=== PATIENT | male | born 1940 | race Caucasian/White ===

== ENCOUNTER → 2021-03-20 11:12 | Outpatient (CLI) | payer MEDICARE, OTHER, SELFPAY ==
--- NOTE | 2021-03-20 11:21 | RAD_ITS ---
STUDY: X-RAY - LUMBAR SPINE REASON FOR EXAM: Male, 80 years old. BACK PAIN TECHNIQUE: 2 view(s) of the lumbar spine were obtained. COMPARISON: None FINDINGS: There is straightening of the normal lumbar lordosis. There is a mild levoscoliosis of the lumbar spine. There is a normal alignment of the vertebrae. There is diffuse demineralization with multi-level endplate spondylosis. There is multi-level degenerative disc disease with multi-level disc space narrowing. 50% loss of height of the [id number]. Facet joint osteoarthritis. The soft tissue structures are unremarkable. RAD/Lumbar Spine 2 or 3 Views IMPRESSION: Degenerative changes of the spine, as detailed above. Mild levoscoliosis. Loss of the normal lumbar lordosis. 50% loss of height of the L4 vertebrae. Electronically Signed: Bucky Fletcher MD at 8:43 EDT , Service support ,
--- NOTE | 2021-03-20 11:40 | RAD_ITS ---
STUDY: X-RAY - CERVICAL SPINE REASON FOR EXAM: Male, 80 years old. Neck pain. TECHNIQUE: 3 view(s) of the cervical spine were obtained. COMPARISON: None FINDINGS: Osteopenia. Normal anterior atlantoaxial articulation. Normal odontoid process. Reversal of the normal lordotic curve, likely positional. Diffuse uncovertebral and facet sclerosis. Mild anterior wedge compression deformity of the C6 vertebral body. Diffuse intervertebral disc space narrowing most marked at C3-4, C4-5, C5-6 and C6-7. Osteophyte formation most marked at C3-4 and, C5-6 and C6-7. Bilateral carotid calcification. RAD/Cerv Spine 2 or 3 Views IMPRESSION: Osteopenia with diffuse moderate cervical spondylosis as described. No acute abnormality, evidence of erosive changes or fusion. Electronically Signed: Leonid Rowland MD at 10:56 EDT , Service support ,
[2021-03-20 12:41] LABS: Amphetamine Urine VISTA NEGATIVE (<1000 ng/mL); Barbiturate Urine VISTA NEGATIVE (< 200 ng/mL); Benzodiazepine Urine VISTA NEGATIVE (< 200 ng/mL); Cocaine Urine VISTA NEGATIVE (< 300 ng/mL); Ecstacy Urine VISTA NEGATIVE (< 500 ng/mL); Methadone Urine VISTA NEGATIVE (< 300 ng/mL); PCP Urine VISTA NEGATIVE (< 25 ng/mL); THC Urine VISTA NEGATIVE (< 50 ng/mL); Vista UDS pH Range 5
[2021-03-20 12:50] LABS: BUP Internal Control LINE = VALID (VALID); Buprenorphine Drug Screen Negative (<10 ng/mL)
== END ==
PROVIDERS: PCP Family Medicine; Referring Provider Anesthesiology Pain Medicine; Visit Provider Anesthesiology Pain Medicine
DX: F11.20 Opioid dependence, uncomplicated (principal); M54.2 Cervicalgia; M54.9 Dorsalgia, unspecified
CPT/HCPCS: 72040; 72100; 80307

== ENCOUNTER → 2021-05-30 09:42 | Outpatient (CLI) | payer MEDICARE, OTHER, SELFPAY ==
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
== END ==
PROVIDERS: PCP Family Medicine; Referring Provider Anesthesiology Pain Medicine; Visit Provider Anesthesiology Pain Medicine
DX: M54.9 Dorsalgia, unspecified (principal)
CPT/HCPCS: 72072

== ENCOUNTER → 2023-07-29 | Outpatient (REF) | payer MEDICARE, OTHER, SELFPAY ==
[2023-07-29 09:23] LABS: Absolute Lymphocyte Count 2.14 X10^3/uL (0.83-4.51); Absolute Neutrophil Count 3.4 X10^3/uL (2.0-7.7); Basophil# 0.02 X10^3/uL; Basophil% 0.3 % (0-1); Eosinophil# 0.33 X10^3/uL; Eosinophils% 4.8 % (0-5); Hematocrit 29.3 % (40-54); Hemoglobin 9.9 g/dL (13.0-16.5); Lymphocyte # 2.14 X10^3/ul (0.83-4.51); Lymphocyte % 31.4 % (19-41); Mean Corp Hgb Conc 33.8 g/dL (32-36); Mean Corpuscular Hgb 35.4 pg (27.0-32.0); Mean Corpuscular Volume 104.6 fL (80-94); Mean Platelet Vol. 12.7 fl (6.2-12.0); Monocyte# 0.86 X10^3/uL; Monocyte% 12.6 % (0-10); NRBC Flagged by Analyzer 0 % (0-5); Neutrophil # 3.44 X10^3/uL (2.7-7.7); Neutrophil % 50.6 % (47-70); POSITIVE COUNT YES; Platelet Count 75 K/mm3 (150-450); RBC Distribution Width CV 14.9 % (11.6-14.6); RBC Distribution Width SD 58.4 fl (35.1-43.9); White Blood Count 6.8 K/mm3 (4.4-11.0)
[2023-07-29 09:33] LABS: Vitamin B12 1463 pg/mL (211-911)
[2023-07-29 09:34] LABS: ALB/GLOB Ratio 0.5 RATIO (0.9-2.4); AST(SGOT) 44 U/L (15-37); Alanine Aminotransfer ALT/SGPT 31 U/L (16-61); Albumin, Serum 2.3 g/dL (3.2-5.0); Alkaline Phosphatase 136 U/L (45-117); Anion Gap 5 (5-15); BUN 21 mg/dL (7-18); BUN/Creat Ratio 16.5 RATIO (10-20); Calcium,Total 9.1 mg/dL (8.5-10.1); Chloride 104 mmol/L (98-107); Cholesterol 99 mg/dL (200); Creatinine, Serum 1.27 mg/dL (0.70-1.30); EST Glomerular Filtration Rate 58 mL/min (>60); Est Glom Filt Rate - Afr Amer 70 mL/min (>60); Globulin 4.5 g/dL (2.2-4.2); Glucose 109 mg/dL (74-106); High Density Lipoprotein 35 mg/dL; Potassium 4.2 mmol/L (3.5-5.1); Protein, Total 6.8 g/dL (6.4-8.2); Sodium Level 132 mmol/L (136-145); Triglycerides 93 mg/dL; Very Low Density Lipoprotein 19 mg/dL (5-40)
[2023-07-29 10:06] LABS: Differential Indicated SCAN CRITERIA MET
[2023-07-29 10:07] LABS: Differential Comment SCANNED; Platelet Estimate MOD DEC (ADEQ)
== END ==
LOC: OLS.WHLEAS 05:00
PROVIDERS: PCP Family Medicine; Visit Provider Internal Medicine
DX: E78.5 Hyperlipidemia, unspecified (principal); S82.121D Displaced fracture of lateral condyle of right tibia, subsequent encounter for closed fracture with routine healing; J44.9 Chronic obstructive pulmonary disease, unspecified
CPT/HCPCS: 36415; 80053; 80061; 82607; 85025

== ENCOUNTER → 2023-08-05 | Outpatient (REF) | payer MEDICARE, OTHER, SELFPAY ==
[2023-08-05 06:33] LABS: Absolute Lymphocyte Count 1.65 X10^3/uL (0.83-4.51); Absolute Neutrophil Count 4.2 X10^3/uL (2.0-7.7); Basophil# 0.01 X10^3/uL; Basophil% 0.1 % (0-1); Eosinophil# 0.35 X10^3/uL; Eosinophils% 4.9 % (0-5); Hematocrit 26.3 % (40-54); Lymphocyte # 1.65 X10^3/ul (0.83-4.51); Mean Corp Hgb Conc 34.2 g/dL (32-36); Mean Corpuscular Hgb 35.2 pg (27.0-32.0); Mean Corpuscular Volume 102.7 fL (80-94); Mean Platelet Vol. 11.8 fl (6.2-12.0); Monocyte# 0.91 X10^3/uL; Monocyte% 12.7 % (0-10); NRBC Flagged by Analyzer 0 % (0-5); Neutrophil # 4.23 X10^3/uL (2.7-7.7); Platelet Count 116 K/mm3 (150-450); RBC Distribution Width CV 14.6 % (11.6-14.6); RBC Distribution Width SD 55.2 fl (35.1-43.9); Red Blood Count 2.56 M/mm3 (4.6-6.2); White Blood Count 7.2 K/mm3 (4.4-11.0)
[2023-08-05 07:09] LABS: Anion Gap 5 (5-15); BUN 21 mg/dL (7-18); BUN/Creat Ratio 19.1 RATIO (10-20); Calcium,Total 8.6 mg/dL (8.5-10.1); Chloride 95 mmol/L (98-107); EST Glomerular Filtration Rate 68 mL/min (>60); Est Glom Filt Rate - Afr Amer 82 mL/min (>60); Glucose 113 mg/dL (74-106); Sodium Level 125 mmol/L (136-145)
== END ==
LOC: OLS.WHLEAS 05:00
PROVIDERS: PCP Family Medicine; Visit Provider Internal Medicine
DX: R53.82 Chronic fatigue, unspecified (principal); J44.9 Chronic obstructive pulmonary disease, unspecified
CPT/HCPCS: 36415; 80048; 85025

== ENCOUNTER 2023-08-06 16:51 | Inpatient (IN) | payer MEDICARE, OTHER, SELFPAY ==
[2023-08-06] VITALS (7 sets, daily range): BP systolic 100–130; BP diastolic 59–63; PULSE 58–71; RESP 11–20; TEMP 36.4–36.8; O2SAT 94–99; BMI 30.9; BMI 27.4
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
[2023-08-06 17:35] LABS: Absolute Lymphocyte Count 1.52 X10^3/uL (0.83-4.51); Absolute Neutrophil Count 3.6 X10^3/uL (2.0-7.7); Basophil# 0.02 X10^3/uL; Basophil% 0.3 % (0-1); Eosinophil# 0.27 X10^3/uL; Eosinophils% 4.3 % (0-5); Hemoglobin 9.2 g/dL (13.0-16.5); Lymphocyte # 1.52 X10^3/ul (0.83-4.51); Lymphocyte % 24.3 % (19-41); Mean Corp Hgb Conc 34.1 g/dL (32-36); Mean Corpuscular Volume 102.7 fL (80-94); Mean Platelet Vol. 11.3 fl (6.2-12.0); Monocyte# 0.86 X10^3/uL; Monocyte% 13.7 % (0-10); NRBC Flagged by Analyzer 0 % (0-5); Neutrophil # 3.58 X10^3/uL (2.7-7.7); Neutrophil % 57.2 % (47-70); Platelet Count 111 K/mm3 (150-450); RBC Distribution Width CV 14.2 % (11.6-14.6); Red Blood Count 2.63 M/mm3 (4.6-6.2); White Blood Count 6.3 K/mm3 (4.4-11.0)
[2023-08-06] MEDS: 0.9% Normal Saline (1000mL) 1,000 ML 100 ML IV (17:45)
[2023-08-06 17:52] LABS: Anion Gap 7 (5-15); BUN 17 mg/dL (7-18); BUN/Creat Ratio 16.3 RATIO (10-20); Calcium,Total 8.3 mg/dL (8.5-10.1); Chloride 91 mmol/L (98-107); Creatinine, Serum 1.04 mg/dL (0.70-1.30); EST Glomerular Filtration Rate 73 mL/min (>60); Est Glom Filt Rate - Afr Amer 88 mL/min (>60); Estimated Creatinine Clearance 64.26 ml/min; Glucose 128 mg/dL (74-106); Potassium 3.9 mmol/L (3.5-5.1); Sodium Level 122 mmol/L (136-145)
[2023-08-06 18:19] LABS: Bacteria 0 SEEN /hpf (None Seen); Mucous, Urine 0 SEEN /hpf (<or=2+); Red Blood Cells-Urine 0 SEEN /hpf (0-5); Squamous Epithelial Cells - UA 0 SEEN /hpf (0-5); White Blood Cells 0 SEEN /hpf (0-5)
[2023-08-06 18:21] LABS: Color, Urine Yellow (Yellow); Glucose, Dipstick Normal (Normal); Ketone-Dipstick Negative (Negative); Leukocyte Esterase-Dipstick Negative /ul (Negative); Nitrite-Dipstick Negative (Negative); Occult Blood-Urine Negative /ul (Negative); Protein-Dipstick 15 mg/dl (Negative); Specific Gravity, Urine 1.015 (1.002-1.030); Urine Bilirubin Dipstick Negative (Negative); Urine Clarity Clear (Clear); Urine Urobilinogen Normal (Normal)
--- NOTE | 2023-08-06 19:14 | ED.RN ---
Pt states his bladder feels like it's going to bust , unable to urinate other than it just dribbles out . 14 Tamazight coude placed with some difficulty due to phimosis, pt voices immediate relief with back pain. 2000 ml urine output from [place] after placing.
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
[2023-08-06 20:22] LABS: BNP,B-Type NATRIURETIC PEPTIDE 232.4 pg/mL (0-100)
[2023-08-06 22:27] LABS: Osmolality, Serum 259 mOsm/KG (280-301)
[2023-08-06 22:31] LABS: Anion Gap 6 (5-15); BUN 17 mg/dL (7-18); BUN/Creat Ratio 16.5 RATIO (10-20); Calcium,Total 8.2 mg/dL (8.5-10.1); Chloride 96 mmol/L (98-107); Creatinine, Serum 1.03 mg/dL (0.70-1.30); EST Glomerular Filtration Rate 73 mL/min (>60); Est Glom Filt Rate - Afr Amer 89 mL/min (>60); Estimated Creatinine Clearance 58.89 ml/min; Glucose 112 mg/dL (74-106); Potassium 3.9 mmol/L (3.5-5.1); Sodium Level 126 mmol/L (136-145)
[2023-08-06 23:01] LABS: Creatinine, Urine (random) < 13.00 mg/dL (NO RANGE EST.); Urea Nitrogen, Urine 138 mg/dL (NO RANGE EST.); Urine Chloride < 10 mmol/L (Not Establ.); Urine Sodium 10 mmol/L (Not Establ.)
[2023-08-06] MEDS: Polyethylene Glycol 3350 17 GM PACKET PO (23:02)
[2023-08-06] MEDS: Atorvastatin Calcium 80 MG Tablet PO (23:03)
[2023-08-06] MEDS: Mirtazapine 15 MG Tablet PO (23:03)
[2023-08-06] MEDS: Acetaminophen 500 MG Tablet 1000 MG PO (23:03)
[2023-08-06 23:04] LABS: Osmolality, Urine 91 mOsm/KG
[2023-08-06] MEDS: oxyCODONE 5 MG Tablet PO (23:05)
[2023-08-06] MEDS: Carvedilol 6.25 MG Tablet PO (23:07)
[2023-08-06] MEDS: Ipratropium/Albuterol Sulfate 3 ML AMPUL.NEB INHALATION (23:24)
[2023-08-07 00:46] LABS: Anion Gap 6 (5-15); BUN 17 mg/dL (7-18); Calcium,Total 8.1 mg/dL (8.5-10.1); Chloride 98 mmol/L (98-107); Creatinine, Serum 0.95 mg/dL (0.70-1.30); EST Glomerular Filtration Rate 81 mL/min (>60); Est Glom Filt Rate - Afr Amer 98 mL/min (>60); Estimated Creatinine Clearance 63.85 ml/min; Glucose 115 mg/dL (74-106); Sodium Level 127 mmol/L (136-145)
[2023-08-07 05:30] VITALS: BP 101/56; PULSE 56; RESP 18; TEMP 36.8; O2SAT 98
[2023-08-07] MEDS: oxyCODONE 5 MG Tablet PO ×2 (05:38→20:30)
[2023-08-07] MEDS: Acetaminophen 500 MG Tablet 1000 MG PO ×3 (05:38→20:30)
[2023-08-07 06:00] VITALS: BMI 27.4
[2023-08-07 08:02] VITALS: BP 91/51; PULSE 54; RESP 16; TEMP 36.7; O2SAT 97
[2023-08-07 08:13] LABS: Absolute Lymphocyte Count 1.17 X10^3/uL (0.83-4.51); Absolute Neutrophil Count 2.4 X10^3/uL (2.0-7.7); Basophil# 0.01 X10^3/uL; Basophil% 0.2 % (0-1); Eosinophil# 0.34 X10^3/uL; Eosinophils% 7.4 % (0-5); Hematocrit 24.5 % (40-54); Hemoglobin 8.4 g/dL (13.0-16.5); Lymphocyte # 1.17 X10^3/ul (0.83-4.51); Lymphocyte % 25.5 % (19-41); Mean Corp Hgb Conc 34.3 g/dL (32-36); Mean Corpuscular Hgb 35.3 pg (27.0-32.0); Mean Corpuscular Volume 102.9 fL (80-94); Mean Platelet Vol. 10.8 fl (6.2-12.0); Monocyte# 0.69 X10^3/uL; Monocyte% 15.1 % (0-10); NRBC Flagged by Analyzer 0 % (0-5); Neutrophil # 2.36 X10^3/uL (2.7-7.7); Neutrophil % 51.6 % (47-70); Platelet Count 118 K/mm3 (150-450); RBC Distribution Width CV 14.6 % (11.6-14.6); RBC Distribution Width SD 54.4 fl (35.1-43.9); Red Blood Count 2.38 M/mm3 (4.6-6.2); White Blood Count 4.6 K/mm3 (4.4-11.0)
[2023-08-07] MEDS: Carvedilol 6.25 MG Tablet PO ×2 (08:16→17:10)
[2023-08-07] MEDS: Primidone 50 MG Tablet PO ×2 (08:16→17:11)
[2023-08-07] MEDS: Aspirin 81 MG TAB.CHEW PO ×2 (08:16→17:10)
[2023-08-07] MEDS: Ferrous Sulfate 325 MG Tablet PO (08:17)
[2023-08-07 09:04] LABS: ALB/GLOB Ratio 0.5 RATIO (0.9-2.4); AST(SGOT) 36 U/L (15-37); Alanine Aminotransfer ALT/SGPT 23 U/L (16-61); Alkaline Phosphatase 150 U/L (45-117); Anion Gap 7 (5-15); BUN 16 mg/dL (7-18); BUN/Creat Ratio 16.8 RATIO (10-20); Calcium,Total 8.3 mg/dL (8.5-10.1); Chloride 99 mmol/L (98-107); Creatinine, Serum 0.95 mg/dL (0.70-1.30); EST Glomerular Filtration Rate 81 mL/min (>60); Est Glom Filt Rate - Afr Amer 98 mL/min (>60); Estimated Creatinine Clearance 63.85 ml/min; Globulin 3.7 g/dL (2.2-4.2); Glucose 96 mg/dL (74-106); Potassium 3.8 mmol/L (3.5-5.1); Protein, Total 5.7 g/dL (6.4-8.2); Sodium Level 127 mmol/L (136-145); Thyroid Stim Hormone (TSH) 2.37 uIU/mL (0.358-3.74)
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
[2023-08-07] MEDS: Menthol/Lanolin/Calamine/Znox 113 GM Tube 1 APPLIC TOPICAL ×2 (10:48→20:31)
[2023-08-07] MEDS: Tamsulosin HCl 0.4 MG Capsule 0.400000000000000022 MG PO (10:49)
[2023-08-07] MEDS: Lidocaine 5% Patch 1 PATCH TOPICAL (10:50)
[2023-08-07] MEDS: Polyethylene Glycol 3350 17 GM PACKET PO ×2 (10:51→20:30)
[2023-08-07] MEDS: Finasteride 5 MG Tablet PO (10:51)
[2023-08-07] MEDS: Pramipexole Di-HCl 0.5 MG Tablet PO (10:51)
[2023-08-07] MEDS: Pantoprazole Sodium 40 MG Tablet PO (10:51)
--- NOTE | 2023-08-07 11:27 | CASEMGMT ---
Discharge Planning Updates sent to [facility]. Tanya Fowler, Discharge Planning Asst.
[2023-08-07 13:57] VITALS: BP 101/53; PULSE 60; RESP 16; TEMP 36.8; O2SAT 97
[2023-08-07 14:32] VITALS: PULSE 67; RESP 17
[2023-08-07] MEDS: Ipratropium/Albuterol Sulfate 3 ML AMPUL.NEB INHALATION (14:36)
[2023-08-07] MEDS: 0.9% Normal Saline (1000mL) 1,000 ML 100 ML IV (17:09)
[2023-08-07 17:34] LABS: Bedside Glucose 109 mg/dL (74-106)
--- NOTE | 2023-08-07 18:51 | PCM.PN.HOSP ---
Reason for Visit Reason for Visit: Diagnoses Hypo-osmolality and hyponatremia (08/06/23) Major depressive disorder, single episode, unspecified (08/06/23) Chronic obstructive pulmonary disease, unspecified (08/06/23) Gastro-esophageal reflux disease without esophagitis (08/06/23) Benign prostatic hyperplasia without lower urinary tract symptoms (08/06/23) Retention of urine, unspecified (08/06/23) Unspecified fracture of shaft of right tibia, initial encounter for closed fracture (08/06/23) Subjective Subjective Patient was seen and examined today, his sodium is still low this morning, patient appears to me to be dry and I have placed him on IV normal saline, labs will be repeated in the morning. Patient is alert and oriented x 3 and is in no distress Objective Data Objective Data Vital Signs: Vital Signs Temp Pulse Resp BP Pulse Ox O2 Del Method 98.3 F 67 17 101/53 L 97 Room Air 08/07/23 13:57 08/07/23 14:32 08/07/23 14:32 08/07/23 13:57 08/07/23 13:57 08/07/23 13:57 Oxygen Delivery Method Room Air Weight: 89.4 kg Body Mass Index (BMI) 27.4 Intake & Output: Intake and Output for Last 24 Hours 08/05/23 08/06/23 08/07/23 23:59 23:59 23:59 Intake Total 1700 / 1700 Output Total 2000 / 2499 1350 / 1350 Balance -2000 / -2500 350 / 350 Lab / Micro Data 08/07/23 07:25 08/07/23 07:25 Labs: Laboratory Results - last 24 hr 08/06/23 17:25: B-Natriuretic Peptide 232.4 H 08/06/23 21:40: Urine Osmolality 91, Ur Random Sodium 10, Urine Creatinine < 13.00, Urine Potassium 5.0, Urine Chloride < 10, Urine Urea Nitrogen 138 08/06/23 22:11: Sodium 126 L, Potassium 3.9, Chloride 96 L, Carbon Dioxide 24.0, Anion Gap 6, BUN 17, Creatinine 1.03, Estim Creat Clear Calc 58.89, Est GFR (MDRD) Af Amer 89, Est GFR (MDRD) Non-Af 73, BUN/Creatinine Ratio 16.5, Glucose 112 H, Serum Osmolality 259 L, Calcium 8.2 L 08/07/23 00:14: Sodium 127 L, Potassium 4.0, Chloride 98, Carbon Dioxide 23.0, Anion Gap 6, BUN 17, Creatinine 0.95, Estim Creat Clear Calc 63.85, Est GFR (MDRD) Af Amer 98, Est GFR (MDRD) Non-Af 81, BUN/Creatinine Ratio 18.0, Glucose 115 H, Calcium 8.1 L 08/07/23 07:25: WBC 4.6, RBC 2.38 L, Hgb 8.4 L, Hct 24.5 L, MCV 102.9 H, MCH 35.3 H, MCHC 34.3, RDW Std Deviation 54.4 H, RDW Coeff of Eleanor 14.6, Plt Count 118 L, MPV 10.8, Immature Gran % (Auto) 0.200, Neut % (Auto) 51.6, Lymph % (Auto) 25.5, [place] % (Auto) 15.1 H, Eos % (Auto) 7.4 H, Baso % (Auto) 0.2, Absolute Neuts (auto) 2.4, Absolute Lymphs (auto) 1.17, Nucleated RBC % 0, Sodium 127 L, Potassium 3.8, Chloride 99, Carbon Dioxide 21.0, Anion Gap 7, BUN 16, Creatinine 0.95, Estim Creat Clear Calc 63.85, Est GFR (MDRD) Af Amer 98, Est GFR (MDRD) Non-Af 81, BUN/Creatinine Ratio 16.8, Glucose 96, Calcium 8.3 L, Total Bilirubin 0.60, AST 36, ALT 23, Alkaline Phosphatase 150 H, Total Protein 5.7 L, Albumin 2.0 L, Globulin 3.7, Albumin/Globulin Ratio 0.5 L, TSH 2.37 08/07/23 16:59: POC Glucose 109 H Physical Exam Const alert, oriented x3, no apparent distress and healthy appearing General Appearance: cooperative, well kempt and well developed Orientation / Consciousness: awake, oriented to person, oriented to place and oriented to time HEENT normocephalic and moist oral mucous membranes Eyes PERRL, EOMs intact bilaterally and conjunctivae normal Neck supple, no JVD, thyroid normal and no carotid bruits General: trachea midline Resp normal respiratory effort and clear to auscultation bilaterally Auscultation: Negative for rales, rhonchi or wheezes Cardio regular rate, regular rhythm, no murmurs, no rub and no gallops GI normal to inspection, nondistended, normoactive bowel sounds, soft to palpation, non-tender and non-distended Extremity no clubbing, cyanosis or edema Skin no rashes or lesions noted General Skin Exam: no breakdown Neuro oriented x3, CN's II-XII intact bilaterally, no focal motor deficits and no sensory deficits noted Sensorium / Orientation: awake and alert Speech: speech normal Psych affect normal Assessment & Plan Assessment/Plan (1) Hyponatremia: PLAN: Plan 1. Hyponatremia-secondary to low volume, patient will be given IV normal saline at 100 an hour and BMP will be rechecked tomorrow. #2 chronic anemia-etiology unclear at this point, CBC will be rechecked tomorrow, iron studies will be ordered in the morning, I will obtain a B12 level on the patient #3 hyperlipidemia-patient is on Crestor #4 chronic obstructive pulmonary disease-patient is on albuterol aerosol treatments as needed and DuoNebs as scheduled #5 recent closed right tibial fracture-PT and OT will see the patient Total clinical time spent by myself addressing the patient's medical issues, reviewing all of his data, and collaborating with patient's care team: 35 minutes Charges/Coding Visit Charges Inpatient E&M: 48451 Subs Hosp L2
[2023-08-07 20:28] VITALS: BP 101/74; PULSE 60; RESP 20; TEMP 37; O2SAT 95
[2023-08-07] MEDS: Mirtazapine 15 MG Tablet PO (20:31)
[2023-08-07] MEDS: Atorvastatin Calcium 80 MG Tablet PO (20:31)
[2023-08-08 02:19] VITALS: BP 101/58; PULSE 61; RESP 20; TEMP 36.9; O2SAT 98
[2023-08-08] MEDS: 0.9% Normal Saline (1000mL) 1,000 ML 100 ML IV ×2 (02:20→23:09)
[2023-08-08 03:13] VITALS: BMI 27.6
[2023-08-08] MEDS: Acetaminophen 500 MG Tablet 1000 MG PO ×3 (05:49→21:05)
[2023-08-08] MEDS: oxyCODONE 5 MG Tablet PO ×2 (05:49→09:37)
[2023-08-08 06:53] LABS: Absolute Lymphocyte Count 1.85 X10^3/uL (0.83-4.51); Absolute Neutrophil Count 3.2 X10^3/uL (2.0-7.7); Basophil# 0.02 X10^3/uL; Basophil% 0.3 % (0-1); Eosinophil# 0.44 X10^3/uL; Eosinophils% 6.9 % (0-5); Hematocrit 25.2 % (40-54); Hemoglobin 8.7 g/dL (13.0-16.5); Lymphocyte # 1.85 X10^3/ul (0.83-4.51); Lymphocyte % 28.9 % (19-41); Mean Corp Hgb Conc 34.5 g/dL (32-36); Mean Corpuscular Hgb 35.7 pg (27.0-32.0); Mean Corpuscular Volume 103.3 fL (80-94); Monocyte# 0.85 X10^3/uL; Monocyte% 13.3 % (0-10); NRBC Flagged by Analyzer 0 % (0-5); Neutrophil # 3.23 X10^3/uL (2.7-7.7); Neutrophil % 50.3 % (47-70); Platelet Count 127 K/mm3 (150-450); RBC Distribution Width CV 14.6 % (11.6-14.6); RBC Distribution Width SD 54.6 fl (35.1-43.9); Red Blood Count 2.44 M/mm3 (4.6-6.2); White Blood Count 6.4 K/mm3 (4.4-11.0)
[2023-08-08 07:22] LABS: Anion Gap 3 (5-15); BUN 20 mg/dL (7-18); BUN/Creat Ratio 19.2 RATIO (10-20); Calcium,Total 8.4 mg/dL (8.5-10.1); Chloride 102 mmol/L (98-107); Creatinine, Serum 1.04 mg/dL (0.70-1.30); EST Glomerular Filtration Rate 73 mL/min (>60); Est Glom Filt Rate - Afr Amer 88 mL/min (>60); Estimated Creatinine Clearance 58.33 ml/min; Glucose 90 mg/dL (74-106); Sodium Level 129 mmol/L (136-145)
[2023-08-08 07:30] VITALS: BP 114/78; PULSE 65; RESP 16; TEMP 36.6; O2SAT 96
[2023-08-08] MEDS: Ferrous Sulfate 325 MG Tablet PO (07:40)
[2023-08-08] MEDS: Carvedilol 6.25 MG Tablet PO ×2 (07:40→16:55)
[2023-08-08] MEDS: Primidone 50 MG Tablet PO ×2 (07:40→16:56)
[2023-08-08] MEDS: Aspirin 81 MG TAB.CHEW PO ×2 (07:40→16:55)
[2023-08-08] MEDS: Menthol/Lanolin/Calamine/Znox 113 GM Tube 1 APPLIC TOPICAL ×2 (09:28→21:03)
[2023-08-08] MEDS: Finasteride 5 MG Tablet PO (09:29)
[2023-08-08] MEDS: Pramipexole Di-HCl 0.5 MG Tablet PO (09:29)
[2023-08-08] MEDS: Pantoprazole Sodium 40 MG Tablet PO (09:29)
[2023-08-08] MEDS: Tamsulosin HCl 0.4 MG Capsule 0.400000000000000022 MG PO (09:29)
[2023-08-08] MEDS: Lidocaine 5% Patch 1 PATCH TOPICAL (09:30)
[2023-08-08] MEDS: Polyethylene Glycol 3350 17 GM PACKET PO (09:30)
[2023-08-08 13:21] LABS: Vitamin B12 1699 pg/mL (211-911)
[2023-08-08 13:24] LABS: Ferritin 741 ng/mL (26-388); Iron 45 ug/dL (65-175); Iron Binding Capacity,Total 144 ug/dL (250-450); PERCENT IRON SATURATION 31.2 % (15.0-55.0)
--- NOTE | 2023-08-08 13:47 | CASEMGMT ---
Social Work SW spoke with physician and pt is not ready for discharge today but possibly tomorrow. SW updated [facility] and they are able to accept pt over the weekend. SW met with pt and discussed discharge plan. Pt is agreeable to discharge plan.. Pt is currently private pay at [facility], SW explained that pt will return under his skilled Medicare Benefit. Pt is agreeable. Plan: [facility], when medically ready RADHA Saldana
[2023-08-08 14:28] VITALS: BP 111/73; PULSE 56; RESP 16; TEMP 36.6; O2SAT 99
--- NOTE | 2023-08-08 15:25 | PN.HOSP_ITS ---
Reason for Visit Reason for Visit: Diagnoses Hypo-osmolality and hyponatremia (08/06/23) Major depressive disorder, single episode, unspecified (08/06/23) Chronic obstructive pulmonary disease, unspecified (08/06/23) Gastro-esophageal reflux disease without esophagitis (08/06/23) Benign prostatic hyperplasia without lower urinary tract symptoms (08/06/23) Retention of urine, unspecified (08/06/23) Unspecified fracture of shaft of right tibia, initial encounter for closed fracture (08/06/23) Subjective Subjective Patient was seen and examined today, his sodium today was 129, I talked with his and family members in the room today at the time my examination. Patient is currently getting IV normal saline. Objective Data Objective Data Vital Signs: Vital Signs Temp Pulse Resp BP Pulse Ox O2 Del Method 97.8 F 56 L 16 111/73 99 Room Air 08/08/23 14:28 08/08/23 14:28 08/08/23 14:28 08/08/23 14:28 08/08/23 14:28 08/08/23 14:28 Oxygen Delivery Method Room Air Weight: 89.4 kg Body Mass Index (BMI) 27.6 Intake & Output: Intake and Output for Last 24 Hours 08/06/23 08/07/23 08/08/23 23:59 23:59 23:59 Intake Total 1700 / 2150 1868.33 / 1868.33 Output Total 1999 / 2499 2100 / 2750 2950 / 2950 Balance -2000 / -2500 -400 / -600 -1081.67 / -1081.67 Lab / Micro Data 08/08/23 06:10 08/08/23 06:10 Labs: Laboratory Results - last 24 hr 08/07/23 07:25: Vitamin B12 1699 H 08/07/23 16:59: POC Glucose 109 H 08/08/23 06:10: WBC 6.4, RBC 2.44 L, Hgb 8.7 L, Hct 25.2 L, MCV 103.3 H, MCH 35.7 H, MCHC 34.5, RDW Std Deviation 54.6 H, RDW Coeff of Eleanor 14.6, Plt Count 127 L, MPV 11.0, Immature Gran % (Auto) 0.300, Neut % (Auto) 50.3, Lymph % (Auto) 28.9, [place] % (Auto) 13.3 H, Eos % (Auto) 6.9 H, Baso % (Auto) 0.3, Absolute Neuts (auto) 3.2, Absolute Lymphs (auto) 1.85, Nucleated RBC % 0, Sodium 129 L, Potassium 4.0, Chloride 102, Carbon Dioxide 24.0, Anion Gap 3 L, BUN 20 H, Creatinine 1.04, Estim Creat Clear Calc 58.33, Est GFR (MDRD) Af Amer 88, Est GFR (MDRD) Non-Af 73, BUN/Creatinine Ratio 19.2, Glucose 90, Calcium 8.4 L, Iron 45 L, TIBC 144 L, Iron Saturation 31.2, Ferritin 741 H Physical Exam Narrative General: Resting comfortably but wakes up easily and answers questions HEENT: Atraumatic, normocephalic Eyes: Anicteric, normal conjunctiva, extraocular movements grossly intact Neck: Supple Respiratory: Clear to auscultation bilaterally, normal respiratory effort Cardiovascular: Regular rate and rhythm GI: Soft, nontender, nondistended Extremities: 1+ lower extremity edema Musculoskeletal: Moving all extremities Neuro: No overt focal neurological deficits Skin: No rashes appreciated Psych: Cooperative Const alert, oriented x3, no apparent distress and healthy appearing General Appearance: cooperative, well kempt and well developed Orientation / Consciousness: awake, oriented to person, oriented to place and oriented to time HEENT normocephalic and moist oral mucous membranes Eyes PERRL, EOMs intact bilaterally and conjunctivae normal Neck supple, no JVD, thyroid normal and no carotid bruits General: trachea midline Resp normal respiratory effort and clear to auscultation bilaterally Auscultation: Negative for rales, rhonchi or wheezes Cardio regular rate, regular rhythm, no murmurs, no rub and no gallops GI normal to inspection, nondistended, normoactive bowel sounds, soft to palpation, non-tender and non-distended Extremity no clubbing, cyanosis or edema Skin no rashes or lesions noted General Skin Exam: no breakdown Neuro oriented x3, CN's II-XII intact bilaterally, no focal motor deficits and no sensory deficits noted Sensorium / Orientation: awake and alert Speech: speech normal Psych affect normal Assessment & Plan Assessment/Plan (1) Hyponatremia: PLAN: Plan 1. Hyponatremia-secondary to low volume, patient will be given IV normal saline at 100 an hour and BMP will be rechecked tomorrow. #2 chronic anemia-etiology unclear at this point, patient's iron studies did not point to an iron deficiency anemia, he also does not have a B12 deficiency. #3 hyperlipidemia-patient is on Crestor #4 chronic obstructive pulmonary disease-patient is on albuterol aerosol treatments as needed and DuoNebs as scheduled #5 recent closed right tibial fracture-PT and OT will see the patient Total clinical time spent by myself addressing the patient's medical issues, reviewing all of his data, and collaborating with patient's care team: 25 candis cordero Charges/Coding Visit Charges Inpatient E&M: 96195 Subs Hosp L1
[2023-08-08 18:51] VITALS: PULSE 66; RESP 22
[2023-08-08] MEDS: Ipratropium/Albuterol Sulfate 3 ML AMPUL.NEB INHALATION (18:51)
[2023-08-08 20:47] VITALS: BP 126/60; PULSE 61; RESP 20; TEMP 36.4; O2SAT 98
[2023-08-08] MEDS: Atorvastatin Calcium 80 MG Tablet PO (21:02)
[2023-08-08] MEDS: Mirtazapine 15 MG Tablet PO (21:06)
[2023-08-08 23:40] VITALS: PULSE 65; O2SAT 94
[2023-08-09] VITALS (12 sets, daily range): BP systolic 118–137; BP diastolic 68–73; PULSE 60–79; RESP 16–22; TEMP 36.4–36.9; O2SAT 85–99; BMI 27.6
[2023-08-09] MEDS: Acetaminophen 500 MG Tablet 1000 MG PO ×3 (06:14→21:53)
[2023-08-09] MEDS: Ipratropium/Albuterol Sulfate 3 ML AMPUL.NEB INHALATION ×3 (06:52→19:02)
[2023-08-09 07:50] LABS: Anion Gap 3 (5-15); BUN 18 mg/dL (7-18); BUN/Creat Ratio 16.5 RATIO (10-20); Calcium,Total 8.4 mg/dL (8.5-10.1); Chloride 109 mmol/L (98-107); Creatinine, Serum 1.09 mg/dL (0.70-1.30); EST Glomerular Filtration Rate 69 mL/min (>60); Est Glom Filt Rate - Afr Amer 83 mL/min (>60); Estimated Creatinine Clearance 55.65 ml/min; Glucose 92 mg/dL (74-106); Potassium 4.1 mmol/L (3.5-5.1); Sodium Level 134 mmol/L (136-145)
[2023-08-09] MEDS: Pramipexole Di-HCl 0.5 MG Tablet PO (09:12)
[2023-08-09] MEDS: Primidone 50 MG Tablet PO ×2 (09:12→17:53)
[2023-08-09] MEDS: Pantoprazole Sodium 40 MG Tablet PO (09:13)
[2023-08-09] MEDS: Tamsulosin HCl 0.4 MG Capsule 0.400000000000000022 MG PO (09:13)
[2023-08-09] MEDS: 0.9% Normal Saline (1000mL) 1,000 ML 100 ML IV (09:13)
[2023-08-09] MEDS: Lidocaine 5% Patch 1 PATCH TOPICAL (09:14)
[2023-08-09] MEDS: Finasteride 5 MG Tablet PO (09:14)
[2023-08-09] MEDS: Polyethylene Glycol 3350 17 GM PACKET PO ×2 (09:15→21:52)
[2023-08-09] MEDS: Menthol/Lanolin/Calamine/Znox 113 GM Tube 1 APPLIC TOPICAL ×2 (09:15→21:54)
[2023-08-09] MEDS: Carvedilol 6.25 MG Tablet PO ×2 (09:16→17:52)
[2023-08-09] MEDS: Ferrous Sulfate 325 MG Tablet PO (09:17)
[2023-08-09] MEDS: Aspirin 81 MG TAB.CHEW PO ×2 (09:17→17:52)
[2023-08-09] MEDS: Albuterol 2.5 MG/3 ML VIAL.NEB. INHALATION (13:10)
[2023-08-09] MEDS: Furosemide 40 MG/4 ML Vial IV ×2 (14:42→17:54)
[2023-08-09] MEDS: Potassium Chloride Oral Tablet 20 MEQ PO ×2 (14:42→17:54)
[2023-08-09] MEDS: oxyCODONE 5 MG Tablet PO ×2 (14:46→22:34)
--- NOTE | 2023-08-09 15:02 | PN.HOSP_ITS ---
Reason for Visit Reason for Visit: Diagnoses Hypo-osmolality and hyponatremia (08/06/23) Major depressive disorder, single episode, unspecified (08/06/23) Chronic obstructive pulmonary disease, unspecified (08/06/23) Gastro-esophageal reflux disease without esophagitis (08/06/23) Benign prostatic hyperplasia without lower urinary tract symptoms (08/06/23) Retention of urine, unspecified (08/06/23) Unspecified fracture of shaft of right tibia, initial encounter for closed fracture (08/06/23) Subjective Subjective Patient was seen and examined his sodium was 134 today, unfortunately patient has noticeable lower extremity edema and edema in the abdominal soft tissue area as well as the scrotum. I am not sure how long this patient has had this edema and I did not notice it yesterday-but I did not examine the scrotal area yesterday. I have made a decision to stop the patient's IV fluids and administer IV Lasix now and starting tonight at 9 PM, patient has a history of pacemaker insertion, he does see a chemical engineering teacher in [place]. I do not know if the patient has an underlying cardiomyopathy or decreased ejection fraction. BMP will be repeated tomorrow. Objective Data Objective Data Vital Signs: Vital Signs Temp Pulse Resp BP Pulse Ox O2 Del Method O2 Flow Rate 98.2 F 79 22 H 119/70 99 Room Air 2 08/09/23 10:00 08/09/23 13:11 08/09/23 13:11 08/09/23 10:00 08/09/23 10:00 08/09/23 10:00 08/09/23 06:52 Oxygen Flow Rate (L/min) 2 Oxygen Delivery Method Room Air Weight: 89.4 kg Body Mass Index (BMI) 27.6 Intake & Output: Intake and Output for Last 24 Hours 08/07/23 08/08/23 08/09/23 23:59 23:59 23:59 Intake Total 1700 / 2150 2868.33 / 5868.33 5800 / 5800 Output Total 2100 / 2750 3850 / 5550 3800 / 3800 Balance -400 / -600 -981.67 / 318.33 1999 Lab / Micro Data 08/08/23 06:10 08/09/23 06:32 Labs: Laboratory Results - last 24 hr 08/09/23 06:32: Sodium 134 L, Potassium 4.1, Chloride 109 H, Carbon Dioxide 22.0, Anion Gap 3 L, BUN 18, Creatinine 1.09, Estim Creat Clear Calc 55.65, Est GFR (MDRD) Af Amer 83, Est GFR (MDRD) Non-Af 69, BUN/Creatinine Ratio 16.5, Glucose 92, Calcium 8.4 L Physical Exam Const alert, oriented x3, no apparent distress and healthy appearing General Appearance: cooperative, well kempt and well developed Orientation / Consciousness: awake, oriented to person, oriented to place and oriented to time HEENT normocephalic and moist oral mucous membranes Eyes PERRL, EOMs intact bilaterally and conjunctivae normal Neck supple, no JVD, thyroid normal and no carotid bruits General: trachea midline Resp normal respiratory effort, no retractions and no use of accessory muscles Resp Narrative: patient has faint expiratory wheezes bilaterally Auscultation: Negative for rales, rhonchi or wheezes Cardio regular rate, regular rhythm, S1 normal heart sound, S2 normal heart sound, no murmurs, no rub and no gallops GI normal to inspection, nondistended, normoactive bowel sounds, soft to palpation, non-tender and non-distended Extremity Extremity Narrative: Patient has marked lower extremity edema noted, patient has scrotal edema and evidence of edema around the soft tissues of the trunk General Extremity: edema bilateral Skin no rashes or lesions noted General Skin Exam: no breakdown Neuro oriented x3, CN's II-XII intact bilaterally, moves all extremities, no focal motor deficits and no sensory deficits noted Sensorium / Orientation: awake and alert Speech: speech normal Psych affect normal Assessment & Plan Assessment/Plan (1) Acute hyponatremia: (2) Hyponatremia: PLAN: Plan 1. Hyponatremia-secondary to to hypervolemia , patient will be given IV Lasix and oral potassium, BMP will be repeated tomorrow #2 chronic anemia-etiology unclear at this point, patient's iron studies did not point to an iron deficiency anemia, he also does not have a B12 deficiency. #3 hyperlipidemia-patient is on Crestor #4 chronic obstructive pulmonary disease-patient is on albuterol aerosol treatm ents as needed and DuoNebs as scheduled #5 recent closed right tibial fracture-PT and OT will see the patient #6 anasarca-etiology unclear at this point, patient may need further workup which could be done as an outpatient Total clinical time spent by myself addressing the patient's medical issues, reviewing all of his data, and collaborating with patient's care team: 35 minutes Charges/Coding Visit Charges Inpatient E&M: 47415 Subs Hosp L2
[2023-08-09] MEDS: Atorvastatin Calcium 80 MG Tablet PO (21:53)
[2023-08-09] MEDS: Mirtazapine 15 MG Tablet PO (21:53)
[2023-08-10] VITALS (12 sets, daily range): BP systolic 104–114; BP diastolic 57–68; PULSE 67–76; RESP 16–22; TEMP 36.6–37.1; O2SAT 94–98; BMI 29.5
[2023-08-10] MEDS: MELATONIN 3 MG TABLET PO (01:27)
[2023-08-10] MEDS: oxyCODONE 5 MG Tablet PO ×3 (03:19→18:47)
[2023-08-10] MEDS: Acetaminophen 500 MG Tablet 1000 MG PO ×2 (05:49→13:06)
[2023-08-10 06:46] LABS: Anion Gap 5 (5-15); BUN 22 mg/dL (7-18); BUN/Creat Ratio 19.1 RATIO (10-20); Calcium,Total 8.2 mg/dL (8.5-10.1); Chloride 101 mmol/L (98-107); Creatinine, Serum 1.15 mg/dL (0.70-1.30); EST Glomerular Filtration Rate 65 mL/min (>60); Est Glom Filt Rate - Afr Amer 78 mL/min (>60); Estimated Creatinine Clearance 58.52 ml/min; Glucose 98 mg/dL (74-106); Potassium 3.9 mmol/L (3.5-5.1); Sodium Level 128 mmol/L (136-145)
[2023-08-10] MEDS: Ferrous Sulfate 325 MG Tablet PO (09:15)
[2023-08-10] MEDS: Potassium Chloride Oral Tablet 20 MEQ PO ×2 (09:15→18:47)
[2023-08-10] MEDS: Finasteride 5 MG Tablet PO ×2 (09:15)
[2023-08-10] MEDS: Pantoprazole Sodium 40 MG Tablet PO (09:15)
[2023-08-10] MEDS: Primidone 50 MG Tablet PO ×2 (09:15→18:48)
[2023-08-10] MEDS: Carvedilol 6.25 MG Tablet PO ×2 (09:15→18:47)
[2023-08-10] MEDS: Menthol/Lanolin/Calamine/Znox 113 GM Tube 1 APPLIC TOPICAL (09:16)
[2023-08-10] MEDS: Lidocaine 5% Patch 1 PATCH TOPICAL (09:16)
[2023-08-10] MEDS: Polyethylene Glycol 3350 17 GM PACKET PO (09:16)
[2023-08-10] MEDS: Furosemide 40 MG/4 ML Vial IV ×2 (09:17→18:47)
[2023-08-10] MEDS: Aspirin 81 MG TAB.CHEW PO ×2 (09:17→18:47)
[2023-08-10] MEDS: Tamsulosin HCl 0.4 MG Capsule 0.400000000000000022 MG PO (09:18)
[2023-08-10] MEDS: Pramipexole Di-HCl 0.5 MG Tablet PO (09:18)
--- NOTE | 2023-08-10 09:43 | PCM.PN.HOSP ---
Reason for Visit Reason for Visit: Diagnoses Hypo-osmolality and hyponatremia (08/06/23) Major depressive disorder, single episode, unspecified (08/06/23) Chronic obstructive pulmonary disease, unspecified (08/06/23) Gastro-esophageal reflux disease without esophagitis (08/06/23) Benign prostatic hyperplasia without lower urinary tract symptoms (08/06/23) Retention of urine, unspecified (08/06/23) Unspecified fracture of shaft of right tibia, initial encounter for closed fracture (08/06/23) Subjective Subjective Patient was seen and examined today, he appears to be drinking large amounts of water in his room, I put him on fluid restriction today. Patient's sodium was low again today at 128, I placed the patient on Lasix yesterday I believe he is fluid overloaded and I am trying to diurese him. I will obtain an echocardiogram tomorrow to assess LV function. Patient sees a family nurse practitioner in [place] when I am not sure when his last echocardiogram was performed. Objective Data Objective Data Vital Signs: Vital Signs Temp Pulse Resp BP Pulse Ox O2 Del Method O2 Flow Rate 98.7 F 70 20 H 104/64 98 Room Air 2 08/10/23 09:03 08/10/23 09:03 08/10/23 09:03 08/10/23 09:03 08/10/23 09:03 08/10/23 09:03 08/09/23 06:52 Oxygen Flow Rate (L/min) 2 Oxygen Delivery Method Room Air Weight: 95.9 kg Body Mass Index (BMI) 29.5 Intake & Output: Intake and Output for Last 24 Hours 08/08/23 08/09/23 08/10/23 23:59 23:59 23:59 Intake Total 2868.33 / 5868.33 7128.33 / 7428.33 300 / 300 Output Total 3850 / 5550 4150 / 4475 1800 / 1800 Balance -981.67 / 318.33 2978.33 / 2953.33 -1500 / -1500 Lab / Micro Data 08/08/23 06:10 08/10/23 05:25 Labs: Laboratory Results - last 24 hr 08/10/23 05:25: Sodium 128 L, Potassium 3.9, Chloride 101, Carbon Dioxide 22.0, Anion Gap 5, BUN 22 H, Creatinine 1.15, Estim Creat Clear Calc 58.52, Est GFR (MDRD) Af Amer 78, Est GFR (MDRD) Non-Af 65, BUN/Creatinine Ratio 19.1, Glucose 98, Calcium 8.2 L Physical Exam Narrative alert, oriented x3, no apparent distress and healthy appearing General Appearance: cooperative, well kempt and well developed Orientation / Consciousness: awake, oriented to person, oriented to place and oriented to time HEENT normocephalic and moist oral mucous membranes Eyes PERRL, EOMs intact bilaterally and conjunctivae normal Neck supple, no JVD, thyroid normal and no carotid bruits General: trachea midline Resp normal respiratory effort, no retractions and no use of accessory muscles Resp Narrative: patient has faint expiratory wheezes bilaterally Auscultation: Negative for rales, rhonchi or wheezes Cardio regular rate, regular rhythm, S1 normal heart sound, S2 normal heart sound, no murmurs, no rub and no gallops GI normal to inspection, nondistended, normoactive bowel sounds, soft to palpation, non-tender and non-distended Extremity Extremity Narrative: Patient has marked lower extremity edema noted, patient has scrotal edema and evidence of edema around the soft tissues of the trunk General Extremity: edema bilateral Skin no rashes or lesions noted General Skin Exam: no breakdown Neuro oriented x3, CN's II-XII intact bilaterally, moves all extremities, no focal motor deficits and no sensory deficits noted Sensorium / Orientation: awake and alert Speech: speech normal Psych affect normal Assessment & Plan Assessment/Plan (1) Acute hyponatremia: (2) Hyponatremia: PLAN: Plan 1. Hyponatremia-secondary to to hypervolemia , patient will be given IV Lasix and oral potassium, BMP will be repeated tomorrow, I will have nephrology see the patient as today (Dr. Lau) for input #2 chronic anemia-etiology unclear at this point, patient's iron studies did not point to an iron deficiency anemia, he also does not have a B12 deficiency. #3 hyperlipidemia-patient is on Crestor #4 chronic obstructive pulmonary disease-patient is on albuterol aerosol treatments as needed and DuoNebs as scheduled #5 recent closed right tibial fracture-PT and OT will see the patient #6 anasarca-etiology unclear at this point, I will obtain an echocardiogram with the patient tomorrow #7 excessive water drinking-patient's fluids will be restricted Total clinical time spent by myself addressing the patient's medical issues, reviewing all of his data, and collaborating with patient's care team: 35 minutes Charges/Coding Visit Charges Inpatient E&M: [id number] Subs Hosp L2
[2023-08-10] MEDS: Ipratropium/Albuterol Sulfate 3 ML AMPUL.NEB INHALATION ×2 (12:26→19:33)
--- NOTE | 2023-08-10 13:20 | ECHOCS_ITS ---
Reason For Study: ANASARCA Procedure This was a 2D Doppler, Color Flow transthoracic echocardiogram. The study was technically difficult. Exam performed portable in patient room. Left Ventricle Normal size and thickness. The left ventricular ejection fraction is 50 %. Unable to assess diastolic function based on available data. Right Ventricle Normal right ventricle. Atria The left and right atria are normal. Mitral Valve Moderate mitral annular calcification. Trivial mitral valve insufficiency. Tricuspid Valve Trivial tricuspid valve insufficiency. Right ventricular systolic pressure estimated to be 36 mmHg. Aortic Valve Trisinus/trileaflet aortic valve. Pulmonic Valve The pulmonic valve is not well visualized. Great Vessels Mild to moderately dilated aortic root. Pericardium/Pleural No pericardial effusion. Medication Diluted definity 2.5ml given slow IV push to enhance endocardial definition. MMode/2D Measurements & Calculations LVIDd: 4.9 cm IVSd: 1.0 cm Ao root diam: 4.4 cm LVIDs: 3.3 cm LVPWd: 0.99 cm RVDd: 3.8 cm FS: 32.8 % LVAd ap4: 28.5 cm2 SV(MOD-sp4): 46.6 ml SV(sp4-el): 48.8 ml LVLd ap4: 7.8 cm EDV(MOD-sp4): 87.0 ml EDV(sp4-el): 87.9 ml LVAs ap4: 17.1 cm2 LVLs ap4: 6.4 cm ESV(MOD-sp4): 40.4 ml ESV(sp4-el): 39.1 ml EF(MOD-sp4): 53.6 % EF(sp4-el): 55.6 % LA dimension(2D): 3.3 cm RA A4 area: 18.5 cm2 TAPSE: 1.7 cm Time Measurements MV dec time: 0.17 sec Doppler Measurements & Calculations MV E max souleymane: 72.3 cm/sec Lat Peak E' Souleymane: 8.3 cm/sec Med Peak E' Souleymane: 5.5 cm/sec MV A max souleymane: 101.0 cm/sec E/E' lat: 8.7 E/E' med: 13.1 MV E/A: 0.72 MV V2 max: 104.1 cm/sec Ao V2 max: 99.1 cm/sec LV V1 max: 70.2 cm/sec MV max P.3 mmHg Ao max P.9 mmHg LV V1 max P.0 mmHg MV V2 mean: 59.9 cm/sec MV mean P.7 mmHg MV V2 VTI: 25.4 cm PA V2 max: 66.6 cm/sec TR max souleymane: 258.5 cm/sec TR max P.7 mmHg ECHO/Echo Complete W/ Contrast Interpretation Summary The study was technically difficult. The left ventricular ejection fraction is 50 %. Moderate mitral annular calcification. Mild to moderately dilated aortic root. Ordering Physician: Moustapha Delaney Referring Physician: ELTON PACK Performed By: Clarice Alarcon RDCS
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
[2023-08-10 19:53] LABS: Urine Sodium 61 mmol/L (Not Establ.)
[2023-08-11] VITALS (9 sets, daily range): BP systolic 106–127; BP diastolic 60–72; PULSE 66–81; RESP 16–22; TEMP 36.5–37.1; O2SAT 95–98; BMI 28.9
[2023-08-11] MEDS: Acetaminophen 500 MG Tablet 1000 MG PO ×4 (00:11→21:01)
[2023-08-11] MEDS: Mirtazapine 15 MG Tablet PO ×2 (00:12→21:01)
[2023-08-11] MEDS: Atorvastatin Calcium 80 MG Tablet PO ×2 (00:12→21:01)
[2023-08-11] MEDS: Menthol/Lanolin/Calamine/Znox 113 GM Tube 1 APPLIC TOPICAL ×3 (00:14→23:51)
[2023-08-11] MEDS: oxyCODONE 5 MG Tablet PO ×5 (00:15→23:51)
[2023-08-11 01:38] LABS: Osmolality, Serum 281 mOsm/KG (280-301)
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
[2023-08-11 06:59] LABS: Absolute Lymphocyte Count 2.02 X10^3/uL (0.83-4.51); Absolute Neutrophil Count 3.8 X10^3/uL (2.0-7.7); Basophil# 0.03 X10^3/uL; Basophil% 0.4 % (0-1); Eosinophil# 0.39 X10^3/uL; Eosinophils% 5.5 % (0-5); Hematocrit 27.7 % (40-54); Hemoglobin 9.5 g/dL (13.0-16.5); Lymphocyte # 2.02 X10^3/ul (0.83-4.51); Lymphocyte % 28.7 % (19-41); Mean Corp Hgb Conc 34.3 g/dL (32-36); Mean Corpuscular Hgb 35.6 pg (27.0-32.0); Mean Corpuscular Volume 103.7 fL (80-94); Mean Platelet Vol. 10.6 fl (6.2-12.0); Monocyte# 0.82 X10^3/uL; Monocyte% 11.7 % (0-10); NRBC Flagged by Analyzer 0 % (0-5); Neutrophil # 3.75 X10^3/uL (2.7-7.7); Neutrophil % 53.4 % (47-70); Platelet Count 118 K/mm3 (150-450); RBC Distribution Width CV 15.3 % (11.6-14.6); Red Blood Count 2.67 M/mm3 (4.6-6.2)
[2023-08-11 07:14] LABS: Anion Gap 5 (5-15); BUN 24 mg/dL (7-18); Calcium,Total 8.6 mg/dL (8.5-10.1); Chloride 106 mmol/L (98-107); Creatinine, Serum 1.26 mg/dL (0.70-1.30); EST Glomerular Filtration Rate 58 mL/min (>60); Est Glom Filt Rate - Afr Amer 70 mL/min (>60); Estimated Creatinine Clearance 52.85 ml/min; Glucose 96 mg/dL (74-106); Magnesium 2.2 mg/dL (1.6-2.6); Sodium Level 133 mmol/L (136-145)
[2023-08-11] MEDS: Ipratropium/Albuterol Sulfate 3 ML AMPUL.NEB INHALATION ×3 (07:43→19:35)
[2023-08-11] MEDS: Aspirin 81 MG TAB.CHEW PO ×2 (08:45→17:46)
[2023-08-11] MEDS: Tamsulosin HCl 0.4 MG Capsule 0.400000000000000022 MG PO (08:46)
[2023-08-11] MEDS: Finasteride 5 MG Tablet PO (08:46)
[2023-08-11] MEDS: Primidone 50 MG Tablet PO ×2 (08:46→17:47)
[2023-08-11] MEDS: Pantoprazole Sodium 40 MG Tablet PO (08:46)
[2023-08-11] MEDS: Polyethylene Glycol 3350 17 GM PACKET PO ×2 (08:47→21:02)
[2023-08-11] MEDS: Ferrous Sulfate 325 MG Tablet PO (08:47)
[2023-08-11] MEDS: Carvedilol 6.25 MG Tablet PO ×2 (08:47→17:46)
[2023-08-11] MEDS: Potassium Chloride Oral Tablet 20 MEQ PO ×2 (08:48→17:46)
[2023-08-11] MEDS: Lidocaine 5% Patch 1 PATCH TOPICAL (08:48)
[2023-08-11] MEDS: Furosemide 40 MG/4 ML Vial IV (08:48)
[2023-08-11] MEDS: Pramipexole Di-HCl 0.5 MG Tablet PO (08:50)
--- NOTE | 2023-08-11 15:32 | PN.RENAL_ITS ---
Subjective Subjective No new events Objective Data Objective Data Vital Signs: Vital Signs Temp Pulse Resp BP Pulse Ox O2 Del Method O2 Flow Rate 98 F 81 16 115/71 95 Room Air 2 08/11/23 15:02 08/11/23 15:02 08/11/23 15:02 08/11/23 15:02 08/11/23 15:02 08/11/23 15:02 08/09/23 06:52 Oxygen Flow Rate (L/min) 2 Oxygen Delivery Method Room Air Weight: 93.7 kg Body Mass Index (BMI) 28.9 Intake & Output: Intake and Output for Last 24 Hours 08/09/23 08/10/23 08/11/23 23:59 23:59 23:59 Intake Total 7128.33 / 7428.33 940 / 1140 600 / 600 Output Total 4150 / 4475 2250 / 4150 2850 / 2850 Balance 2978.33 / 2953.33 -1310 / -3010 -2250 / -2250 Lab / Micro Data 08/11/23 06:52 08/11/23 06:52 Labs: Laboratory Results - last 24 hr 08/10/23 19:30: Serum Osmolality 281, Ur Random Sodium 61, Urine Potassium 26.0 08/11/23 06:52: WBC 7.0, RBC 2.67 L, Hgb 9.5 L, Hct 27.7 L, MCV 103.7 H, MCH 35.6 H, MCHC 34.3, RDW Std Deviation 58.0 H, RDW Coeff of Eleanor 15.3 H, Plt Count 118 L, MPV 10.6, Immature Gran % (Auto) 0.300, Neut % (Auto) 53.4, Lymph % (Auto) 28.7, [place] % (Auto) 11.7 H, Eos % (Auto) 5.5 H, Baso % (Auto) 0.4, Absolute Neuts (auto) 3.8, Absolute Lymphs (auto) 2.02, Nucleated RBC % 0, Sodium 133 L, Potassium 4.0, Chloride 106, Carbon Dioxide 22.0, Anion Gap 5, BUN 24 H, Creatinine 1.26, Estim Creat Clear Calc 52.85, Est GFR (MDRD) Af Amer 70, Est GFR (MDRD) Non-Af 58 L, BUN/Creatinine Ratio 19.0, Glucose 96, Calcium 8.6, Magnesium 2.2 Physical Exam Narrative General: Alert and oriented x3, NAD. HEENT: Normocephalic, atraumatic. Mucous membrane moist without erythema. PERRLA, EOMI. Hearing is intact. Neck: Supple, no JVD. Trachea is midline. No thyromegaly or lymphadenopathy. Cardiovascular: Normal S1, S2. No rubs, murmurs, or gallops. Respiratory: Lungs are clear to auscultation bilaterally. No wheezing, rhonchi, or rales. Abdomen: Normal bowel sounds, soft, nontender, no guarding or rebound, no organomegaly. Extremities: 2+ lower extremity edema. No clubbing or cyanosis. Musculoskeletal: Full passive range of motion, no joint swelling. Psychiatric: Normal mood and affect. Skin: Warm and dry, no rash. Neurologic: Cranial nerve II to XII are grossly intact. No focal neurologic deficits. Assessment & Plan Assessment/Plan (1) Hyponatremia: PLAN: Impression/Plan: The patient is a 83-year-old man with past history of COPD, hypertension, anemia, hyperlipidemia, depression, and BPH. The patient presented to hospital from [facility] on 08/06/2023 with hyponatremia. Serum sodium initially improved from 122 mmol/L on presentation up to 134 mmol/L on 08/09/2023. Serum sodium is lower again today on 08/10/2023 at 128 mmol/L. Nephrology is following for persistent hyponatremia. Hyponatremia. The patient presented to hospital from [facility] on 08/06/2023 with hyponatremia. Urine sodium and osmolality are low As edema, echo pending Currently on IV Lasix sodium is close to normal
[2023-08-11] MEDS: 0.9% Saline Lock 10 ML Syringe IV (15:40)
[2023-08-11] MEDS: Morphine 2 MG/ML Syringe IV (15:40)
[2023-08-11] MEDS: MELATONIN 3 MG TABLET PO (21:01)
[2023-08-11] MEDS: Morphine 4 MG/ML Syringe IV (21:01)
[2023-08-12] VITALS (21 sets, daily range): BP systolic 76–123; BP diastolic 43–62; PULSE 52–82; RESP 16–18; TEMP 36.3–36.9; O2SAT 92–99
[2023-08-12] MEDS: Morphine 4 MG/ML Syringe IV (03:41)
[2023-08-12] MEDS: 0.9% Saline Lock 10 ML Syringe IV ×2 (03:42→22:48)
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
[2023-08-12] MEDS: oxyCODONE 5 MG Tablet PO (06:30)
[2023-08-12] MEDS: Acetaminophen 500 MG Tablet 1000 MG PO ×3 (06:31→22:50)
[2023-08-12 06:55] LABS: Absolute Lymphocyte Count 1.77 X10^3/uL (0.83-4.51); Basophil# 0.03 X10^3/uL; Basophil% 0.3 % (0-1); Eosinophil# 0.24 X10^3/uL; Eosinophils% 2.6 % (0-5); Hematocrit 30.2 % (40-54); Hemoglobin 10.1 g/dL (13.0-16.5); Lymphocyte # 1.77 X10^3/ul (0.83-4.51); Lymphocyte % 19.3 % (19-41); Mean Corp Hgb Conc 33.4 g/dL (32-36); Mean Corpuscular Hgb 35.6 pg (27.0-32.0); Mean Corpuscular Volume 106.3 fL (80-94); Mean Platelet Vol. 10.5 fl (6.2-12.0); Monocyte# 1.03 X10^3/uL; Monocyte% 11.3 % (0-10); NRBC Flagged by Analyzer 0 % (0-5); Neutrophil # 6.04 X10^3/uL (2.7-7.7); Neutrophil % 66.1 % (47-70); Platelet Count 144 K/mm3 (150-450); RBC Distribution Width CV 15.8 % (11.6-14.6); RBC Distribution Width SD 61.4 fl (35.1-43.9); Red Blood Count 2.84 M/mm3 (4.6-6.2); White Blood Count 9.2 K/mm3 (4.4-11.0)
--- NOTE | 2023-08-12 07:51 | NURSING ---
pt only had about 100cc in the primofit canister, pt still stating his abd was uncomfortable but said it did not feel like he had to void, pt was bladder scanned for 1879ml, keene placed for retention. 2000ml out right away. pt also inc of loose black stool, spec sent to lab.
[2023-08-12 08:09] LABS: ALB/GLOB Ratio 0.5 RATIO (0.9-2.4); AST(SGOT) 49 U/L (15-37); Alanine Aminotransfer ALT/SGPT 29 U/L (16-61); Albumin, Serum 2.5 g/dL (3.2-5.0); Alkaline Phosphatase 190 U/L (45-117); Anion Gap 10 (5-15); BUN 32 mg/dL (7-18); BUN/Creat Ratio 20.9 RATIO (10-20); Calcium,Total 8.9 mg/dL (8.5-10.1); Chloride 106 mmol/L (98-107); Creatinine, Serum 1.53 mg/dL (0.70-1.30); EST Glomerular Filtration Rate 47 mL/min (>60); Est Glom Filt Rate - Afr Amer 56 mL/min (>60); Estimated Creatinine Clearance 43.52 ml/min; Globulin 4.7 g/dL (2.2-4.2); Glucose 118 mg/dL (74-106); Potassium 4.2 mmol/L (3.5-5.1); Protein, Total 7.2 g/dL (6.4-8.2); Sodium Level 135 mmol/L (136-145)
[2023-08-12] MEDS: Aspirin 81 MG TAB.CHEW PO (08:37)
[2023-08-12] MEDS: Pantoprazole Sodium 40 MG Tablet PO (08:37)
[2023-08-12] MEDS: Potassium Chloride Oral Tablet 20 MEQ PO ×2 (08:37→17:05)
[2023-08-12] MEDS: Ferrous Sulfate 325 MG Tablet PO (08:38)
[2023-08-12] MEDS: Tamsulosin HCl 0.4 MG Capsule 0.400000000000000022 MG PO (08:38)
[2023-08-12] MEDS: Pramipexole Di-HCl 0.5 MG Tablet PO (08:38)
[2023-08-12] MEDS: Finasteride 5 MG Tablet PO (08:38)
[2023-08-12] MEDS: Primidone 50 MG Tablet PO ×2 (08:38→17:05)
[2023-08-12] MEDS: Lidocaine 5% Patch 1 PATCH TOPICAL (08:38)
[2023-08-12] MEDS: Menthol/Lanolin/Calamine/Znox 113 GM Tube 1 APPLIC TOPICAL ×2 (08:41→22:49)
--- NOTE | 2023-08-12 09:44 | CASEMGMT ---
[facility]charge [facility]. Tanya Fowler, Discharge Planning Asst.
--- NOTE | 2023-08-12 12:19 | PCM.PN.REN ---
Subjective Subjective Events noted. Objective Data Objective Data Vital Signs: Vital Signs Temp Pulse Resp BP Pulse Ox O2 Del Method O2 Flow Rate 97.6 F L 77 16 92/51 L 95 Room Air 2 08/12/23 11:19 08/12/23 11:19 08/12/23 11:19 08/12/23 12:16 08/12/23 11:19 08/12/23 11:19 08/09/23 06:52 Oxygen Flow Rate (L/min) 2 Oxygen Delivery Method Room Air Weight: 93.7 kg Body Mass Index (BMI) 28.9 Intake & Output: Intake and Output for Last 24 Hours 08/10/23 08/11/23 08/12/23 23:59 23:59 23:59 Intake Total 940 / 1140 900 / 900 420 / 420 Output Total 2250 / 4150 3000 / 3000 2200 / 2200 Balance -1310 / -3010 -2100 / -2100 -1780 / -1780 Lab / Micro Data 08/12/23 06:11 08/12/23 06:11 Labs: Laboratory Results - last 24 hr 08/12/23 06:11: WBC 9.2, RBC 2.84 L, Hgb 10.1 L, Hct 30.2 L, MCV 106.3 H, MCH 35.6 H, MCHC 33.4, RDW Std Deviation 61.4 H, RDW Coeff of Eleanor 15.8 H, Plt Count 144 L, MPV 10.5, Immature Gran % (Auto) 0.400, Neut % (Auto) 66.1, Lymph % (Auto) 19.3, [place] % (Auto) 11.3 H, Eos % (Auto) 2.6, Baso % (Auto) 0.3, Absolute Neuts (auto) 6.0, Absolute Lymphs (auto) 1.77, Nucleated RBC % 0, Sodium 135 L, Potassium 4.2, Chloride 106, Carbon Dioxide 19.0 L, Anion Gap 10, BUN 32 H, Creatinine 1.53 H, Estim Creat Clear Calc 43.52, Est GFR (MDRD) Af Amer 56 L, Est GFR (MDRD) Non-Af 47 L, BUN/Creatinine Ratio 20.9 H, Glucose 118 H, Calcium 8.9, Total Bilirubin 0.70, AST 49 H, ALT 29, Alkaline Phosphatase 190 H, Total Protein 7.2, Albumin 2.5 L, Globulin 4.7 H, Albumin/Globulin Ratio 0.5 L Micro: Microbiology 08/12/23 06:57 Stool Stool Occult Blood (ASHIA) - Final Occult Blood Positive Radiography Diagnostic Testing: Radiology Impression Echocardiogram 08/10/23 13:20 Interpretation Summary The study was technically difficult. The left ventricular ejection fraction is 50 %. Moderate mitral annular calcification. Mild to moderately dilated aortic root. Ordering Physician: Moustapha Delaney Referring Physician: ELTON PACK Performed By: Clarice Alarcon RDCS Physical Exam Narrative HEENT: Normocephalic, atraumatic. Mucous membrane moist without erythema. PERRLA, EOMI. Hearing is intact. Neck: Supple, no JVD. Trachea is midline. No thyromegaly or lymphadenopathy. Cardiovascular: Normal S1, S2. No rubs, murmurs, or gallops. Respiratory: Lungs are clear to auscultation bilaterally. No wheezing, rhonchi, or rales. Abdomen: Normal bowel sounds, soft, nontender, no guarding or rebound, no organomegaly. Extremities: 2+ lower extremity edema. No clubbing or cyanosis. Musculoskeletal: Full passive range of motion, no joint swelling. Psychiatric: Normal mood and affect. Skin: Warm and dry, no rash. Neurologic: Cranial nerve II to XII are grossly intact. No focal neurologic deficits. Assessment & Plan Assessment/Plan (1) Hyponatremia: PLAN: Impression/Plan: The patient is a 83-year-old man with past history of COPD, hypertension, anemia, hyperlipidemia, depression, and BPH. The patient presented to hospital from [facility] on 08/06/2023 with hyponatremia. Serum sodium initially improved from 122 mmol/L on presentation up to 134 mmol/L on 08/09/2023. Serum sodium is lower again today on 08/10/2023 at 128 mmol/L. Nephrology is following for persistent hyponatremia. Hyponatremia. The patient presented to hospital from SNF on 08/[facility]/2023 with hyponatremia. Urine sodium and osmolality are low Echocardiogram was okay Received IV Lasix, better Today blood pressure is low, creatinine is higher. Sodium 134. We will hold Lasix. Discussed with hospitalist
[2023-08-12] MEDS: 0.9% Normal Saline (500mL Bag) 500 ML 999 ML IV (12:26)
[2023-08-12] MEDS: fentaNYL 100 MCG/2 ML Ampul 25 MCG IV (12:42)
[2023-08-12] MEDS: Pantoprazole Sodium 40 MG in 0.9% Normal Saline (100mL MB+) 100 ML 330 MG IV ×2 (12:59→22:48)
[2023-08-12] MEDS: 0.9% Normal Saline (250mL Bag) 250 ML 15 ML IV (13:00)
[2023-08-12 13:06] LABS: Hematocrit 25.8 % (40-54); Hemoglobin 8.7 g/dL (13.0-16.5)
[2023-08-12] MEDS: Ipratropium/Albuterol Sulfate 3 ML AMPUL.NEB INHALATION ×2 (13:35→19:25)
[2023-08-12 16:09] LABS: Hematocrit 27.1 % (40-54)
[2023-08-12] MEDS: 0.9% Normal Saline (250mL Bag) 250 ML 999 ML IV (17:35)
[2023-08-12] MEDS: Mirtazapine 15 MG Tablet PO (22:50)
[2023-08-12] MEDS: Atorvastatin Calcium 80 MG Tablet PO (22:50)
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
[2023-08-13] VITALS (10 sets, daily range): BP systolic 87–133; BP diastolic 47–78; PULSE 60–75; RESP 14–20; TEMP 36.3–36.8; O2SAT 94–99; BMI 28.6
--- NOTE | 2023-08-13 | EGD_PTH ---
PATHOLOGY RESULTS PATIENT: RANDAL AGUILAR LOC: MS3 U#:[id number] AGE/SX: 83/M ROOM: AK311 RE08/06/[address]: Dr. Olga Edwards MD : 1940 BED: 1 DIS: 08/14/2023 SPEC #: [id number] RECD: 08/13/23 12:50 STATUS: AVIVA REQ #: [id number] DANTE: 08/13/23 00:[address]: Ra Sharihsaan DEPT: SURGICAL PATHOLOGY RECD BY: Lewis Blackwell ENTERED: 08/13/23 12:51 SP TYPE: EGD BIOPSY OTHR DR: MD Dr. Casey Jerez MD Dr. Mark Tereletsky, DO Dr. Natthavat Tanphaichitr, MD Dr. Paige Pierce, MD Tissues: Duodenum, NOS Procedures: Surgery Specimen Level IV Comments: @ Ordering doctor for SUIV edited from to @ by ANGY at 08/13/23 1533 @ Submitting doctor edited from to @ by RGOOD at 08/13/23 1533 HEADER OPERATION: EGD with biopsy and dilatation PRE-OP DIAGNOSIS: Hyponatremia TISSUE SUBMITTED: Duodenal stricture biopsy MICROSCOPIC DIAGNOSIS Duodenal stricture, biopsy: Fragments of duodenal mucosa with acute and chronic inflammation, congestion and hemorrhage. MOMO:yarely 08/14/2023 MICROSCOPIC DESCRIPTION Slides are reviewed. GROSS DESCRIPTION Received in fixative is one container labeled with the patient's name and designated duodenal stricture biopsy. The specimen consists of multiple irregular fragments of light miguel soft tissue that in aggregate measure 1.0 x 0.5 x 0.1 cm. The specimen is totally submitted in one cassette. / MOMO:yarely 08/13/2023 TC:3 CPT: 47664
--- NOTE | 2023-08-13 06:00 | EKG12_ITS ---
Test Reason : PRE-OP Blood Pressure : / mmHG Vent. Rate : 064 BPM Atrial Rate : 064 BPM P-R Int : 198 ms QRS Dur : 180 ms QT Int : 488 ms P-R-T Axes : 079 -68 087 degrees QTc Int : 503 ms Atrial-sensed ventricular-paced rhythm Abnormal ECG No previous ECGs available Confirmed by Fabien Rangel ([id number]), editorial project manager JONN QUESADA ([id number]) on 08/19/2023 9:45:30 AM Referred By: Confirmed By:Fabien Rangel
[2023-08-13] MEDS: Acetaminophen 500 MG Tablet 1000 MG PO ×3 (06:07→21:11)
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
[2023-08-13 06:44] LABS: Absolute Lymphocyte Count 1.72 X10^3/uL (0.83-4.51); Absolute Neutrophil Count 5.5 X10^3/uL (2.0-7.7); Basophil# 0.02 X10^3/uL; Basophil% 0.2 % (0-1); Eosinophils% 4.7 % (0-5); Hematocrit 30.6 % (40-54); Hemoglobin 10.2 g/dL (13.0-16.5); Lymphocyte # 1.72 X10^3/ul (0.83-4.51); Lymphocyte % 20.1 % (19-41); Mean Corp Hgb Conc 33.3 g/dL (32-36); Mean Corpuscular Hgb 34.7 pg (27.0-32.0); Mean Corpuscular Volume 104.1 fL (80-94); Monocyte# 0.86 X10^3/uL; Monocyte% 10.1 % (0-10); NRBC Flagged by Analyzer 0 % (0-5); Neutrophil % 64.4 % (47-70); POSITIVE MORPHOLOGY YES; Platelet Count 108 K/mm3 (150-450); RBC Distribution Width CV 17.2 % (11.6-14.6); RBC Distribution Width SD 65.4 fl (35.1-43.9); Red Blood Count 2.94 M/mm3 (4.6-6.2); White Blood Count 8.5 K/mm3 (4.4-11.0)
[2023-08-13 06:46] LABS: Differential Indicated SCAN CRITERIA MET
[2023-08-13 06:53] LABS: International Normalized Ratio 1.3; Prothrombin Time (Protime)PT. 16.1 SECONDS (11.7-14.9)
[2023-08-13 06:54] LABS: Partial Thromboplast Time 39.9 Seconds (24.1-36.2)
[2023-08-13] MEDS: Lactated Ringers 1,000 ML 15 ML IV (07:14)
[2023-08-13 07:18] LABS: ALB/GLOB Ratio 0.5 RATIO (0.9-2.4); AST(SGOT) 38 U/L (15-37); Alanine Aminotransfer ALT/SGPT 24 U/L (16-61); Albumin, Serum 2.1 g/dL (3.2-5.0); Alkaline Phosphatase 147 U/L (45-117); Anion Gap -1 (5-15); BUN 29 mg/dL (7-18); Calcium,Total 8.2 mg/dL (8.5-10.1); Chloride 106 mmol/L (98-107); Creatinine, Serum 1.38 mg/dL (0.70-1.30); EST Glomerular Filtration Rate 52 mL/min (>60); Est Glom Filt Rate - Afr Amer 63 mL/min (>60); Estimated Creatinine Clearance 48.25 ml/min; Globulin 3.9 g/dL (2.2-4.2); Glucose 100 mg/dL (74-106); Potassium 4.6 mmol/L (3.5-5.1); Sodium Level 132 mmol/L (136-145)
[2023-08-13 07:21] LABS: Anisocytosis 2+; Differential Comment SCANNED
--- NOTE | 2023-08-13 07:54 | OP.CCLET_ITS ---
08/13/2023 Casey Martinez Re : Upper GI endoscopy procedure for Monty Roberts Dear Michelle This procedure was performed on Sunday, August 13, 2023. My impressions and recommendations are as follows: Impressions : - LA Grade B erosive esophagitis with no bleeding. - Bile gastritis. - Acquired duodenal stenosis. Dilated. Biopsied. Recommendations : - Return patient to [facility] for [facility] care. - Full liquid diet. - Continue present medications. -Temporary duodenal stent to safely open the duodenal stricture as continuous balloon dilation at that portion in the duodenum is very dangerous for perforation. My findings are described in the full procedure note, which is enclosed. If I can be of further assistance, please feel free to contact me at . Sincerely, Kenroy Mccarthy, 08/13/2023 7:54:05 AM This report has been signed electronically.
--- NOTE | 2023-08-13 07:54 | OP.EGD_ITS ---
Patient Name: Monty Roberts Procedure Date: 08/13/2023 7:19 AM Date of : 1940 Age: 83 Procedure: Upper GI endoscopy Indications: Epigastric abdominal pain, Iron deficiency anemia Providers: Kenroy Mccarthy DO Medicines: Monitored Anesthesia Care Patient Profile: This is an 83 year old male. Refer to note in patient chart for documentation of history and physical. Patient has symptoms. Complications: No immediate complications. Procedure: Pre-Anesthesia Assessment: - Prior to the procedure, a History and Physical was performed, and patient medications and allergies were reviewed. The patient is competent. The risks and benefits of the procedure and the sedation options and risks were discussed with the patient. All questions were answered and informed consent was obtained. Patient identification and proposed procedure were verified by the physician in the pre-procedure area. Mental Status Examination: alert and oriented. Airway Examination: normal oropharyngeal airway and neck mobility. Respiratory Examination: clear to auscultation. CV Examination: normal. Prophylactic Antibiotics: The patient does not require prophylactic antibiotics. Prior Anticoagulants: The patient has taken no anticoagulant or antiplatelet agents. ASA Grade Assessment: III - A patient with severe systemic disease. After reviewing the risks and benefits, the patient was deemed in satisfactory condition to undergo the procedure. The anesthesia plan was to use monitored anesthesia care (MAC). Immediately prior to administration of medications, the patient was re-assessed for adequacy to receive sedatives. The heart rate, respiratory rate, oxygen saturations, blood pressure, adequacy of pulmonary ventilation, and response to care were monitored throughout the procedure. The physical status of the patient was re-assessed after the procedure. After obtaining informed consent, the endoscope was passed under direct vision. Throughout the procedure, the patient's blood pressure, pulse, and oxygen saturations were monitored continuously. The Endoscope was introduced through the mouth, and advanced to the second part of duodenum. The upper GI endoscopy was accomplished without difficulty. The patient tolerated the procedure well. Scope In: 7:30:11 AM Scope Out: 7:43:52 AM Total Procedure Duration Time 0 hours 13 minutes 41 seconds Findings: LA Grade B (one or more mucosal breaks greater than 5 mm, not extending between the tops of two mucosal folds) esophagitis with no bleeding was found 37 to 39 cm from the incisors. Diffuse severe inflammation characterized by congestion (edema) and erosions was found in the entire examined stomach. An acquired benign-appearing, intrinsic severe stenosis was found in the first portion of the duodenum and was traversed after dilation. A TTS dilator was passed through the scope. Dilation with a 15 mm pyloric balloon dilator was performed. The dilation site was examined and showed mild improvement in luminal narrowing. Estimated blood loss was minimal. Biopsies were taken with a cold forceps for histology. Verification of patient identification for the specimen was done. Estimated blood loss was minimal. A 5 mm non-bleeding diverticulum was found in the first portion of the duodenum. Impression: - LA Grade B erosive esophagitis with no bleeding. - Bile gastritis. - Acquired duodenal stenosis. Dilated. Biopsied. Recommendation: - Return patient to [facility] for ongoing care. - Full liquid diet. - Continue present medications. -Temporary duodenal stent to safely open the duodenal stricture as continuous balloon dilation at that portion in the duodenum is very dangerous for perforation. Procedure Code(s): --- Professional --- 89287, Esophagogastroduodenoscopy, flexible, transoral; with dilation of gastric/duodenal stricture(s) (eg, balloon, bougie) 23469, 59,51, Esophagogastroduodenoscopy, flexible, transoral; with biopsy, single or multiple CPT copyright 2021 [employer]. All rights reserved. The codes documented in this report are preliminary and upon provider contracting consultant review may be revised to meet current compliance requirements. Kenroy Mccarthy DO 08/13/2023 7:54:05 AM This report has been signed electronically. Number of Addenda: 0 Note Initiated On: 08/13/2023 7:19 AM
[2023-08-13] MEDS: Potassium Chloride Oral Tablet 20 MEQ PO (10:14)
[2023-08-13] MEDS: Pantoprazole Sodium 40 MG in 0.9% Normal Saline (100mL MB+) 100 ML 330 MG IV ×2 (10:14→21:12)
[2023-08-13] MEDS: Primidone 50 MG Tablet PO ×2 (10:15→17:15)
[2023-08-13] MEDS: Carvedilol 6.25 MG Tablet PO ×2 (10:15→17:04)
[2023-08-13] MEDS: Ferrous Sulfate 325 MG Tablet PO (10:15)
[2023-08-13] MEDS: Finasteride 5 MG Tablet PO (10:15)
[2023-08-13] MEDS: Lidocaine 5% Patch 1 PATCH TOPICAL (10:17)
[2023-08-13] MEDS: Menthol/Lanolin/Calamine/Znox 113 GM Tube 1 APPLIC TOPICAL ×2 (10:17→21:13)
[2023-08-13] MEDS: Tamsulosin HCl 0.4 MG Capsule 0.400000000000000022 MG PO (10:17)
[2023-08-13] MEDS: oxyCODONE 5 MG Tablet PO (10:21)
--- NOTE | 2023-08-13 11:36 | PCM.PN.REN ---
Subjective Subjective No new complaints today Objective Data Objective Data Vital Signs: Vital Signs Temp Pulse Resp BP Pulse Ox O2 Del Method O2 Flow Rate 98.1 F 60 16 108/51 L 96 Room Air 2 08/13/23 08:56 08/13/23 08:56 08/13/23 08:56 08/13/23 08:56 08/13/23 08:56 08/13/23 09:19 08/13/23 08:00 Oxygen Flow Rate (L/min) 2 Oxygen Delivery Method Room Air Weight: 93.7 kg Body Mass Index (BMI) 28.9 Intake & Output: Intake and Output for Last 24 Hours 08/11/23 08/12/23 08/13/23 23:59 23:59 23:59 Intake Total 900 / 900 1530 / 1530 690 / 690 Output Total 3000 / 3000 2350 / 2350 700 / 700 Balance -2100 / -2100 -820 / -820 -10 / -10 Lab / Micro Data 08/13/23 06:15 08/13/23 06:15 Labs: Laboratory Results - last 24 hr 08/12/23 12:55: Hgb 8.7 L, Hct 25.8 L, Blood Type O POSITIVE, Antibody Screen NEGATIVE, Crossmatch See Detail 08/12/23 15:55: Hgb 9.0 L, Hct 27.1 L 08/13/23 06:15: WBC 8.5, RBC 2.94 L, Hgb 10.2 L, Hct 30.6 L, MCV 104.1 H, MCH 34.7 H, MCHC 33.3, RDW Std Deviation 65.4 H, RDW Coeff of Eleanor 17.2 H, Plt Count 108 L, MPV 10.0, Immature Gran % (Auto) 0.500, Neut % (Auto) 64.4, Lymph % (Auto) 20.1, [place] % (Auto) 10.1 H, Eos % (Auto) 4.7, Baso % (Auto) 0.2, Absolute Neuts (auto) 5.5, Absolute Lymphs (auto) 1.72, Nucleated RBC % 0, Differential Comment SCANNED, Anisocytosis 2+, PT 16.1 H, INR 1.3, APTT 39.9 H, Sodium 132 L, Potassium 4.6, Chloride 106, Carbon Dioxide 27.0, Anion Gap -1 L, BUN 29 H, Creatinine 1.38 H, Estim Creat Clear Calc 48.25, Est GFR (MDRD) Af Amer 63, Est GFR (MDRD) Non-Af 52 L, BUN/Creatinine Ratio 21.0 H, Glucose 100, Calcium 8.2 L, Total Bilirubin 0.60, AST 38 H, ALT 24, Alkaline Phosphatase 147 H, Total Protein 6.0 L, Albumin 2.1 L, Globulin 3.9, Albumin/Globulin Ratio 0.5 L Micro: Microbiology 08/12/23 06:57 Stool Stool Occult Blood (ASHIA) - Final Occult Blood Positive Physical Exam Narrative HEENT: Normocephalic, atraumatic. Mucous membrane moist without erythema. PERRLA, EOMI. Hearing is intact. Neck: Supple, no JVD. Trachea is midline. No thyromegaly or lymphadenopathy. Cardiovascular: Normal S1, S2. No rubs, murmurs, or gallops. Respiratory: Lungs are clear to auscultation bilaterally. No wheezing, rhonchi, or rales. Abdomen: Normal bowel sounds, soft, nontender, no guarding or rebound, no organomegaly. Extremities: 2+ lower extremity edema. No clubbing or cyanosis. Musculoskeletal: Full passive range of motion, no joint swelling. Psychiatric: Normal mood and affect. Skin: Warm and dry, no rash. Neurologic: Cranial nerve II to XII are grossly intact. No focal neurologic deficits. Assessment & Plan Assessment/Plan (1) Hyponatremia: PLAN: Impression/Plan: The patient is a 83-year-old man with past history of COPD, hypertension, anemia, hyperlipidemia, depression, and BPH. The patient presented to hospital from [facility] on 08/06/2023 with hyponatremia. Serum sodium initially improved from 122 mmol/L on presentation up to 134 mmol/L on 08/09/2023. Serum sodium is lower again today on 08/10/2023 at 128 mmol/L. Nephrology is following for persistent hyponatremia. Hyponatremia. The patient presented to hospital from [facility] on 08/06/2023 with hyponatremia. Urine sodium and osmolality are low Echocardiogram was okay Improved with IV Lasix. Developed GI bleed. Lasix is currently on hold. Clinically still has some lower extremity edema. Blood pressure is okay. Sodium remains above 130. Likely resume oral Lasix tomorrow LIZZY. Likely prerenal. Creatinine is better.
[2023-08-13] MEDS: Ipratropium/Albuterol Sulfate 3 ML AMPUL.NEB INHALATION ×2 (13:12→19:46)
--- NOTE | 2023-08-13 16:03 | NURSING ---
reviewed student charting
[2023-08-13] MEDS: Mirtazapine 15 MG Tablet PO (21:11)
[2023-08-13] MEDS: Atorvastatin Calcium 80 MG Tablet PO (21:11)
[2023-08-13] MEDS: Pramipexole Di-HCl 0.5 MG Tablet PO (21:12)
[2023-08-13] MEDS: 0.9% Saline Lock 10 ML Syringe IV (21:12)
[2023-08-14] VITALS (8 sets, daily range): BP systolic 94–124; BP diastolic 54–74; PULSE 62–80; RESP 16–20; TEMP 36.1–36.8; O2SAT 95–100; BMI 30.2
[2023-08-14] MEDS: oxyCODONE 5 MG Tablet PO (01:09)
--- NOTE | 2023-08-14 06:06 | PN.HOSP_ITS ---
Reason for Visit Reason for Visit: Diagnoses Hypo-osmolality and hyponatremia (08/06/23) Major depressive disorder, single episode, unspecified (08/06/23) Chronic obstructive pulmonary disease, unspecified (08/06/23) Gastro-esophageal reflux disease without esophagitis (08/06/23) Benign prostatic hyperplasia without lower urinary tract symptoms (08/06/23) Retention of urine, unspecified (08/06/23) Unspecified fracture of shaft of right tibia, initial encounter for closed fracture (08/06/23) Subjective Subjective Patient with no acute events overnight per self and per nursing report. Patient blood pressure remained low normal however did receive his Coreg but continue to hold on previously initiated Lasix with discussion with nephrology for plan continuation outpatient but hold parameters. Discussed with patient and family to skilled facility clearance per GI following procedure to trend with clears today and transition to soft the day following and then regular diet the day after. Discussed patient's labs with family and noted that they were stable and would be repeated at skilled facility with follow-up visits. Patient denies any complaints, notes feeling improved, remains amenable to duodenal stent today and plan of care. Patient denies fevers, chills, nausea, emesis, abdominal pain, chest pain or dyspnea. Objective Data Objective Data Vital Signs: Vital Signs Temp Pulse Resp BP Pulse Ox O2 Del Method O2 Flow Rate 98.2 F 75 16 99/64 97 Room Air 2 08/14/23 03:39 08/14/23 03:39 08/14/23 03:39 08/14/23 03:39 08/14/23 03:39 08/14/23 03:39 08/13/23 08:00 Oxygen Flow Rate (L/min) 2 Oxygen Delivery Method Room Air Weight: 216 lb 0.848 oz Body Mass Index (BMI) 30.2 Intake & Output: Intake and Output for Last 24 Hours 08/12/23 08/13/23 08/14/23 23:59 23:59 23:59 Intake Total 1530 / 1530 910 / 910 Output Total 2350 / 2350 900 / 1500 950 / 950 Balance -820 / -820 10 / -590 -950 / -950 Lab / Micro Data 08/14/23 06:05 08/14/23 06:05 Labs: Laboratory Results - last 24 hr 08/13/23 06:15: WBC 8.5, RBC 2.94 L, Hgb 10.2 L, Hct 30.6 L, MCV 104.1 H, MCH 34.7 H, MCHC 33.3, RDW Std Deviation 65.4 H, RDW Coeff of Eleanor 17.2 H, Plt Count 108 L, MPV 10.0, Immature Gran % (Auto) 0.500, Neut % (Auto) 64.4, Lymph % (Auto) 20.1, [place] % (Auto) 10.1 H, Eos % (Auto) 4.7, Baso % (Auto) 0.2, Absolute Neuts (auto) 5.5, Absolute Lymphs (auto) 1.72, Nucleated RBC % 0, Differential Comment SCANNED, Anisocytosis 2+, PT 16.1 H, INR 1.3, APTT 39.9 H, Sodium 132 L, Potassium 4.6, Chloride 106, Carbon Dioxide 27.0, Anion Gap -1 L, BUN 29 H, Creatinine 1.38 H, Estim Creat Clear Calc 48.25, Est GFR (MDRD) Af Amer 63, Est GFR (MDRD) Non-Af 52 L, BUN/Creatinine Ratio 21.0 H, Glucose 100, Calcium 8.2 L, Total Bilirubin 0.60, AST 38 H, ALT 24, Alkaline Phosphatase 147 H, Total Protein 6.0 L, Albumin 2.1 L, Globulin 3.9, Albumin/Globulin Ratio 0.5 L Micro: Microbiology 08/12/23 06:57 Stool Stool Occult Blood (ASHIA) - Final Occult Blood Positive Charges/Coding Visit Charges Inpatient E&M: 90130 Disch Hosp >30min
[2023-08-14] MEDS: Acetaminophen 500 MG Tablet 1000 MG PO ×2 (06:17→13:09)
[2023-08-14] MEDS: Ipratropium/Albuterol Sulfate 3 ML AMPUL.NEB INHALATION ×2 (07:05→13:41)
[2023-08-14 07:15] LABS: Absolute Neutrophil Count 6.7 X10^3/uL (2.0-7.7); Basophil# 0.02 X10^3/uL; Basophil% 0.2 % (0-1); Eosinophil# 0.31 X10^3/uL; Eosinophils% 3.2 % (0-5); Hematocrit 30.7 % (40-54); Hemoglobin 10.1 g/dL (13.0-16.5); Lymphocyte % 19.3 % (19-41); Mean Corp Hgb Conc 32.9 g/dL (32-36); Mean Corpuscular Hgb 34.8 pg (27.0-32.0); Mean Corpuscular Volume 105.9 fL (80-94); Mean Platelet Vol. 11.2 fl (6.2-12.0); Monocyte# 0.86 X10^3/uL; Monocyte% 8.7 % (0-10); NRBC Flagged by Analyzer 0 % (0-5); Neutrophil # 6.71 X10^3/uL (2.7-7.7); Neutrophil % 68.3 % (47-70); POSITIVE COUNT YES; POSITIVE MORPHOLOGY YES; Platelet Count 96 K/mm3 (150-450); RBC Distribution Width CV 17.1 % (11.6-14.6); RBC Distribution Width SD 65.7 fl (35.1-43.9); White Blood Count 9.8 K/mm3 (4.4-11.0)
[2023-08-14 07:19] LABS: Differential Indicated SCAN CRITERIA MET
[2023-08-14 07:45] LABS: ALB/GLOB Ratio 0.6 RATIO (0.9-2.4); AST(SGOT) 38 U/L (15-37); Alanine Aminotransfer ALT/SGPT 22 U/L (16-61); Alkaline Phosphatase 142 U/L (45-117); Anion Gap 4 (5-15); BUN 22 mg/dL (7-18); BUN/Creat Ratio 15.9 RATIO (10-20); Calcium,Total 8.3 mg/dL (8.5-10.1); Chloride 110 mmol/L (98-107); Creatinine, Serum 1.38 mg/dL (0.70-1.30); EST Glomerular Filtration Rate 52 mL/min (>60); Est Glom Filt Rate - Afr Amer 63 mL/min (>60); Estimated Creatinine Clearance 49.26 ml/min; Globulin 3.5 g/dL (2.2-4.2); Glucose 94 mg/dL (74-106); Potassium 4.2 mmol/L (3.5-5.1); Protein, Total 5.5 g/dL (6.4-8.2); Sodium Level 137 mmol/L (136-145)
[2023-08-14] MEDS: Carvedilol 6.25 MG Tablet PO (08:15)
[2023-08-14 08:17] LABS: Anisocytosis 2+; Platelet Estimate MOD DEC (ADEQ)
[2023-08-14] MEDS: Lactated Ringers 1,000 ML 15 ML IV (10:06)
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
--- NOTE | 2023-08-14 11:15 | RAD_ITS ---
PROCEDURE: EGD with duodenal stent placement DATE OF EXAMINATION: August 14, 2023. INDICATION: Male, 83 years old. Duodenal obstruction. FLUOROSCOPY TIME (if supplied): (1 minute and one second) minutes/seconds. 33.4 mGy RAD/Fluoroscopy 1 Hr or Less IMPRESSION: Fluoroscopic services provided for duodenal stent placement. Electronically Signed: Bucky Fletcher MD at 12:08 EST ,
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
--- NOTE | 2023-08-14 11:35 | PHA.DC.MR.R ---
Pharmacy [place] Med Reconciliation Pharmacy Service has performed discharge medication reconciliation for this patient upon transfer to [facility]. The patient's discharge medication list was reviewed for discrepancies and discrepancies were resolved. Medications at Discharge Home Medications lidocaine 4 % topical patch (AsperFlex (lidocaine)) 1 patch topical DAILY LOWER BACK PAIN 08/02/22 mirtazapine 15 mg tablet 15 mg PO QHS DEPRESSION 08/02/22 ondansetron HCl 4 mg tablet 4 mg PO Q8H PRN NAUSEA/VOMITING 08/02/22 sennosides 8.6 mg-docusate sodium 50 mg capsule (Senna Plus) 1 tab-cap PO QHS CONSTIPATION 08/02/22 tamsulosin 0.4 mg capsule 0.4 mg PO DAILY PROSTATE 08/02/22 aspirin 81 mg chewable tablet (Aspirin Childrens) 1 tab PO BID HEART HEALTH 08/06/23 docusate sodium 100 mg capsule (Col-Rite) 100 mg PO BID CONSTIPATION 08/06/23 dutasteride 0.5 mg capsule 0.5 mg PO DAILY PROSTATE 08/06/23 ferrous sulfate 325 mg (65 mg iron) tablet 325 mg PO DAILY SUPPLEMENT 08/06/23 guaifenesin 600 mg tablet, extended release 12 hr (Mucinex) 600 mg PO BID COUGH/CONGESTION 08/06/23 pramipexole 0.5 mg tablet 0.5 mg PO DAILY PARKINSONS 08/06/23 primidone 50 mg tablet 50 mg PO BID SEIZURES 08/06/23 rosuvastatin 40 mg tablet 40 mg PO QHS CHOLESTEROL 08/06/23 sodium chloride 1,000 mg soluble tablet 1,000 mg PO DAILY DEHYDRATION 08/06/23 tiotropium 2.5 mcg-olodaterol 2.5 mcg/actuation mist for inhalation (Stiolto Respimat) 2 puff inhalation DAILY COPD 08/06/23 carvedilol 6.25 mg tablet 6.25 mg PO BID HEART 30 days #60 tabs 08/14/23 furosemide 40 mg tablet (Lasix) 40 mg PO QODAY Edema #30 tabs 08/14/23 melatonin 3 mg tablet 3 mg PO QHS PRN PRN Insomnia #0 tabs 08/14/23 menthol 0.44 %-zinc oxide 20.6 % topical ointment (Calmoseptine) 1 applic topical BID #0 grams 02/08/24 oxycodone-acetaminophen 5 mg-325 mg tablet 1 tab PO Q6H PRN pain (scale score 4-10) 5 days #20 tabs 08/14/23 pantoprazole 40 mg tablet,delayed release (Protonix) 40 mg PO DAILY 30 days #30 tabs 08/14/23 polyethylene glycol 3350 17 gram oral powder packet 17 g PO BID #0 ea 08/14/23
--- NOTE | 2023-08-14 12:05 | OP.EGD_ITS ---
Patient Name: Monty Roberts Procedure Date: 08/14/2023 11:17 AM Date of : 1940 Age: 83 Procedure: Upper GI endoscopy Indications: Failure to respond to medical treatment, Abnormal CT of the GI tract, Duodenal obstruction Providers: Kenroy Mccarthy DO Medicines: Monitored Anesthesia Care Patient Profile: This is an 83 year old male. Refer to note in patient chart for documentation of history and physical. Patient has symptoms of acute abdominal distention and chronic abdominal distention. Complications: No immediate complications. Procedure: Pre-Anesthesia Assessment: - Prior to the procedure, a History and Physical was performed, and patient medications and allergies were reviewed. The patient is competent. The risks and benefits of the procedure and the sedation options and risks were discussed with the patient. All questions were answered and informed consent was obtained. Patient identification and proposed procedure were verified by the physician. Mental Status Examination: alert and oriented. Airway Examination: normal oropharyngeal airway and neck mobility. Respiratory Examination: clear to auscultation. CV Examination: normal. Prophylactic Antibiotics: The patient does not require prophylactic antibiotics. Prior Anticoagulants: The patient has taken no anticoagulant or antiplatelet agents. ASA Grade Assessment: III - A patient with severe systemic disease. After reviewing the risks and benefits, the patient was deemed in satisfactory condition to undergo the procedure. The anesthesia plan was to use monitored anesthesia care (MAC). Immediately prior to administration of medications, the patient was re-assessed for adequacy to receive sedatives. The heart rate, respiratory rate, oxygen saturations, blood pressure, adequacy of pulmonary ventilation, and response to care were monitored throughout the procedure. The physical status of the patient was re-assessed after the procedure. After obtaining informed consent, the endoscope was passed under direct vision. Throughout the procedure, the patient's blood pressure, pulse, and oxygen saturations were monitored continuously. The Endoscope was introduced through the mouth, and advanced to the second part of duodenum. The upper GI endoscopy was accomplished without difficulty. The patient tolerated the procedure well. Scope In: 11:25:09 AM Scope Out: 11:43:38 AM Total Procedure Duration Time 0 hours 18 minutes 29 seconds Findings: Non-severe esophagitis with no bleeding was found 37 to 40 cm from the incisors. Diffuse moderate inflammation characterized by congestion (edema) and erosions was found in the entire examined stomach. An acquired benign-appearing, intrinsic severe stenosis was found in the duodenal bulb and was traversed after dilation. A TTS dilator was passed through the scope. Dilation with a 15 mm pyloric balloon dilator was performed under fluoroscopic guidance. The dilation site was examined and showed moderate improvement in luminal narrowing. This was stented with a 22 mm x 9 cm Evolution controlled-release uncovered stent under fluoroscopic guidance. Estimated blood loss was minimal. For location marking, three hemostatic clips were successfully placed. 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 There was no bleeding at the end of the procedure. Impression: - Non-severe erosive esophagitis with no bleeding. - Chronic gastritis. - Acquired duodenal stenosis. Dilated. Prosthesis placed. Clips were placed. 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 - No specimens collected. Recommendation: - [facility]. - Full liquid diet today. - Continue present medications. Procedure Code(s): --- Professional --- 15917, Esophagogastroduodenoscopy, flexible, transoral; with placement of endoscopic stent (includes pre- and post-dilation and guide wire passage, when performed) 96467, 26, Intraluminal dilation of strictures and/or obstructions (eg, esophagus), radiological supervision and interpretation 87505, Unlisted procedure, small intestine CPT copyright 2021 [employer]. All rights reserved. The codes documented in this report are preliminary and upon supervisor extruding department review may be revised to meet current compliance requirements. Kenroy Mccarthy DO 08/14/2023 12:04:42 PM This report has been signed electronically. Number of Addenda: 0 Note Initiated On: 08/14/2023 11:17 AM
--- NOTE | 2023-08-14 12:05 | OP.CCLET_ITS ---
08/14/2023 Casey Martinez Re : Upper GI endoscopy procedure for Monty Roberts Dear Michelle This procedure was performed on August. My impressions and recommendations are as follows: Impressions : - Non-severe erosive esophagitis with no bleeding. - Chronic gastritis. - Acquired duodenal stenosis. Dilated. Prosthesis placed. Clips were placed. 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 - No specimens collected. Recommendations : - Return [facility] to [facility] care. - Full liquid diet today. - Continue present medications. My findings are described in the full procedure note, which is enclosed. If I can be of further assistance, please feel free to contact me at . Sincerely, Kenroy Mccarthy, 08/14/2023 12:04:42 PM This report has been signed electronically.
[2023-08-14] MEDS: Primidone 50 MG Tablet PO (13:02)
[2023-08-14] MEDS: Tamsulosin HCl 0.4 MG Capsule 0.400000000000000022 MG PO (13:05)
[2023-08-14] MEDS: Ferrous Sulfate 325 MG Tablet PO (13:06)
[2023-08-14] MEDS: Lidocaine 5% Patch 1 PATCH TOPICAL (13:07)
[2023-08-14] MEDS: Finasteride 5 MG Tablet PO (13:08)
--- NOTE | 2023-08-14 13:38 | CASEMGMT ---
Discharge Planning Discharge orders, signed med list, covid results, and signed med list sent via [facility] to [facility]. Physicians will transport patient by cot at 3:30p. Nursing, SW, and patient updated. left for his . Tanya Fowler, Discharge Planning Asst.
--- NOTE | 2023-08-14 14:58 | NURSING ---
attempted to contact [facility], but no answer
== END 2023-08-14 16:45 | disposition skilled nursing facility (03) | DRG 640 ==
LOC: ED 18:28 → MS3 20:15
PROVIDERS: Anesthesiology; Internal Medicine; Internal Medicine Gastroenterology; Internal Medicine Nephrology; Admitting Provider Internal Medicine; Emergency Provider Emergency Medicine; PCP Family Medicine; Visit Provider Family Medicine
PROC: 0DJ08ZZ Inspection of Upper Intestinal Tract, Via Natural or Artificial Opening Endoscopic (ICD-10-PCS; CPT 43235; principal; 2023-08-13 07:55)
DX: E87.1 Hypo-osmolality and hyponatremia (principal); K22.11 Ulcer of esophagus with bleeding; K29.61 Other gastritis with bleeding; I13.0 Hypertensive heart and chronic kidney disease with heart failure and stage 1 through stage 4 chronic kidney disease, or unspecified chronic kidney disease; K31.5 Obstruction of duodenum; I50.9 Heart failure, unspecified; D69.6 Thrombocytopenia, unspecified; I95.9 Hypotension, unspecified; G40.909 Epilepsy, unspecified, not intractable, without status epilepticus; J44.9 Chronic obstructive pulmonary disease, unspecified; I77.819 Aortic ectasia, unspecified site; D63.8 Anemia in other chronic diseases classified elsewhere; N18.9 Chronic kidney disease, unspecified; F32.9 Major depressive disorder, single episode, unspecified; G25.81 Restless legs syndrome; E78.5 Hyperlipidemia, unspecified; D50.9 Iron deficiency anemia, unspecified; K57.10 Diverticulosis of small intestine without perforation or abscess without bleeding; K21.00 Gastro-esophageal reflux disease with esophagitis, without bleeding; I34.81 Nonrheumatic mitral (valve) annulus calcification; Z87.891 Personal history of nicotine dependence; N13.9 Obstructive and reflux uropathy, unspecified; Z79.899 Other long term (current) drug therapy; Z79.82 Long term (current) use of aspirin; Z95.0 Presence of cardiac pacemaker; R60.1 Generalized edema; N40.1 Benign prostatic hyperplasia with lower urinary tract symptoms; S82.141D Displaced bicondylar fracture of right tibia, subsequent encounter for closed fracture with routine healing; V89.2XXA Person injured in unspecified motor-vehicle accident, traffic, initial encounter
CPT/HCPCS: 36415; 51702; 76000; 80048; 80053; 81001; 82274; 82436; 82570; 82607; 82728; 82962; 83540; 83550; 83735; 83880; 83930; 83935; 84133; 84300; 84443; 84540; 85014; 85018; 85025; 85610; 85730; 86850; 86900; 86901; 86920; 87426; 88305; 93005; 93306; 94640; 94668; 97110; 97162; 97166; 97530; 97535; 99285; J7030; J7040; J7050; J7120; P9016; Q9957; A4216; C8929; J1940; J2405

== ENCOUNTER → 2023-08-06 | Outpatient (REF) | payer MEDICARE, OTHER, SELFPAY ==
[2023-08-06 06:18] LABS: Absolute Lymphocyte Count 1.83 X10^3/uL (0.83-4.51); Absolute Neutrophil Count 3.3 X10^3/uL (2.0-7.7); Basophil# 0.02 X10^3/uL; Basophil% 0.3 % (0-1); Eosinophil# 0.29 X10^3/uL; Eosinophils% 4.6 % (0-5); Hematocrit 26.9 % (40-54); Hemoglobin 9.2 g/dL (13.0-16.5); Lymphocyte # 1.83 X10^3/ul (0.83-4.51); Mean Corp Hgb Conc 34.2 g/dL (32-36); Mean Corpuscular Hgb 35.4 pg (27.0-32.0); Mean Corpuscular Volume 103.5 fL (80-94); Mean Platelet Vol. 11.1 fl (6.2-12.0); Monocyte# 0.85 X10^3/uL; Monocyte% 13.5 % (0-10); NRBC Flagged by Analyzer 0 % (0-5); Neutrophil # 3.28 X10^3/uL (2.7-7.7); Neutrophil % 52.1 % (47-70); Platelet Count 150 K/mm3 (150-450); RBC Distribution Width CV 14.4 % (11.6-14.6); RBC Distribution Width SD 54.2 fl (35.1-43.9); White Blood Count 6.3 K/mm3 (4.4-11.0)
[2023-08-06 06:44] LABS: Anion Gap 7 (5-15); BUN 19 mg/dL (7-18); BUN/Creat Ratio 17.6 RATIO (10-20); Calcium,Total 8.6 mg/dL (8.5-10.1); Chloride 93 mmol/L (98-107); Creatinine, Serum 1.08 mg/dL (0.70-1.30); EST Glomerular Filtration Rate 70 mL/min (>60); Est Glom Filt Rate - Afr Amer 84 mL/min (>60); Glucose 106 mg/dL (74-106); Potassium 3.9 mmol/L (3.5-5.1); Sodium Level 122 mmol/L (136-145); Thyroid Stim Hormone (TSH) 2.83 uIU/mL (0.358-3.74)
== END ==
LOC: OLS.WHLEAS 05:00
PROVIDERS: PCP Family Medicine; Visit Provider Internal Medicine
DX: R53.82 Chronic fatigue, unspecified (principal); J44.9 Chronic obstructive pulmonary disease, unspecified
CPT/HCPCS: 36415; 80048; 84443; 85025

== ENCOUNTER → 2023-08-18 | Outpatient (REF) | payer MEDICARE, OTHER, SELFPAY ==
[2023-08-18 08:34] LABS: Absolute Lymphocyte Count 1.94 X10^3/uL (0.83-4.51); Absolute Neutrophil Count 3.5 X10^3/uL (2.0-7.7); Basophil# 0.02 X10^3/uL; Basophil% 0.3 % (0-1); Eosinophils% 6.1 % (0-5); Hematocrit 30.9 % (40-54); Hemoglobin 10.4 g/dL (13.0-16.5); Lymphocyte # 1.94 X10^3/ul (0.83-4.51); Lymphocyte % 29.3 % (19-41); Mean Corp Hgb Conc 33.7 g/dL (32-36); Mean Corpuscular Hgb 35.1 pg (27.0-32.0); Mean Corpuscular Volume 104.4 fL (80-94); Mean Platelet Vol. 12.1 fl (6.2-12.0); Monocyte# 0.74 X10^3/uL; Monocyte% 11.2 % (0-10); NRBC Flagged by Analyzer 0 % (0-5); Neutrophil % 52.9 % (47-70); POSITIVE COUNT YES; POSITIVE MORPHOLOGY YES; Platelet Count 74 K/mm3 (150-450); RBC Distribution Width SD 65.1 fl (35.1-43.9); Red Blood Count 2.96 M/mm3 (4.6-6.2); White Blood Count 6.6 K/mm3 (4.4-11.0)
[2023-08-18 09:03] LABS: Differential Comment SCANNED
[2023-08-18 10:19] LABS: Anion Gap 4 (5-15); BUN 13 mg/dL (7-18); BUN/Creat Ratio 13.3 RATIO (10-20); Calcium,Total 8.3 mg/dL (8.5-10.1); Chloride 106 mmol/L (98-107); Creatinine, Serum 0.98 mg/dL (0.70-1.30); EST Glomerular Filtration Rate 78 mL/min (>60); Est Glom Filt Rate - Afr Amer 94 mL/min (>60); Glucose 91 mg/dL (74-106); Sodium Level 135 mmol/L (136-145)
== END ==
LOC: OLS.WHLEAS 05:00
PROVIDERS: PCP Family Medicine; Visit Provider Internal Medicine
DX: R53.82 Chronic fatigue, unspecified (principal); J44.9 Chronic obstructive pulmonary disease, unspecified
CPT/HCPCS: 36415; 80048; 85025

== ENCOUNTER → 2023-08-19 | Outpatient (REF) | payer MEDICARE, OTHER, SELFPAY ==
[2023-08-19 09:20] LABS: Absolute Lymphocyte Count 1.83 X10^3/uL (0.83-4.51); Absolute Neutrophil Count 3.5 X10^3/uL (2.0-7.7); Basophil# 0.02 X10^3/uL; Basophil% 0.3 % (0-1); Eosinophil# 0.48 X10^3/uL; Eosinophils% 7.3 % (0-5); Hematocrit 31.5 % (40-54); Hemoglobin 10.5 g/dL (13.0-16.5); Lymphocyte # 1.83 X10^3/ul (0.83-4.51); Mean Corp Hgb Conc 33.3 g/dL (32-36); Mean Corpuscular Hgb 34.9 pg (27.0-32.0); Mean Corpuscular Volume 104.7 fL (80-94); Mean Platelet Vol. 11.7 fl (6.2-12.0); Monocyte# 0.66 X10^3/uL; Monocyte% 10.1 % (0-10); NRBC Flagged by Analyzer 0 % (0-5); Neutrophil # 3.53 X10^3/uL (2.7-7.7); POSITIVE COUNT YES; POSITIVE MORPHOLOGY YES; RBC Distribution Width CV 16.9 % (11.6-14.6); RBC Distribution Width SD 65.2 fl (35.1-43.9); Red Blood Count 3.01 M/mm3 (4.6-6.2); White Blood Count 6.5 K/mm3 (4.4-11.0)
[2023-08-19 10:03] LABS: Anion Gap 6 (5-15); BUN 12 mg/dL (7-18); BUN/Creat Ratio 10.9 RATIO (10-20); Calcium,Total 8.6 mg/dL (8.5-10.1); Chloride 106 mmol/L (98-107); EST Glomerular Filtration Rate 68 mL/min (>60); Est Glom Filt Rate - Afr Amer 82 mL/min (>60); Glucose 97 mg/dL (74-106); Potassium 3.9 mmol/L (3.5-5.1); Sodium Level 137 mmol/L (136-145)
[2023-08-19 11:21] LABS: Differential Indicated SCAN CRITERIA MET
[2023-08-19 11:22] LABS: Anisocytosis 1+; Platelet Estimate MOD DEC (ADEQ)
== END ==
LOC: OLS.WHLEAS 05:00
PROVIDERS: PCP Family Medicine; Visit Provider Internal Medicine
DX: R53.82 Chronic fatigue, unspecified (principal); J44.9 Chronic obstructive pulmonary disease, unspecified
CPT/HCPCS: 36415; 80048; 85025

== ENCOUNTER → 2023-09-11 | Outpatient (REF) | payer MEDICARE, OTHER, SELFPAY | LOC: OLS.WHLEAS 05:00 | PROVIDERS: PCP Family Medicine; Visit Provider Internal Medicine | DX: E87.6 Hypokalemia (principal) | CPT/HCPCS: 36415; 84132 ==

== ENCOUNTER → 2023-09-17 | Outpatient (CLI) | payer MEDICARE, OTHER, SELFPAY ==
--- NOTE | 2023-09-17 08:15 | RAD_ITS ---
PROCEDURE: Upper GI with Small Bowel Follow Through DATE OF EXAMINATION: September 17, 2023.. INDICATION: Male, 83 years old. Abdominal pain. Possible duodenal stricture. FLUOROSCOPY TIME (if supplied): (1:35) minutes/seconds. 57.36 mGy. 24 fluoroscopic images were obtained. TECHNIQUE: Radiographic and fluoroscopic images of the distal esophagus, stomach, and entire small intestine were obtained following the oral ingestion of barium. Limited study due to the patient''s medical condition. COMPARISON: None. FINDINGS: There is evidence of tertiary contractions in the mid and distal esophagus. No evidence of gastroesophageal reflux. A stent is seen within the distal first portion and second portion of the duodenum. There is no evidence of obstruction. A single contrast small bowel follow through exam demonstrates the small bowel to have no evidence for stricture, ulceration or mass. The transit time is normal at 30 minutes. RAD/Upper GI/w Small Bowel IMPRESSION: Tertiary contractions of the mid and distal esophagus. An endoluminal stent is seen within the second portion of the duodenum. The duodenum is patent. Unremarkable small bowel follow-through examination. Electronically Signed: Bucky Fletcher MD at 8:45 EDT ,
== END | disposition home or self-care (01) ==
LOC: RAD 08:01
PROVIDERS: PCP Family Medicine; Referring Provider Internal Medicine Gastroenterology; Visit Provider Internal Medicine Gastroenterology
DX: R10.9 Unspecified abdominal pain (principal); K31.5 Obstruction of duodenum
CPT/HCPCS: 74246; 74248

== ENCOUNTER → 2023-09-23 | Outpatient (REF) | payer MEDICARE, OTHER, SELFPAY ==
[2023-09-23 08:05] LABS: Absolute Lymphocyte Count 2.36 X10^3/uL (0.83-4.51); Absolute Neutrophil Count 2.8 X10^3/uL (2.0-7.7); Basophil# 0.01 X10^3/uL; Basophil% 0.2 % (0-1); Eosinophil# 0.42 X10^3/uL; Eosinophils% 6.5 % (0-5); Hematocrit 30.1 % (40-54); Hemoglobin 10.3 g/dL (13.0-16.5); Lymphocyte # 2.36 X10^3/ul (0.83-4.51); Lymphocyte % 36.8 % (19-41); Mean Corp Hgb Conc 34.2 g/dL (32-36); Mean Corpuscular Hgb 35.5 pg (27.0-32.0); Mean Corpuscular Volume 103.8 fL (80-94); Mean Platelet Vol. 11.8 fl (6.2-12.0); Monocyte# 0.82 X10^3/uL; Monocyte% 12.8 % (0-10); NRBC Flagged by Analyzer 0 % (0-5); Neutrophil # 2.79 X10^3/uL (2.7-7.7); Neutrophil % 43.4 % (47-70); POSITIVE COUNT YES; Platelet Count 78 K/mm3 (150-450); RBC Distribution Width CV 16.2 % (11.6-14.6); RBC Distribution Width SD 62.4 fl (35.1-43.9); White Blood Count 6.4 K/mm3 (4.4-11.0)
[2023-09-23 08:23] LABS: Anion Gap 6 (5-15); BUN 15 mg/dL (7-18); BUN/Creat Ratio 14.4 RATIO (10-20); Calcium,Total 8.2 mg/dL (8.5-10.1); Chloride 102 mmol/L (98-107); Creatinine, Serum 1.04 mg/dL (0.70-1.30); EST Glomerular Filtration Rate 73 mL/min (>60); Est Glom Filt Rate - Afr Amer 88 mL/min (>60); Glucose 108 mg/dL (74-106); Potassium 3.8 mmol/L (3.5-5.1); Sodium Level 131 mmol/L (136-145)
== END ==
LOC: OLS.WHLEAS 05:00
PROVIDERS: PCP Family Medicine; Visit Provider Internal Medicine
DX: R53.82 Chronic fatigue, unspecified (principal); J44.9 Chronic obstructive pulmonary disease, unspecified
CPT/HCPCS: 36415; 80048; 85025

== ENCOUNTER → 2023-10-14 | Outpatient (REF) | payer MEDICARE, OTHER, SELFPAY ==
[2023-10-14 08:30] LABS: Absolute Lymphocyte Count 2.48 X10^3/uL (0.83-4.51); Absolute Neutrophil Count 2.7 X10^3/uL (2.0-7.7); Basophil# 0.02 X10^3/uL; Basophil% 0.3 % (0-1); Eosinophil# 0.47 X10^3/uL; Eosinophils% 7.3 % (0-5); Hematocrit 27.8 % (40-54); Hemoglobin 9.7 g/dL (13.0-16.5); Lymphocyte # 2.48 X10^3/ul (0.83-4.51); Lymphocyte % 38.8 % (19-41); Mean Corp Hgb Conc 34.9 g/dL (32-36); Mean Corpuscular Hgb 35.9 pg (27.0-32.0); Mean Platelet Vol. 12.6 fl (6.2-12.0); Monocyte# 0.75 X10^3/uL; Monocyte% 11.7 % (0-10); NRBC Flagged by Analyzer 0 % (0-5); Neutrophil # 2.67 X10^3/uL (2.7-7.7); Neutrophil % 41.7 % (47-70); POSITIVE COUNT YES; Platelet Count 74 K/mm3 (150-450); RBC Distribution Width CV 15.5 % (11.6-14.6); RBC Distribution Width SD 57.9 fl (35.1-43.9); White Blood Count 6.4 K/mm3 (4.4-11.0)
[2023-10-14 13:16] LABS: Anion Gap 5 (5-15); BUN 19 mg/dL (7-18); Calcium,Total 8.3 mg/dL (8.5-10.1); Chloride 97 mmol/L (98-107); Creatinine, Serum 0.95 mg/dL (0.70-1.30); EST Glomerular Filtration Rate 81 mL/min (>60); Est Glom Filt Rate - Afr Amer 98 mL/min (>60); Glucose 92 mg/dL (74-106); Potassium 3.7 mmol/L (3.5-5.1); Sodium Level 126 mmol/L (136-145)
== END ==
LOC: OLS.WHLEAS 05:00
PROVIDERS: PCP Family Medicine; Visit Provider Internal Medicine
DX: R53.82 Chronic fatigue, unspecified (principal); J44.9 Chronic obstructive pulmonary disease, unspecified
CPT/HCPCS: 36415; 80048; 85025

== ENCOUNTER → 2023-11-24 | Outpatient (REF) | payer MEDICARE, OTHER, SELFPAY ==
[2023-11-24 08:46] LABS: Absolute Lymphocyte Count 2.31 X10^3/uL (0.83-4.51); Absolute Neutrophil Count 2.3 X10^3/uL (2.0-7.7); Basophil# 0.02 X10^3/uL; Basophil% 0.4 % (0-1); Eosinophil# 0.21 X10^3/uL; Eosinophils% 3.8 % (0-5); Hematocrit 31.6 % (40-54); Lymphocyte # 2.31 X10^3/ul (0.83-4.51); Lymphocyte % 41.5 % (19-41); Mean Corp Hgb Conc 31.6 g/dL (32-36); Mean Corpuscular Hgb 36.4 pg (27.0-32.0); Mean Corpuscular Volume 114.9 fL (80-94); Mean Platelet Vol. 11.1 fl (6.2-12.0); Monocyte# 0.72 X10^3/uL; Monocyte% 12.9 % (0-10); NRBC Flagged by Analyzer 0 % (0-5); Neutrophil # 2.29 X10^3/uL (2.7-7.7); Neutrophil % 41.2 % (47-70); POSITIVE COUNT YES; POSITIVE MORPHOLOGY YES; Platelet Count 83 K/mm3 (150-450); RBC Distribution Width CV 16.2 % (11.6-14.6); RBC Distribution Width SD 68.6 fl (35.1-43.9); Red Blood Count 2.75 M/mm3 (4.6-6.2); White Blood Count 5.6 K/mm3 (4.4-11.0)
[2023-11-24 08:51] LABS: Differential Indicated SCAN CRITERIA MET
[2023-11-24 09:20] LABS: Anisocytosis 1+
[2023-11-24 09:22] LABS: Anion Gap 5 (5-15); BUN 23 mg/dL (7-18); Calcium,Total 8.4 mg/dL (8.5-10.1); Chloride 106 mmol/L (98-107); Creatinine, Serum 0.96 mg/dL (0.70-1.30); EST Glomerular Filtration Rate 80 mL/min (>60); Est Glom Filt Rate - Afr Amer 96 mL/min (>60); Glucose 96 mg/dL (74-106); Sodium Level 138 mmol/L (136-145)
== END ==
LOC: OLS.WHLEAS 05:00
PROVIDERS: PCP Family Medicine; Visit Provider Internal Medicine
DX: R53.82 Chronic fatigue, unspecified (principal); E87.1 Hypo-osmolality and hyponatremia
CPT/HCPCS: 36415; 80048; 85025

== ENCOUNTER → 2023-12-02 | Outpatient (REF) | payer MEDICARE, OTHER, SELFPAY ==
[2023-12-02 08:28] LABS: Absolute Lymphocyte Count 3.57 X10^3/uL (0.83-4.51); Absolute Neutrophil Count 2.8 X10^3/uL (2.0-7.7); Basophil# 0.03 X10^3/uL; Basophil% 0.4 % (0-1); Eosinophil# 0.46 X10^3/uL; Hematocrit 31.3 % (40-54); Hemoglobin 10.6 g/dL (13.0-16.5); Lymphocyte # 3.57 X10^3/ul (0.83-4.51); Lymphocyte % 46.4 % (19-41); Mean Corp Hgb Conc 33.9 g/dL (32-36); Mean Corpuscular Hgb 36.7 pg (27.0-32.0); Mean Corpuscular Volume 108.3 fL (80-94); Mean Platelet Vol. 11.4 fl (6.2-12.0); Monocyte# 0.87 X10^3/uL; Monocyte% 11.3 % (0-10); NRBC Flagged by Analyzer 0 % (0-5); Neutrophil # 2.75 X10^3/uL (2.7-7.7); Neutrophil % 35.6 % (47-70); POSITIVE COUNT YES; Platelet Count 73 K/mm3 (150-450); RBC Distribution Width CV 15.5 % (11.6-14.6); Red Blood Count 2.89 M/mm3 (4.6-6.2); White Blood Count 7.7 K/mm3 (4.4-11.0)
[2023-12-02 09:19] LABS: Anion Gap 7 (5-15); BUN 19 mg/dL (7-18); BUN/Creat Ratio 17.4 RATIO (10-20); Calcium,Total 8.7 mg/dL (8.5-10.1); Chloride 106 mmol/L (98-107); Creatinine, Serum 1.09 mg/dL (0.70-1.30); EST Glomerular Filtration Rate 69 mL/min (>60); Est Glom Filt Rate - Afr Amer 83 mL/min (>60); Glucose 96 mg/dL (74-106); Potassium 4.1 mmol/L (3.5-5.1); Sodium Level 137 mmol/L (136-145)
[2023-12-02 12:47] LABS: Differential Indicated SCAN CRITERIA MET
[2023-12-02 12:48] LABS: Differential Comment SCANNED; Platelet Estimate MOD DEC (ADEQ)
== END ==
LOC: OLS.WHLEAS 05:00
PROVIDERS: PCP Family Medicine; Visit Provider Internal Medicine
DX: R53.82 Chronic fatigue, unspecified (principal)
CPT/HCPCS: 36415; 80048; 85025

== ENCOUNTER → 2023-12-09 | Outpatient (REF) | payer MEDICARE, OTHER, SELFPAY ==
[2023-12-09 08:30] LABS: Absolute Lymphocyte Count 1.92 X10^3/uL (0.83-4.51); Absolute Neutrophil Count 2.2 X10^3/uL (2.0-7.7); Basophil# 0.01 X10^3/uL; Basophil% 0.2 % (0-1); Eosinophil# 0.26 X10^3/uL; Eosinophils% 5.2 % (0-5); Hematocrit 30.1 % (40-54); Lymphocyte # 1.92 X10^3/ul (0.83-4.51); Lymphocyte % 38.3 % (19-41); Mean Corp Hgb Conc 33.2 g/dL (32-36); Mean Corpuscular Hgb 36.8 pg (27.0-32.0); Mean Corpuscular Volume 110.7 fL (80-94); Monocyte# 0.64 X10^3/uL; Monocyte% 12.8 % (0-10); NRBC Flagged by Analyzer 0 % (0-5); Neutrophil # 2.17 X10^3/uL (2.7-7.7); Neutrophil % 43.3 % (47-70); POSITIVE COUNT YES; RBC Distribution Width CV 15.7 % (11.6-14.6); RBC Distribution Width SD 64.4 fl (35.1-43.9); Red Blood Count 2.72 M/mm3 (4.6-6.2)
[2023-12-09 08:39] LABS: Anion Gap 3 (5-15); BUN 19 mg/dL (7-18); Calcium,Total 8.8 mg/dL (8.5-10.1); Chloride 105 mmol/L (98-107); Creatinine, Serum 1.19 mg/dL (0.70-1.30); EST Glomerular Filtration Rate 62 mL/min (>60); Est Glom Filt Rate - Afr Amer 75 mL/min (>60); Glucose 91 mg/dL (74-106); Potassium 3.8 mmol/L (3.5-5.1); Sodium Level 136 mmol/L (136-145)
[2023-12-09 09:03] LABS: Platelet Count 88 K/mm3 (150-450)
[2023-12-09 09:04] LABS: Differential Indicated SCAN CRITERIA MET
[2023-12-09 09:11] LABS: Differential Comment SCANNED; Platelet Estimate MOD DEC (ADEQ); Platelet Morphology CLUMPED
== END ==
LOC: OLS.WHLEAS 05:00
PROVIDERS: PCP Family Medicine; Visit Provider Internal Medicine
DX: R53.82 Chronic fatigue, unspecified (principal); E87.1 Hypo-osmolality and hyponatremia
CPT/HCPCS: 36415; 80048; 85025

== ENCOUNTER → 2023-12-16 | Outpatient (REF) | payer MEDICARE, OTHER, SELFPAY ==
[2023-12-16 09:46] LABS: Absolute Lymphocyte Count 2.75 X10^3/uL (0.83-4.51); Absolute Neutrophil Count 2.1 X10^3/uL (2.0-7.7); Basophil# 0.01 X10^3/uL; Basophil% 0.2 % (0-1); Eosinophil# 0.25 X10^3/uL; Eosinophils% 4.3 % (0-5); Hematocrit 32.8 % (40-54); Hemoglobin 11.1 g/dL (13.0-16.5); Lymphocyte # 2.75 X10^3/ul (0.83-4.51); Lymphocyte % 46.8 % (19-41); Mean Corp Hgb Conc 33.8 g/dL (32-36); Mean Corpuscular Hgb 37.4 pg (27.0-32.0); Mean Corpuscular Volume 110.4 fL (80-94); Mean Platelet Vol. 12.5 fl (6.2-12.0); Monocyte# 0.72 X10^3/uL; Monocyte% 12.2 % (0-10); NRBC Flagged by Analyzer 0 % (0-5); Neutrophil # 2.14 X10^3/uL (2.7-7.7); Neutrophil % 36.3 % (47-70); Platelet Count 110 K/mm3 (150-450); RBC Distribution Width CV 15.9 % (11.6-14.6); Red Blood Count 2.97 M/mm3 (4.6-6.2); White Blood Count 5.9 K/mm3 (4.4-11.0)
[2023-12-16 09:56] LABS: Anion Gap 3 (5-15); BUN 18 mg/dL (7-18); BUN/Creat Ratio 16.7 RATIO (10-20); Calcium,Total 8.8 mg/dL (8.5-10.1); Chloride 105 mmol/L (98-107); Creatinine, Serum 1.08 mg/dL (0.70-1.30); EST Glomerular Filtration Rate 70 mL/min (>60); Est Glom Filt Rate - Afr Amer 84 mL/min (>60); Glucose 108 mg/dL (74-106); Potassium 3.8 mmol/L (3.5-5.1); Sodium Level 137 mmol/L (136-145)
== END ==
LOC: OLS.WHLEAS 05:00
PROVIDERS: PCP Family Medicine; Visit Provider Internal Medicine
DX: R53.82 Chronic fatigue, unspecified (principal)
CPT/HCPCS: 36415; 80048; 85025

== ENCOUNTER → 2023-12-23 | Outpatient (REF) | payer MEDICARE, OTHER, SELFPAY ==
[2023-12-23 08:43] LABS: Anion Gap 8 (5-15); BUN 16 mg/dL (7-18); BUN/Creat Ratio 13.2 RATIO (10-20); Calcium,Total 8.8 mg/dL (8.5-10.1); Chloride 105 mmol/L (98-107); Creatinine, Serum 1.21 mg/dL (0.70-1.30); EST Glomerular Filtration Rate 61 mL/min (>60); Est Glom Filt Rate - Afr Amer 74 mL/min (>60); Glucose 105 mg/dL (74-106); Potassium 4.2 mmol/L (3.5-5.1); Sodium Level 138 mmol/L (136-145)
[2023-12-23 08:48] LABS: Absolute Lymphocyte Count 2.45 X10^3/uL (0.83-4.51); Absolute Neutrophil Count 2.7 X10^3/uL (2.0-7.7); Basophil# 0.02 X10^3/uL; Basophil% 0.3 % (0-1); Eosinophil# 0.19 X10^3/uL; Eosinophils% 3.1 % (0-5); Hematocrit 33.1 % (40-54); Lymphocyte # 2.45 X10^3/ul (0.83-4.51); Mean Corp Hgb Conc 33.2 g/dL (32-36); Mean Corpuscular Hgb 36.5 pg (27.0-32.0); Monocyte# 0.74 X10^3/uL; Monocyte% 12.1 % (0-10); NRBC Flagged by Analyzer 0 % (0-5); Neutrophil # 2.72 X10^3/uL (2.7-7.7); Neutrophil % 44.3 % (47-70); POSITIVE COUNT YES; Platelet Count 98 K/mm3 (150-450); RBC Distribution Width CV 15.5 % (11.6-14.6); RBC Distribution Width SD 62.9 fl (35.1-43.9); Red Blood Count 3.01 M/mm3 (4.6-6.2); White Blood Count 6.1 K/mm3 (4.4-11.0)
[2023-12-23 08:58] LABS: Differential Indicated SCAN CRITERIA MET
[2023-12-23 10:36] LABS: Pathologist Review May foll; Platelet Estimate ADEQUATE (ADEQ)
== END ==
LOC: OLS.WHLEAS 05:00
PROVIDERS: PCP Family Medicine; Visit Provider Internal Medicine
DX: R53.82 Chronic fatigue, unspecified (principal); E87.1 Hypo-osmolality and hyponatremia
CPT/HCPCS: 36415; 80048; 85025

== ENCOUNTER → 2023-12-30 | Outpatient (REF) | payer MEDICARE, OTHER, SELFPAY ==
[2023-12-30 09:10] LABS: Anion Gap 5 (5-15); BUN 19 mg/dL (7-18); BUN/Creat Ratio 16.1 RATIO (10-20); Calcium,Total 8.7 mg/dL (8.5-10.1); Chloride 104 mmol/L (98-107); Creatinine, Serum 1.18 mg/dL (0.70-1.30); EST Glomerular Filtration Rate 63 mL/min (>60); Est Glom Filt Rate - Afr Amer 76 mL/min (>60); Glucose 107 mg/dL (74-106); Potassium 3.9 mmol/L (3.5-5.1); Sodium Level 135 mmol/L (136-145)
[2023-12-30 10:45] LABS: Absolute Lymphocyte Count 2.82 X10^3/uL (0.83-4.51); Absolute Neutrophil Count 3.1 X10^3/uL (2.0-7.7); Basophil# 0.02 X10^3/uL; Basophil% 0.3 % (0-1); Eosinophil# 0.25 X10^3/uL; Eosinophils% 3.6 % (0-5); Hematocrit 33.6 % (40-54); Lymphocyte # 2.82 X10^3/ul (0.83-4.51); Lymphocyte % 40.3 % (19-41); Mean Corp Hgb Conc 32.7 g/dL (32-36); Mean Corpuscular Hgb 35.6 pg (27.0-32.0); Mean Corpuscular Volume 108.7 fL (80-94); Mean Platelet Vol. 10.8 fl (6.2-12.0); Monocyte# 0.84 X10^3/uL; NRBC Flagged by Analyzer 0 % (0-5); Neutrophil # 3.06 X10^3/uL (2.7-7.7); Neutrophil % 43.7 % (47-70); POSITIVE COUNT YES; RBC Distribution Width CV 15.3 % (11.6-14.6); RBC Distribution Width SD 61.3 fl (35.1-43.9); Red Blood Count 3.09 M/mm3 (4.6-6.2)
[2023-12-30 11:25] LABS: Differential Indicated SCAN CRITERIA MET
[2023-12-30 13:20] LABS: Platelet Count 85 K/mm3 (150-450)
== END ==
LOC: OLS.WHLEAS 06:55
PROVIDERS: PCP Family Medicine; Visit Provider Internal Medicine
DX: R53.82 Chronic fatigue, unspecified (principal)
CPT/HCPCS: 36415; 80048; 85025

== ENCOUNTER → 2024-01-02 | Outpatient (REF) | payer MEDICARE, OTHER, SELFPAY ==
[2024-01-02 07:54] LABS: Absolute Lymphocyte Count 2.18 X10^3/uL (0.83-4.51); Absolute Neutrophil Count 2.4 X10^3/uL (2.0-7.7); Basophil# 0.02 X10^3/uL; Basophil% 0.4 % (0-1); Eosinophil# 0.21 X10^3/uL; Eosinophils% 3.7 % (0-5); Hematocrit 29.8 % (40-54); Hemoglobin 10.2 g/dL (13.0-16.5); Lymphocyte # 2.18 X10^3/ul (0.83-4.51); Lymphocyte % 38.8 % (19-41); Mean Corp Hgb Conc 34.2 g/dL (32-36); Mean Platelet Vol. 10.9 fl (6.2-12.0); Monocyte# 0.82 X10^3/uL; Monocyte% 14.6 % (0-10); NRBC Flagged by Analyzer 0 % (0-5); Neutrophil # 2.38 X10^3/uL (2.7-7.7); Neutrophil % 42.3 % (47-70); Platelet Count 104 K/mm3 (150-450); RBC Distribution Width CV 15.2 % (11.6-14.6); RBC Distribution Width SD 60.1 fl (35.1-43.9); Red Blood Count 2.76 M/mm3 (4.6-6.2); White Blood Count 5.6 K/mm3 (4.4-11.0)
== END ==
LOC: OLS.WHLEAS 05:00
PROVIDERS: PCP Family Medicine; Visit Provider Nurse Practitioner Adult Health
DX: D53.1 Other megaloblastic anemias, not elsewhere classified (principal)
CPT/HCPCS: 36415; 85025

== ENCOUNTER 2024-01-16 11:34 | Inpatient (IN) | payer MEDICARE, OTHER, SELFPAY ==
[2024-01-16] VITALS (15 sets, daily range): BP systolic 92–112; BP diastolic 54–70; PULSE 62–70; RESP 14–17; TEMP 36.6–36.8; O2SAT 84–100; BMI 26.8; BMI 25.2
--- NOTE | 2024-01-16 11:52 | RAD_ITS ---
STUDY: X-RAY CHEST REASON FOR EXAM: Male, 83 years old. Cough TECHNIQUE: Single AP portable view of the chest. COMPARISON: None. FINDINGS: Findings suggestive of vascular congestion and CHF with bibasilar atelectasis more prominent at the left lung base. Small bilateral pleural effusions. There is mild cardiac enlargement. 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 Normal mediastinum and samir. Normal visualized pulmonary arteries. Normal visualized aortic arch and descending thoracic aorta. Normal visualized thoracic spine. There is degenerative osteoarthritis of the bilateral shoulders. There is no demonstrated abnormality of the visualized soft tissue structures of the upper abdomen. RAD/Chest 1 View (Portable) IMPRESSION: Findings suggestive of CHF with bilateral pleural effusions and bibasilar atelectasis worse at the left lung base. Electronically Signed: Bucky Fletcher MD at 12:45 EDT ,
--- NOTE | 2024-01-16 11:57 | EDS_ITS ---
HPI <CASEY Richardson - Last Filed: 01/16/24 14:13> History of Present Illness Chief Complaint: Fall Narrative Narrative: Patient is an 83-year-old male that lives at home with his daughter as well as his who presents to the emergency department after mechanical fall yesterday. Patient dates he was working in the garage, when he has 3 steps getting back into the house, he states that his right foot caught the bottom part of the step and he landed on his right and left knee. Patient dates today, he had difficulty walking, he does have severe arthritis. Patient brought in by ambulance is here for pain. Patient states that he has no chest pain shortness of breath, denies any other injury. Does have history of injury to the right knee is currently in a brace. [facility] <CASEY Richardson - Last Filed: 01/16/24 14:13> [facility] Medical History Ulcer of sacral region, stage 2 Anemia Chronic fatigue Major depressive disorder Benign prostate hyperplasia GERD (gastroesophageal reflux disease) Primary osteoarthritis Vitamin deficiency Megaloblastic anemia Chronic kidney disease Hyperlipidemia Heart failure COPD (chronic obstructive pulmonary disease) Displaced fracture of tibia Home Medications ?Medication ?Instructions ?Recorded ?Last Taken ?Type mirtazapine 15 mg tablet 15 mg PO QHS DEPRESSION 08/02/22 01/15/24 History ondansetron HCl 4 mg tablet 4 mg PO Q8H PRN NAUSEA/VOMITING 08/02/22 Unknown History sennosides 8.6 mg-docusate sodium 1 tab-cap PO QHS CONSTIPATION 08/02/22 Unknown History 50 mg capsule (Senna Plus) tamsulosin 0.4 mg capsule 0.4 mg PO DAILY PROSTATE 08/02/22 01/16/24 History ferrous sulfate 325 mg (65 mg 325 mg PO DAILY SUPPLEMENT 08/06/23 01/16/24 History iron) tablet pramipexole 0.5 mg tablet 0.5 mg PO DAILY PARKINSONS 08/06/23 01/16/24 History primidone 50 mg tablet 50 mg PO BID SEIZURES 08/06/23 01/16/24 History sodium chloride 1,000 mg soluble 1,000 mg PO DAILY DEHYDRATION 08/06/23 Unknown History tablet furosemide 40 mg tablet (Lasix) 40 mg PO QODAY Edema #30 tabs 08/14/23 Unknown Rx melatonin 3 mg tablet 3 mg PO QHS PRN PRN Insomnia #0 08/14/23 01/15/24 Rx tabs pantoprazole 40 mg tablet,delayed 40 mg PO DAILY 30 days #30 tabs 08/14/23 01/16/24 Rx release (Protonix) polyethylene glycol 3350 17 gram 17 g PO BID #0 ea 08/14/23 Unknown Rx oral powder packet atorvastatin 80 mg tablet 80 mg PO QHS 12/31/23 01/15/24 History finasteride 5 mg tablet 5 mg PO DAILY 12/31/23 01/16/24 History potassium chloride 20 mEq 20 meq PO DAILY 12/31/23 Unknown History tablet,extended release carvedilol 6.25 mg tablet 6.25 mg PO BID 01/16/24 01/16/24 History dutasteride 0.5 mg capsule 0.5 mg PO DAILY 01/16/24 01/16/24 History fluticasone fur. 200 mcg-umeclid 1 ea inhalation DAILY 01/16/24 01/16/24 History 62.5 mcg-vilant 25 mcg inhalat.powder (Trelegy Ellipta) oxycodone-acetaminophen 5 mg-325 1 tab PO Q6H PRN PRN pain 01/16/24 01/16/24 History mg tablet rosuvastatin 40 mg tablet 40 mg PO DAILY 01/16/24 01/16/24 History Allergy/AdvReac Type Severity Reaction Status Date / Time doxylamine Allergy UNKNOWN Verified 01/16/24 11:38 diphenhydramine (From [employer] AdvReac Unknown unknown Verified 01/16/24 11:38 (diphenhydramine)) Social History Smoking Status: Former smoker ROS <CASEY Richardson - Last Filed: 01/16/24 14:13> ROS ED ROS Narrative Constitutional: Negative for fever, chills, weight loss, weakness Eyes: Negative for vision loss, vision change, double vision ENT: Negative for any sore throat, ear pain, congestion Cardiovascular: Negative for any chest pain, tightness, palpitations Respiratory: Negative for any cough, sputum production, hemoptysis, dyspnea, dyspnea on exertion, orthopnea Gastrointestinal: Negative for any abdominal pain, nausea, vomiting, diarrhea, constipation, blood in stool, blood in vomit : Negative for any urinary frequency, dysuria, retention, blood in urine Muscle skeletal: Negative for any neck pain, back pain. Positive for bilateral knee pain Neurological: Negative for any headache, syncope, dizziness Skin: Negative for any rashes, itching, abrasions, lacerations Psychiatric: Negative for any depression, anxiety, stress, suicidal ideation, homicidal ideation Hematologic: Negative for any excessive bruising, easy bleeding EXAM <CASEY Richardson - Last Filed: 01/16/24 14:13> Physical Exam Narrative Exam Narrative: Vital signs reviewed. HEET: Head normocephalic atraumatic, TMs clear bilaterally. Posterior pharynx is clear, moist mucous membranes. Nares clear bilaterally. Neck: Supple with no lymphadenopathy or tenderness. No signs of meningismus. Cardiac: Regular rate and rhythm no murmurs gallops or rubs, equal peripheral pulses bilaterally. Respiratory: Lungs clear to auscultation bilaterally. No chest tenderness. Abdomen: Soft, nontender, nondistended. No abdominal bruit or pulsatile masses. No hepatosplenomegaly Extremities: Patient does have +2 pitting edema from the feet all the way up j ust below the knee. He states this is chronic. No signs of gross trauma or deformity. Patient has intact extensor mechanism to the bilateral knees, most the pain on the left knee is to the lateral aspect, and behind the knee. Pain on palpation to the patella. Right knee has worsening pain to the medial aspect. As well as on the patella. No obvious signs of deformity. Patient is able to flex and extend both knees. Both lower extremities are edematous. He states this is chronic. Neuro: Cranial nerves II through XII intact, no focal neurological deficits. Skin: Clean dry and intact with no rash, purpura, petechiae, vesicles or pustules. Backs/flank: No CVA tenderness, no midline spinal tenderness, no deformity. Psych: Normal mood and affect. No SI, HI or acute psychosis. Const Vital Signs: 01/16/24 11:38 01/16/24 11:41 01/16/24 12:42 Temperature 98.2 F Temperature Source Oral Pulse Rate 70 Respiratory Rate 16 Respiratory Effort Normal Respiratory Depth Normal Respiratory Pattern Normal Blood Pressure 103/55 L Blood Pressure Mean 71 Pulse Ox 100 94 Oxygen Delivery Method Room Air Room Air 01/16/24 12:45 01/16/24 12:49 01/16/24 13:00 Temperature Temperature Source Pulse Rate Respiratory Rate Respiratory Effort Respiratory Depth Respiratory Pattern Blood Pressure 112/62 112/68 Blood Pressure Mean 78 83 Pulse Ox 98 90 Oxygen Delivery Method 01/16/24 13:15 01/16/24 13:33 01/16/24 13:46 Temperature Temperature Source Pulse Rate Respiratory Rate Respiratory Effort Respiratory Depth Respiratory Pattern Blood Pressure 112/54 L Blood Pressure Mean 73 Pulse Ox 93 84 95 Oxygen Delivery Method 01/16/24 14:00 Temperature Temperature Source Pulse Rate Respiratory Rate Respiratory Effort Respiratory Depth Respiratory Pattern Blood Pressure Blood Pressure Mean Pulse Ox 96 Oxygen Delivery Method <Dr. Chris Gaytan DO - Last Filed: 01/16/24 17:53> Physical Exam Const Vital Signs: 01/16/24 11:38 01/16/24 11:41 01/16/24 12:42 Temperature 98.2 F Temperature Source Oral Pulse Rate 70 Respiratory Rate 16 Respiratory Effort Normal Respiratory Depth Normal Respiratory Pattern Normal Blood Pressure 103/55 L Blood Pressure Mean 71 Pulse Ox 100 94 Oxygen Delivery Method Room Air Room Air 01/16/24 12:45 01/16/24 12:49 01/16/24 13:00 Temperature Temperature Source Pulse Rate Respiratory Rate Respiratory Effort Respiratory Depth Respiratory Pattern Blood Pressure 112/62 112/68 Blood Pressure Mean 78 83 Pulse Ox 98 90 Oxygen Delivery Method 01/16/24 13:15 01/16/24 13:33 01/16/24 13:46 Temperature Temperature Source Pulse Rate Respiratory Rate Respiratory Effort Respiratory Depth Respiratory Pattern Blood Pressure 112/54 L Blood Pressure Mean 73 Pulse Ox 93 84 95 Oxygen Delivery Method 01/16/24 14:00 Temperature Temperature Source Pulse Rate Respiratory Rate Respiratory Effort Respiratory Depth Respiratory Pattern Blood Pressure Blood Pressure Mean Pulse Ox 96 Oxygen Delivery Method MDM <CASEY Richardson - Last Filed: 01/16/24 14:13> MDM Lab Data Labs: Laboratory Results - last 24 hr 01/16/24 12:10 WBC 7.0 RBC 3.12 L Hgb 11.2 L Hct 33.5 L MCV 107.4 H MCH 35.9 H MCHC 33.4 RDW Std Deviation 59.0 H RDW Coeff of Eleanor 14.9 H Plt Count 111 L MPV 12.8 H Immature Gran % (Auto) 0.300 Neut % (Auto) 49.1 Lymph % (Auto) 34.4 [place] % (Auto) 13.8 H Eos % (Auto) 2.1 Baso % (Auto) 0.3 Absolute Neuts (auto) 3.4 Absolute Lymphs (auto) 2.40 Nucleated RBC % 0 Sodium 135 L Potassium 3.9 Chloride 102 Carbon Dioxide 28.0 Anion Gap 5 BUN 17 Creatinine 1.31 H Estim Creat Clear Calc 46.30 Est GFR (MDRD) Af Amer 67 Est GFR (MDRD) Non-Af 56 L BUN/Creatinine Ratio 13.0 Glucose 109 H Calcium 8.7 Magnesium 1.9 B-Natriuretic Peptide 194.6 H Radiography Diagnostic Testing: Clinical Impression(s) from Imaging Studies Chest X-Ray 01/16/24 11:52 IMPRESSION: Findings suggestive of CHF with bilateral pleural effusions and bibasilar atelectasis worse at the left lung base. Electronically Signed: Bucky Fletcher MD at 12:45 EDT , Knee X-Ray 01/16/24 12:06 IMPRESSION: Demineralization of the osseous structures. No acute abnormality is seen. Electronically Signed: Bucky Fletcher MD at 12:43 EDT , Knee X-Ray 01/16/24 12:15 IMPRESSION: I suspect a nondisplaced tibial plateau fracture of the lateral tibial plateau with a small joint effusion. Electronically Signed: Bucky Fletcher MD at 12:43 EDT , Treatment and Re-Evaluation :: Differential diagnosis includes however is not limited to: Patellar fracture, knee contusions, knee sprain, internal derangement, electrolyte abnormality, LIZZY Patient appears to be in no obvious respiratory distress vital signs are stable, patient is nontoxic-appearing. Presenting to the emergency department with complaints of bilateral knee pain after mechanical fall yesterday. Patient will receive x-rays of both knees, all radiologic examinations were read, reviewed by the emergency department attending. From these reads, a plan of care will be put in place. Patient will also receive basic laboratory values, I am concerned for the patient's creatinine secondary to the patient's significant lower leg edema however he does state this is chronic. Patient's laboratory values showed a chronic anemia with a hemoglobin 11.2, chemistries were unremarkable, creatinine was 1.3, slightly elevated. Patient's BNP was elevated 194.6. Patient's x-ray of the right knee does show a suspected nondisplaced tibial plateau fracture of the lateral tibial plateau with a small joint effusion. Secondary to this, I will reach out to Dr. Martinez who is the patient's orthopedic. Patient does have a known injury to this knee. Left knee was unremarkable. Patient's chest x-ray does show finding suggestive of CHF with bilateral pleural effusions and atelectasis mostly in the left lung base. Patient was unable to get up and use the restroom, he is also unable to bear weight. Secondary to the patient's CHF exacerbation, lower leg edema, tibial plateau fracture I do believe the patient would benefit from admission. I did speak with hospitalist to admit the patient. I am going to reach out to o rthopedics to let them know of the fracture of the right knee. Patient is agreeable with the plan, all questions were answered, patient stable for admission. <Dr. Chris Gaytan, DO - Last Filed: 01/16/24 17:53> [facility] Narrative Medical decision making narrative: I have personally performed a face to face assessment of the patient and have reviewed the MIROSLAVA Note. I performed a substantive portion of the visit including all aspects of the following. My arias findings include: History: Patient presents after a fall that occurred today. Patient states he tripped and fell onto his knees. Patient complains of pain in his back and bilateral knees. Patient states the pain is worse with any weightbearing. Patient states he feels weak when he tries to stand. Patient denies any head injury or loss of consciousness. Patient denies any paresthesias or other injuries. Exam: Vital signs are stable. Patient is afebrile. Patient is in no acute distress. Oral mucosa is pink and moist. Neck is supple. Trachea is midline. There is no JVD. Heart was regular rate and rhythm. Lungs are diminished bilaterally. There is adequate respiratory effort. Abdomen is soft. Bowel sounds are normal. There is no tenderness. There is 2-3+ pitting edema of the lower extremities bilaterally to the mid thigh. There is no bony crepitance or step-off noted. Range of motion was limited in all motions of the knees bilaterally secondary to pain. There are no sensory deficits noted. Medical Decision Making: Differential diagnosis includes congestive heart failure, acute kidney injury, generalized weakness, knee fracture, sprain, and electrolyte abnormality. CBC will be obtained to assess for leukocytosis and anemia. Basic metabolic profile will be obtained to assess for electrolyte abnormality and renal function. BNP will be obtained to assess for congestive heart failure. Magnesium level will be obtained to assess for hypomagnesemia. X-rays of the bilateral knees will be obtained to assess for patella fracture. Chest x-ray will be obtained to assess for pneumonia and pneumothorax. X-rays of the right knee were obtained. There are 4 views. On my independent interpretation, there is a questionable tibial plateau fracture. There is a joint effusion noted. Radiologist also interpreted the x-rays and agrees. X- rays of the left knee were obtained. There are 4 views. On my independent interpretation, there is no acute fracture. There is no acute process noted. Radiologist also interpreted the x-rays and agrees. Portable 1 view chest x-ray was obtained. On my independent interpretation, lung coker show evidence of congestive heart failure with bilateral pleural effusions. There is mild cardiomegaly. Bony thorax is normal. Radiologist also interpreted the x-ray and agrees. CBC was reviewed. There is a mild anemia with a hemoglobin of 11.2 and hematocrit 33.5. Platelets were slightly low at 111. Basic metabolic profile was reviewed. Creatinine was slightly elevated at 1.31. The remainder was within normal limits. BNP was reviewed and was mildly elevated at 194.6. Serum magnesium level was reviewed and was normal at 1.9. Patient already has a brace on his right knee. We attempted to ambulate the patient. Patient states he was too weak to ambulate. Because of this, we will admit the patient to the hospital. Case was discussed with the hospitalist. He will admit the patient to his service. Patient understood and was agreeable with the plan. All questions were answered. Lab Data Labs: Laboratory Results - last 24 hr 01/16/24 12:10 WBC 7.0 RBC 3.12 L Hgb 11.2 L Hct 33.5 L MCV 107.4 H MCH 35.9 H MCHC 33.4 RDW Std Deviation 59.0 H RDW Coeff of Eleanor 14.9 H Plt Count 111 L MPV 12.8 H Immature Gran % (Auto) 0.300 Neut % (Auto) 49.1 Lymph % (Auto) 34.4 [place] % (Auto) 13.8 H Eos % (Auto) 2.1 Baso % (Auto) 0.3 Absolute Neuts (auto) 3.4 Absolute Lymphs (auto) 2.40 Nucleated RBC % 0 Sodium 135 L Potassium 3.9 Chloride 102 Carbon Dioxide 28.0 Anion Gap 5 BUN 17 Creatinine 1.31 H Estim Creat Clear Calc 46.30 Est GFR (MDRD) Af Amer 67 Est GFR (MDRD) Non-Af 56 L BUN/Creatinine Ratio 13.0 Glucose 109 H Calcium 8.7 Magnesium 1.9 B-Natriuretic Peptide 194.6 H Radiography Diagnostic Testing: Clinical Impression(s) from Imaging Studies Chest X-Ray 01/16/24 11:52 IMPRESSION: Findings suggestive of CHF with bilateral pleural effusions and bibasilar atelectasis worse at the left lung base. Electronically Signed: Bucky Fletcher MD at 12:45 EDT , Knee X-Ray 01/16/24 12:06 IMPRESSION: Demineralization of the osseous structures. No acute abnormality is seen. Electronically Signed: Bucky Fletcher MD at 12:43 EDT , Knee X-Ray 07/12/24 12:15 IMPRESSION: I suspect a nondisplaced tibial plateau fracture of the lateral tibial plateau with a small joint effusion. Electronically Signed: Bucky Fletcher MD at 12:43 EDT , Discharge Plan Dx/Rx/DC Orders Clinical Impression: Acute exacerbation of CHF (congestive heart failure), Fluid overload, Edema of both lower legs, Bilateral pleural effusion, Closed fracture of tibial plateau, Inability to ambulate due to knee Disposition Disposition: Acute Care Hospital [facility] Discharge Date/Time: 01/16/24 16:54
--- NOTE | 2024-01-16 12:06 | RAD_ITS ---
STUDY: X-RAY - LEFT KNEE REASON FOR EXAM: Male, 83 years old. FALL TECHNIQUE: 4 view(s) of the knee. COMPARISON: None. FINDINGS: There is demineralization of the visualized distal femur. There is demineralization of the tibia and fibula. Normal proximal tibiofibular articulation. Normal medial femorotibial compartment. Normal lateral femorotibial compartment. Normal patellofemoral articulation. There are atherosclerotic calcifications. RAD/Knee 4 or More Views IMPRESSION: Demineralization of the osseous structures. No acute abnormality is seen. Electronically Signed: Bucky Fletcher MD at 12:43 EDT ,
--- NOTE | 2024-01-16 12:15 | RAD_ITS ---
STUDY: X-RAY - RIGHT KNEE REASON FOR EXAM: Male, 83 years old. Bilateral knee pain following a fall. TECHNIQUE: 4 view(s) of the knee. COMPARISON: None. FINDINGS: There is demineralization of the visualized distal femur. I suspect a nondisplaced fracture of the lateral tibial plateau. No significant depression is seen. Normal proximal tibiofibular articulation. Normal medial femorotibial compartment. There is moderate degenerative arthrosis of the lateral femorotibial compartment with moderate joint space narrowing. Normal patellofemoral articulation. Small joint effusion. Diffuse soft tissue swelling. RAD/Knee 4 or More Views IMPRESSION: I suspect a nondisplaced tibial plateau fracture of the lateral tibial plateau with a small joint effusion. Electronically Signed: Bucky Fletcher MD at 12:43 EDT ,
[2024-01-16 12:24] LABS: Absolute Neutrophil Count 3.4 X10^3/uL (2.0-7.7); Basophil# 0.02 X10^3/uL; Basophil% 0.3 % (0-1); Eosinophil# 0.15 X10^3/uL; Eosinophils% 2.1 % (0-5); Hematocrit 33.5 % (40-54); Hemoglobin 11.2 g/dL (13.0-16.5); Lymphocyte % 34.4 % (19-41); Mean Corp Hgb Conc 33.4 g/dL (32-36); Mean Corpuscular Hgb 35.9 pg (27.0-32.0); Mean Corpuscular Volume 107.4 fL (80-94); Mean Platelet Vol. 12.8 fl (6.2-12.0); Monocyte# 0.96 X10^3/uL; Monocyte% 13.8 % (0-10); NRBC Flagged by Analyzer 0 % (0-5); Neutrophil # 3.43 X10^3/uL (2.7-7.7); Neutrophil % 49.1 % (47-70); Platelet Count 111 K/mm3 (150-450); RBC Distribution Width CV 14.9 % (11.6-14.6); Red Blood Count 3.12 M/mm3 (4.6-6.2)
[2024-01-16 12:33] LABS: Anion Gap 5 (5-15); BUN 17 mg/dL (7-18); Calcium,Total 8.7 mg/dL (8.5-10.1); Chloride 102 mmol/L (98-107); Creatinine, Serum 1.31 mg/dL (0.70-1.30); EST Glomerular Filtration Rate 56 mL/min (>60); Est Glom Filt Rate - Afr Amer 67 mL/min (>60); Glucose 109 mg/dL (74-106); Potassium 3.9 mmol/L (3.5-5.1); Sodium Level 135 mmol/L (136-145)
[2024-01-16 13:51] LABS: BNP,B-Type NATRIURETIC PEPTIDE 194.6 pg/mL (0-100)
--- NOTE | 2024-01-16 14:06 | HP.PCM.HOS_ITS ---
HPI - General HPI Narrative RANDAL AGUILAR, is a 83 M who presents [facility] Medical History Anemia Benign prostate hyperplasia Chronic fatigue Chronic kidney disease COPD (chronic obstructive pulmonary disease) Displaced fracture of tibia GERD (gastroesophageal reflux disease) Heart failure Hyperlipidemia Major depressive disorder Megaloblastic anemia Primary osteoarthritis Ulcer of sacral region, stage 2 Vitamin deficiency Home Medications ?Medication ?Instructions ?Recorded ?Last Taken ?Type mirtazapine 15 mg tablet 15 mg PO QHS DEPRESSION 08/02/22 01/15/24 History ondansetron HCl 4 mg tablet 4 mg PO Q8H PRN NAUSEA/VOMITING 08/02/22 Unknown History sennosides 8.6 mg-docusate sodium 1 tab-cap PO QHS CONSTIPATION 08/02/22 Unknown History 50 mg capsule (Senna Plus) tamsulosin 0.4 mg capsule 0.4 mg PO DAILY PROSTATE 08/02/22 01/16/24 History ferrous sulfate 325 mg (65 mg 325 mg PO DAILY SUPPLEMENT 08/06/23 01/16/24 History iron) tablet pramipexole 0.5 mg tablet 0.5 mg PO DAILY PARKINSONS 08/06/23 01/16/24 History primidone 50 mg tablet 50 mg PO BID SEIZURES 08/06/23 01/16/24 History sodium chloride 1,000 mg soluble 1,000 mg PO DAILY DEHYDRATION 08/06/23 Unknown History tablet furosemide 40 mg tablet (Lasix) 40 mg PO QODAY Edema #30 tabs 08/14/23 Unknown Rx melatonin 3 mg tablet 3 mg PO QHS PRN PRN Insomnia #0 08/14/23 01/15/24 Rx tabs pantoprazole 40 mg tablet,delayed 40 mg PO DAILY 30 days #30 tabs 08/14/23 01/16/24 Rx release (Protonix) polyethylene glycol 3350 17 gram 17 g PO BID #0 ea 08/14/23 Unknown Rx oral powder packet atorvastatin 80 mg tablet 80 mg PO QHS 12/31/23 01/15/24 History finasteride 5 mg tablet 5 mg PO DAILY 12/31/23 01/16/24 History potassium chloride 20 mEq 20 meq PO DAILY 12/31/23 Unknown History tablet,extended release carvedilol 6.25 mg tablet 6.25 mg PO BID 01/16/24 01/16/24 History dutasteride 0.5 mg capsule 0.5 mg PO DAILY 01/16/24 01/16/24 History fluticasone fur. 200 mcg-umeclid 1 ea inhalation DAILY 01/16/24 01/16/24 History 62.5 mcg-vilant 25 mcg inhalat.powder (Trelegy Ellipta) oxycodone-acetaminophen 5 mg-325 1 tab PO Q6H PRN PRN pain 01/16/24 01/16/24 History mg tablet rosuvastatin 40 mg tablet 40 mg PO DAILY 01/16/24 01/16/24 History Allergy/AdvReac Type Severity Reaction Status Date / Time doxylamine Allergy UNKNOWN Verified 01/16/24 11:38 diphenhydramine (From [employer] AdvReac Unknown unknown Verified 01/16/24 11:38 (diphenhydramine)) Social History Smoking Status: Former smoker Vital Signs Vital Signs Vital Signs: 01/16/24 11:38 01/16/24 11:41 Temperature 98.2 F Temperature Source Oral Pulse Rate 70 Respiratory Rate 16 Respiratory Effort Normal Respiratory Depth Normal Respiratory Pattern Normal Blood Pressure 103/55 L Blood Pressure Mean 71 Pulse Ox 100 Oxygen Delivery Method Room Air Room Air Weight Weight: 192 lb 3.889 oz Body Mass Index (BMI) 26.8 Results Lab / Micro Data 01/16/24 12:10 01/16/24 12:10 Labs: Laboratory Results - last 24 hr 01/16/24 12:10: WBC 7.0, RBC 3.12 L, Hgb 11.2 L, Hct 33.5 L, MCV 107.4 H, MCH 35.9 H, MCHC 33.4, RDW Std Deviation 59.0 H, RDW Coeff of Eleanor 14.9 H, Plt Count 111 L, MPV 12.8 H, Immature Gran % (Auto) 0.300, Neut % (Auto) 49.1, Lymph % (Auto) 34.4, [place] % (Auto) 13.8 H, Eos % (Auto) 2.1, Baso % (Auto) 0.3, Absolute Neuts (auto) 3.4, Absolute Lymphs (auto) 2.40, Nucleated RBC % 0, Sodium 135 L, Potassium 3.9, Chloride 102, Carbon Dioxide 28.0, Anion Gap 5, BUN 17, C reatinine 1.31 H, Estim Creat Clear Calc 46.30, Est GFR (MDRD) Af Amer 67, Est GFR (MDRD) Non-Af 56 L, BUN/Creatinine Ratio 13.0, Glucose 109 H, Calcium 8.7, B -Natriuretic Peptide 194.6 H Imaging Radiology Impression Chest X-Ray 01/16/24 11:52 IMPRESSION: Findings suggestive of CHF with bilateral pleural effusions and bibasilar atelectasis worse at the left lung base. Electronically Signed: Bucky Fletcher MD at 12:45 EDT , Knee X-Ray 01/16/24 12:06 IMPRESSION: Demineralization of the osseous structures. No acute abnormality is seen. Electronically Signed: Bucky Fletcher MD at 12:43 EDT , Knee X-Ray 01/16/24 12:15 IMPRESSION: I suspect a nondisplaced tibial plateau fracture of the lateral tibial plateau with a small joint effusion. Electronically Signed: Bucky Fletcher MD at 12:43 EDT ,
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
[2024-01-16] MEDS: Furosemide 40 MG/4 ML Vial IV (14:18)
[2024-01-16 15:03] LABS: Magnesium 1.9 mg/dL (1.6-2.6)
[2024-01-16] MEDS: oxyCODONE 5 MG Tablet PO (17:31)
[2024-01-16] MEDS: Enoxaparin 40 MG/0.4 ML Syringe SC (18:20)
[2024-01-16] MEDS: Acetaminophen 500 MG Tablet 1000 MG PO (18:21)
[2024-01-16] MEDS: Atorvastatin Calcium 80 MG Tablet PO (20:52)
[2024-01-16] MEDS: Primidone 50 MG Tablet PO (20:55)
[2024-01-16] MEDS: Budesonide Respules 0.5 MG/2 ML AMPUL.NEB. INHALATION (21:00)
[2024-01-16] MEDS: Ipratropium/Albuterol Sulfate 3 ML AMPUL.NEB INHALATION (21:00)
[2024-01-17] VITALS (7 sets, daily range): BP systolic 97–119; BP diastolic 53–68; PULSE 66–84; RESP 15–18; TEMP 36.2–36.6; O2SAT 92–98; BMI 26.2
[2024-01-17 05:58] LABS: Absolute Lymphocyte Count 1.88 X10^3/uL (0.83-4.51); Absolute Neutrophil Count 2.1 X10^3/uL (2.0-7.7); Basophil# 0.02 X10^3/uL; Basophil% 0.4 % (0-1); Eosinophil# 0.24 X10^3/uL; Eosinophils% 4.9 % (0-5); Hematocrit 30.8 % (40-54); Hemoglobin 10.3 g/dL (13.0-16.5); Lymphocyte # 1.88 X10^3/ul (0.83-4.51); Lymphocyte % 38.1 % (19-41); Mean Corp Hgb Conc 33.4 g/dL (32-36); Mean Corpuscular Hgb 35.8 pg (27.0-32.0); Mean Corpuscular Volume 106.9 fL (80-94); Mean Platelet Vol. 11.9 fl (6.2-12.0); Monocyte% 14.2 % (0-10); NRBC Flagged by Analyzer 0 % (0-5); Neutrophil # 2.09 X10^3/uL (2.7-7.7); Neutrophil % 42.2 % (47-70); POSITIVE COUNT YES; Platelet Count 104 K/mm3 (150-450); RBC Distribution Width CV 14.8 % (11.6-14.6); RBC Distribution Width SD 58.2 fl (35.1-43.9); Red Blood Count 2.88 M/mm3 (4.6-6.2); White Blood Count 4.9 K/mm3 (4.4-11.0)
[2024-01-17 06:48] LABS: Anion Gap 6 (5-15); BUN 17 mg/dL (7-18); BUN/Creat Ratio 12.7 RATIO (10-20); Calcium,Total 8.3 mg/dL (8.5-10.1); Chloride 102 mmol/L (98-107); Cholesterol 70 mg/dL (200); Creatinine, Serum 1.34 mg/dL (0.70-1.30); EST Glomerular Filtration Rate 54 mL/min (>60); Est Glom Filt Rate - Afr Amer 66 mL/min (>60); Estimated Creatinine Clearance 45.27 ml/min; Glucose 96 mg/dL (74-106); High Density Lipoprotein 39 mg/dL; Potassium 3.3 mmol/L (3.5-5.1); Sodium Level 136 mmol/L (136-145); Triglycerides 57 mg/dL; Very Low Density Lipoprotein 11 mg/dL (5-40)
[2024-01-17 06:51] LABS: Differential Indicated SCAN CRITERIA MET
[2024-01-17] MEDS: Ipratropium/Albuterol Sulfate 3 ML AMPUL.NEB INHALATION ×2 (07:15→20:34)
[2024-01-17] MEDS: Budesonide Respules 0.5 MG/2 ML AMPUL.NEB. INHALATION ×2 (07:16→20:34)
[2024-01-17] MEDS: Potassium Chloride Oral Tablet 20 MEQ PO (08:18)
[2024-01-17] MEDS: Ferrous Sulfate 325 MG Tablet PO (08:19)
[2024-01-17] MEDS: oxyCODONE 5 MG Tablet PO ×3 (08:20→21:06)
[2024-01-17] MEDS: Potassium Chloride Oral Tablet 20 MEQ 40 MEQ PO (10:05)
[2024-01-17] MEDS: Pantoprazole Sodium 40 MG Tablet PO (10:06)
[2024-01-17] MEDS: Finasteride 5 MG Tablet PO (10:06)
[2024-01-17] MEDS: Pramipexole Di-HCl 0.5 MG Tablet PO (10:07)
[2024-01-17] MEDS: Enoxaparin 40 MG/0.4 ML Syringe SC (10:07)
[2024-01-17] MEDS: Tamsulosin HCl 0.4 MG Capsule PO (10:08)
[2024-01-17] MEDS: Primidone 50 MG Tablet PO ×2 (10:09→21:06)
[2024-01-17] MEDS: 0.9% Saline Lock 10 ML Syringe IV (10:10)
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
[2024-01-17] MEDS: Atorvastatin Calcium 80 MG Tablet PO (21:06)
[2024-01-17] MEDS: Carvedilol 6.25 MG Tablet PO (21:06)
[2024-01-17] MEDS: MELATONIN 3 MG TABLET PO (22:54)
[2024-01-18] MEDS: oxyCODONE 5 MG Tablet PO ×2 (02:28→09:00)
[2024-01-18 02:29] VITALS: BP 98/58; PULSE 69; RESP 16; TEMP 36.5; O2SAT 97
[2024-01-18 03:16] VITALS: BMI 26.2
[2024-01-18 05:44] VITALS: BP 99/87; PULSE 65; RESP 18; TEMP 36.8; O2SAT 97
[2024-01-18 06:17] LABS: Anion Gap 6 (5-15); BUN 22 mg/dL (7-18); BUN/Creat Ratio 16.9 RATIO (10-20); Calcium,Total 8.3 mg/dL (8.5-10.1); Chloride 103 mmol/L (98-107); EST Glomerular Filtration Rate 56 mL/min (>60); Est Glom Filt Rate - Afr Amer 68 mL/min (>60); Estimated Creatinine Clearance 46.66 ml/min; Glucose 108 mg/dL (74-106); Potassium 3.9 mmol/L (3.5-5.1); Sodium Level 136 mmol/L (136-145)
[2024-01-18 11:44] VITALS: BP 104/65; PULSE 67; RESP 18; TEMP 36.1; O2SAT 96
[2024-01-18] MEDS: Ferrous Sulfate 325 MG Tablet PO (11:46)
[2024-01-18] MEDS: Furosemide 20 MG Tablet PO (11:48)
[2024-01-18] MEDS: Tamsulosin HCl 0.4 MG Capsule PO (11:48)
[2024-01-18] MEDS: Finasteride 5 MG Tablet PO (11:49)
[2024-01-18] MEDS: Carvedilol 6.25 MG Tablet PO ×2 (11:49→19:57)
[2024-01-18] MEDS: Primidone 50 MG Tablet PO ×2 (11:49→19:57)
[2024-01-18] MEDS: Pantoprazole Sodium 40 MG Tablet PO (11:49)
[2024-01-18] MEDS: Enoxaparin 40 MG/0.4 ML Syringe SC (11:49)
[2024-01-18] MEDS: Pramipexole Di-HCl 0.5 MG Tablet PO (11:51)
[2024-01-18] MEDS: Potassium Chloride Oral Tablet 20 MEQ PO (11:54)
[2024-01-18] MEDS: 0.9% Saline Lock 10 ML Syringe IV (11:55)
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
[2024-01-18 14:00] VITALS: BP 98/64; PULSE 64; RESP 18; TEMP 36.4; O2SAT 99
--- NOTE | 2024-01-18 16:44 | NURSING ---
[id number] Pt refusing to wear Left kamran warp from ankle to knee. Educated patient. Pt still refused. Put on patients black knee high sock. Will continue to monitor and educate.
[2024-01-18] MEDS: Atorvastatin Calcium 80 MG Tablet PO (19:57)
[2024-01-18 20:00] VITALS: BP 104/54; PULSE 71; RESP 18; TEMP 36.4; O2SAT 98
[2024-01-19 02:00] VITALS: BP 99/57; PULSE 66; RESP 19; TEMP 36.6; O2SAT 94
[2024-01-19 08:23] VITALS: BP 107/52; PULSE 71; RESP 18; TEMP 36.3; O2SAT 95
[2024-01-19] MEDS: Pramipexole Di-HCl 0.5 MG Tablet PO (08:38)
[2024-01-19] MEDS: Pantoprazole Sodium 40 MG Tablet PO (08:38)
[2024-01-19] MEDS: oxyCODONE 5 MG Tablet PO ×2 (08:38→14:43)
[2024-01-19] MEDS: Ferrous Sulfate 325 MG Tablet PO (08:39)
[2024-01-19] MEDS: Carvedilol 6.25 MG Tablet PO ×2 (08:39→21:55)
[2024-01-19] MEDS: Primidone 50 MG Tablet PO ×2 (08:39→21:56)
[2024-01-19] MEDS: Tamsulosin HCl 0.4 MG Capsule PO (08:39)
[2024-01-19] MEDS: Furosemide 20 MG Tablet PO (08:39)
[2024-01-19] MEDS: Finasteride 5 MG Tablet PO (08:40)
[2024-01-19] MEDS: Enoxaparin 40 MG/0.4 ML Syringe SC (08:41)
[2024-01-19] MEDS: Potassium Chloride Oral Tablet 20 MEQ PO (08:44)
--- NOTE | 2024-01-19 08:56 | CASEMGMT ---
MARCIO sent updates to [place] [facility] [place]. Still awaiting response. Scarlet Brooke STUMP BLOWER DEPARTMENT CLERK
--- NOTE | 2024-01-19 14:22 | CASEMGMT ---
SW let patient know that [facility] has not responded regarding his referral. SW let patient know as soon as SW hears something SW will let him know. Scarlet Brooke FIBRE TECHNOLOGIST ADE
[2024-01-19 14:40] VITALS: BP 104/57; PULSE 66; RESP 16; TEMP 36.7; O2SAT 97
[2024-01-19] MEDS: 0.9% Saline Lock 10 ML Syringe IV (14:43)
--- NOTE | 2024-01-19 16:20 | CHAPLAIN ---
Type of Pastoral Visit _x__ Initial Visit ___ Follow-up Visit ___ On-call Visit ___ General Patient Visit ___ Spiritual Assessment ___ Family Conference ___ Bereavement ___ Rapid Response ___ Code Blue ___ Other (describe below) Pastoral Care Referral From _x__ Patient ___ Family ___ Nurse ___ Physician ___ Telecommunications Specialist ___ Horser Up ___ Other (describe below) Sacrament/Intervention _x__ Active listening ___ Anointing ___ Scientology ___ Bereavement ___ Communion _x__ Monik exploration ___ _x__ Life review _x__ Prayer ___ Reconciliation ___ Sacrament of Sick _x__ Supportive presence ___ Wedding ___ Other (describe below) Pastoral Comments patient is very welcoming and despite the discomfort of his leg he presents himself with positive attitude and outlook; pt gives some life review and speaks of near and 'rescue from God to spare his life' and of 'seeing little clouds of heaven/angels appear'; pt acknowledges that this experience from potential suicide to being spared miraculously has changed his whole life and perspective; pt identifies as a person of monik who knows that God is real and that He can be trusted for help; pt is welcoming of presence and prayer for support
--- NOTE | 2024-01-19 18:14 | PN.HOSP_ITS ---
Reason for Visit Reason for Visit: Diagnoses Heart failure, unspecified (01/16/24) Difficulty in walking, not elsewhere classified (01/16/24) Displaced bicondylar fracture of unspecified tibia, initial encounter for closed fracture (01/16/24) Subjective Subjective Not having any significant pain currently doing better overall Objective Data Objective Data Vital Signs: Vital Signs Temp Pulse Resp BP Pulse Ox O2 Del Method 98.1 F 66 16 104/57 L 97 Room Air 01/19/24 14:40 01/19/24 14:40 01/19/24 14:40 01/19/24 14:40 01/19/24 14:40 01/19/24 14:40 Oxygen Delivery Method Room Air Weight: 85.4 kg Body Mass Index (BMI) 26.2 Intake & Output: Intake and Output for Last 24 Hours 01/17/24 01/18/24 01/19/24 23:59 23:59 23:59 Intake Total 1640 / 1640 980 / 980 400 / 400 Output Total 2550 / 2550 1475 / 1675 500 / 500 Balance -910 / -910 -495 / -695 -100 / -100 Lab / Micro Data 01/17/24 05:18 01/18/24 05:27 Physical Exam Narrative General: Alert, oriented, no apparent distress HEENT: Atraumatic, normocephalic Eyes: Anicteric, normal conjunctiva, extraocular movements grossly intact Neck: Supple Respiratory: Clear to auscultation bilaterally, normal respiratory effort Cardiovascular: Regular rate and rhythm GI: Soft, nontender, nondistended Extremities: No edema Musculoskeletal: Moving all extremities Neuro: No overt focal neurological deficits Skin: No rashes appreciated Psych: Cooperative Assessment & Plan Assessment/Plan (1) Closed fracture of tibial plateau: (2) Inability to ambulate due to knee: (3) Acute exacerbation of CHF (congestive heart failure): PLAN: Plan # Right knee nondisplaced tibial plateau fracture with small joint effusion -Ortho evaluated and no op requirement at this time -PT/OT/case management -Patient will need rehab on discharge -Pain control # Mild heart failure with preserved ejection fraction exacerbation/history of sick sinus syndrome status post pacemaker placement -Last echo in 08/2023 showed EF 50%, no other significant abnormalities -Had IV diuresis on presentation, has been de-escalated to 20 mg p.o. and this will be continued on discharge -Cont BB #Chronic BPH with obstruction -Continue home medications # Tremors -Continue primidone # CKD stage III a -Appears to be at baseline -Avoid nephrotoxic agents #Chronic duodenal stenosis with erosive esophagitis- chronic -Follows with Dr. Mccartyh, last office visit on 12/30. Noted on EGD in August to have nonsevere erosive esophagitis with acquired duodenal stenosis, underwent balloon dilation and duodenal stent placement - Planning for repeat EGD with stent replacement or removal in the near future. Denies any symptoms currently. Continue home PPI #DVT ppx: Lovenox subcu Lianne Paris MD Time spent in the patient's overall evaluation,decision-making process, review of diagnostic data, adjustment of management, discussion with other providers, nursing nursing and ancillary staff involved in patient's care documentation, 30 minutes Charges/Coding Visit Charges Inpatient E&M: 59177 [facility] Hosp L1
[2024-01-19] MEDS: Budesonide Respules 0.5 MG/2 ML AMPUL.NEB. INHALATION (19:28)
[2024-01-19] MEDS: Ipratropium/Albuterol Sulfate 3 ML AMPUL.NEB INHALATION (19:28)
[2024-01-19 19:29] VITALS: PULSE 70; RESP 18
[2024-01-19 21:53] VITALS: BP 106/57; PULSE 70; RESP 18; TEMP 36.7; O2SAT 95
[2024-01-19] MEDS: Atorvastatin Calcium 80 MG Tablet PO (21:54)
[2024-01-20] VITALS (8 sets, daily range): BP systolic 95–120; BP diastolic 60–65; PULSE 66–72; RESP 16–18; TEMP 36.7–36.8; O2SAT 93–96; BMI 26.3
[2024-01-20] MEDS: Budesonide Respules 0.5 MG/2 ML AMPUL.NEB. INHALATION ×2 (07:31→19:55)
[2024-01-20] MEDS: Ipratropium/Albuterol Sulfate 3 ML AMPUL.NEB INHALATION ×3 (07:31→19:54)
[2024-01-20] MEDS: Pantoprazole Sodium 40 MG Tablet PO (09:21)
[2024-01-20] MEDS: Potassium Chloride Oral Tablet 20 MEQ PO (09:22)
[2024-01-20] MEDS: Carvedilol 6.25 MG Tablet PO ×2 (09:22→22:21)
[2024-01-20] MEDS: Tamsulosin HCl 0.4 MG Capsule PO (09:22)
[2024-01-20] MEDS: Ferrous Sulfate 325 MG Tablet PO (09:22)
[2024-01-20] MEDS: Furosemide 20 MG Tablet PO (09:22)
[2024-01-20] MEDS: Enoxaparin 40 MG/0.4 ML Syringe SC (09:23)
[2024-01-20] MEDS: Finasteride 5 MG Tablet PO (09:23)
[2024-01-20] MEDS: Primidone 50 MG Tablet PO ×2 (09:24→22:21)
[2024-01-20] MEDS: Pramipexole Di-HCl 0.5 MG Tablet PO (09:24)
--- NOTE | 2024-01-20 09:40 | CASEMGMT ---
SW spoke with Jarrett at [facility] and patient has used all 100 of his skilled Medicare days. Patient would be private pay. SW spoke with patient and let him know above. Patient stated he cannot afford to private pay. SW mentioned Acute Rehab Unit as it is billed like a hospital stay not a SNF. Patient was interested in Acute Rehab if it would be covered by insurance. Patient declined a list of Rehab facilities as he would not want to go to [facility] etc. SW asked Jannie to review patient's chart. Scarlet BOOKER
--- NOTE | 2024-01-20 10:45 | CASEMGMT ---
Patient was not accepted in the Acute Rehab Unit. SW notified physician and CM and patient will have to return home with home health as patient cannot afford to private pay at a care home. SW will notify patient. Scarlet BOOKER
--- NOTE | 2024-01-20 11:07 | CASEMGMT ---
SW let patient know that Acute Rehab cannot take patient. SW asked patient if he feels like he will be okay going home with home health. Patient said that would be fine. Patient was not sure if [facility] set him up with home health or not. Patient said he would check with his daughter. SW will check back. Scarlet BOOKER
--- NOTE | 2024-01-20 12:32 | CASEMGMT ---
Social Work Pt confirms daughter Sana is healthcare POA, will ask her to bring in the documents. BRENDON Mulligan
--- NOTE | 2024-01-20 13:50 | CASEMGMT ---
MARCIO received a call from patient's daughter Sana Roberts. Sana said her dad mentioned something about rehab and home. MARCIO explained that patient has used all of his Medicare days. This means that no matter which usp patient would go to he would have to private pay. MARCIO then explained the two units [facility] has TCU and Rehab. MARCIO explained the differences. MARCIO also explained Rehab has declined patient, however therapy is going to work with patient today and let us know if they feel he could do 3 hours. Should therapy feel patient could do 3 hours SW could ask the physician to re-consider patient. MARCIO explained if patient cannot do 3 hours then his options would be home with home health or private pay. Sana said she and patient's will be in today around 430/5p. Scarlet BOOKER
[2024-01-20] MEDS: oxyCODONE 5 MG Tablet PO (14:18)
--- NOTE | 2024-01-20 15:32 | CASEMGMT ---
Acute Rehab will accept patient. SW notified RN and physician. SW also spoke with patient. SW reminded patient that the therapy is 3 hours a day which is broken up throughout the whole day. SW also let patient know that it is important he participate in therapy and he will not be able to refuse therapy. SW also provided patient with a pamphlet for [facility] Acute Rehab. Plan: [facility] Acute Rehab Unit. Scarlet BOOKER
--- NOTE | 2024-01-20 16:48 | PCM.PN.HOSP ---
Reason for Visit Reason for Visit: Diagnoses Heart failure, unspecified (01/16/24) Difficulty in walking, not elsewhere classified (01/16/24) Displaced bicondylar fracture of unspecified tibia, initial encounter for closed fracture (01/16/24) Subjective Subjective Still weak but motivated for rehab, no other acute complaints aside from feeling that kamran wraps bother his legs some Objective Data Objective Data Vital Signs: Vital Signs Temp Pulse Resp BP Pulse Ox O2 Del Method 98.1 F 72 16 110/65 96 Room Air 01/20/24 15:52 01/20/24 15:52 01/20/24 15:52 01/20/24 15:52 01/20/24 15:52 01/20/24 15:52 Oxygen Delivery Method Room Air Weight: 85.7 kg Body Mass Index (BMI) 26.3 Intake & Output: Intake and Output for Last 24 Hours 01/18/24 01/19/24 01/20/24 23:59 23:59 23:59 Intake Total 980 / 980 400 / 400 360 / 360 Output Total 1475 / 1675 800 / 800 700 / 700 Balance -495 / -695 -400 / -400 -340 / -340 Lab / Micro Data 01/17/24 05:18 01/18/24 05:27 Physical Exam Narrative General: Alert, oriented, no apparent distress HEENT: Atraumatic, normocephalic Eyes: Anicteric, normal conjunctiva, extraocular movements grossly intact Neck: Supple Respiratory: Clear to auscultation bilaterally, normal respiratory effort Cardiovascular: Regular rate and rhythm GI: Soft, nontender, nondistended Extremities: No edema Musculoskeletal: Moving all extremities Neuro: No overt focal neurological deficits Skin: No rashes appreciated Psych: Cooperative Assessment & Plan Assessment/Plan (1) Closed fracture of tibial plateau: (2) Inability to ambulate due to knee: (3) Acute exacerbation of CHF (congestive heart failure): PLAN: Plan # Right knee nondisplaced tibial plateau fracture with small joint effusion -Ortho evaluated and no op requirement at this time -PT/OT/case management -Patient will need rehab on discharge -Pain control -01/19: Patient worked well with physical therapy today and they do feel like he will be able to do 3 hours of rehab and inpatient med rehab, patient to go to med rehab tomorrow # Mild heart failure with preserved ejection fraction exacerbation/history of sick sinus syndrome status post pacemaker placement -Last echo in 08/2023 showed EF 50%, no other significant abnormalities -Had IV diuresis on presentation, has been de-escalated to 20 mg p.o. and this will be continued on discharge -Cont BB -01/19: Patient stable, will DC on p.o. diuresis Chronic issues: #Chronic BPH with obstruction -Continue home medications # Tremors -Continue primidone # CKD stage III a -Appears to be at baseline -Avoid nephrotoxic agents #Chronic duodenal stenosis with erosive esophagitis -Follows with Dr. Mccarthy, last office visit on 12/30. Noted on EGD in August to have nonsevere erosive esophagitis with acquired duodenal stenosis, underwent balloon dilation and duodenal stent placement - Planning for repeat EGD with stent replacement or removal in the near future. Denies any symptoms currently. Continue home PPI #DVT ppx: Lovenox subcu Lianne Paris MD Time spent in the patient's overall evaluation,decision-making process, review of diagnostic data, adjustment of management, discussion with other providers, nursing nursing and ancillary staff involved in patient's care documentation, 36 minutes Charges/Coding Visit Charges Inpatient E&M: 69111 Subs Hosp L2
[2024-01-20] MEDS: Polyethylene Glycol 3350 17 GM PACKET PO (22:20)
[2024-01-20] MEDS: Atorvastatin Calcium 80 MG Tablet PO (22:22)
[2024-01-21] VITALS (9 sets, daily range): BP systolic 97–117; BP diastolic 55–72; PULSE 67–75; RESP 16–20; TEMP 36.6–36.9; O2SAT 94–99; BMI 25.2
[2024-01-21] MEDS: Ipratropium/Albuterol Sulfate 3 ML AMPUL.NEB INHALATION ×3 (02:45→13:27)
[2024-01-21] MEDS: Budesonide Respules 0.5 MG/2 ML AMPUL.NEB. INHALATION (07:23)
[2024-01-21] MEDS: Finasteride 5 MG Tablet PO (08:48)
[2024-01-21] MEDS: Tamsulosin HCl 0.4 MG Capsule PO (08:48)
[2024-01-21] MEDS: Pramipexole Di-HCl 0.5 MG Tablet PO (08:48)
[2024-01-21] MEDS: Primidone 50 MG Tablet PO (08:48)
[2024-01-21] MEDS: Ferrous Sulfate 325 MG Tablet PO (08:49)
[2024-01-21] MEDS: Enoxaparin 40 MG/0.4 ML Syringe SC (08:49)
[2024-01-21] MEDS: Pantoprazole Sodium 40 MG Tablet PO (08:49)
[2024-01-21] MEDS: Potassium Chloride Oral Tablet 20 MEQ PO (08:49)
--- NOTE | 2024-01-21 10:08 | DCINST_ITS ---
Discharge Instructions Diet Discharge Diet: - (Heart healthy) Activity Discharge Activity: - (Discharge to med rehab) Follow Up Care Test Results: Test results from this visit will be discussed in further detail at your follow- up appointment, if applicable. Discharge Plan Admission Admit Date/Time: 01/16/24 14:04 Primary Reason for Your Visit: Fall and knee pain Attending Provider: Lianne Paris Primary Care Provider: Casey Martinez Consulting Providers: Javan Martinez; Kyle Vick; Raymond Pfeiffer Instructions Patient Instructions: ED Fall Prevention Additional Instructions / Restrictions: DISCHARGE INSTRUCTIONS PLEASE READ *Please take this with you to your next doctors appointment* -Your lasix have been changed to 20mg daily -Due to slightly lower blood pressures your Coreg was stopped and was transition to metoprolol -Please keep your previously scheduled follow-up appoint with Dr. Martinez if possible -Please call your primary care provider's office upon discharge to schedule a hospital follow up within 1 week. -For any concerning signs or symptoms please call 911 or proceed to the nearest emergency department Discharge Orders/Prescriptions Prescriptions: New acetaminophen 500 mg Tablet 1,000 mg PO Q8 Qty: 0 0RF furosemide 20 mg Tablet 20 mg PO DAILY Qty: 0 0RF metoprolol succinate 25 mg Tablet Extended Release 24 Hr 12.5 mg PO DAILY Qty: 0 0RF Continued ondansetron HCl 4 mg tablet 4 mg PO Q8H PRN (Reason: NAUSEA/VOMITING ) Senna Plus 8.6-50 mg capsule 1 tab-cap PO QHS tamsulosin 0.4 mg capsule 0.4 mg PO DAILY atorvastatin 80 mg tablet 80 mg PO QHS finasteride 5 mg tablet 5 mg PO DAILY potassium chloride 20 mEq tablet extended release 20 meq PO DAILY ferrous sulfate 325 mg (65 mg iron) tablet 325 mg PO DAILY pramipexole 0.5 mg tablet 0.5 mg PO DAILY primidone 50 mg tablet 50 mg PO BID polyethylene glycol 3350 17 gram Powder In Packet 17 g PO BID Qty: 0 0RF melatonin 3 mg Tablet 3 mg PO QHS PRN PRN (Reason: Insomnia) Qty: 0 0RF pantoprazole [Protonix] 40 mg tablet,delayed release (DR/EC) 40 mg PO DAILY 30 Days Qty: 30 0RF dutasteride 0.5 mg capsule 0.5 mg PO DAILY Trelegy Ellipta 200-62.5-25 mcg blister with device 1 ea inhalation DAILY Discontinued mirtazapine 15 mg tablet 15 mg PO QHS sodium chloride 1,000 mg tablet,soluble 1,000 mg PO DAILY furosemide [Lasix] 40 mg tablet 40 mg PO QODAY Qty: 30 0RF Rx Instructions: Hold for SBP < 100, may frequently not be administered pending BP trending. May update Dr. Yip if not able to given at all. carvedilol 6.25 mg tablet 6.25 mg PO BID rosuvastatin 40 mg tablet 40 mg PO DAILY oxycodone-acetaminophen 5-325 mg tablet 1 tab PO Q6H PRN PRN (Reason: pain) Referrals / Follow Up: Casey Martinez MD [Primary Care Provider] - Within 1 Week Disposition Disposition (needs filled in before D/C Order can be placed): Inpatient Rehab Unit/Facility
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
--- NOTE | 2024-01-21 10:23 | PHA.DC.MR.R ---
Pharmacy [place] Med Reconciliation Pharmacy Service has performed discharge medication reconciliation for this patient. The patient's discharge medication list was reviewed for discrepancies and discrepancies were resolved. Medications at Discharge Home Medications ondansetron HCl 4 mg tablet 4 mg PO Q8H PRN NAUSEA/VOMITING 08/02/22 sennosides 8.6 mg-docusate sodium 50 mg capsule (Senna Plus) 1 tab-cap PO QHS CONSTIPATION 08/02/22 tamsulosin 0.4 mg capsule 0.4 mg PO DAILY PROSTATE 08/02/22 ferrous sulfate 325 mg (65 mg iron) tablet 325 mg PO DAILY SUPPLEMENT 08/06/23 pramipexole 0.5 mg tablet 0.5 mg PO DAILY PARKINSONS 08/06/23 primidone 50 mg tablet 50 mg PO BID SEIZURES 08/06/23 melatonin 3 mg tablet 3 mg PO QHS PRN PRN Insomnia #0 tabs 08/14/23 pantoprazole 40 mg tablet,delayed release (Protonix) 40 mg PO DAILY 30 days #30 tabs 08/14/23 polyethylene glycol 3350 17 gram oral powder packet 17 g PO BID #0 ea 08/14/23 atorvastatin 80 mg tablet 80 mg PO QHS 12/31/23 finasteride 5 mg tablet 5 mg PO DAILY 12/31/23 potassium chloride 20 mEq tablet,extended release 20 meq PO DAILY 12/31/23 dutasteride 0.5 mg capsule 0.5 mg PO DAILY 01/16/24 fluticasone fur. 200 mcg-umeclid 62.5 mcg-vilant 25 mcg inhalat.powder (Trelegy Ellipta) 1 ea inhalation DAILY 01/16/24 acetaminophen 500 mg tablet 1,000 mg (2 x 500 mg) PO Q8 #0 tabs 01/21/24 furosemide 20 mg tablet 20 mg PO DAILY #0 tabs 01/21/24 metoprolol succinate 25 mg tablet,extended release 24 hr 12.5 mg (1/2 x 25 mg) PO DAILY #0 tabs 01/21/24
[2024-01-21] MEDS: Polyethylene Glycol 3350 17 GM PACKET PO (10:35)
[2024-01-21] MEDS: Furosemide 20 MG Tablet PO (10:35)
[2024-01-21] MEDS: Metoprolol(XL)Succ 25 MG Tablet 12.5 MG PO (10:37)
--- NOTE | 2024-01-21 11:52 | CASEMGMT ---
Patient is ready for discharge to [facility] Acute Rehab. MARCIO called patient's daughter Sana and left her a voice mail letting her know patient will be headed to Acute Rehab today. MARCIO explained patient will probably be over in the Rehab Unit when she comes in today. MARCIO explained to take the central elevators to the 4th floor. 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
--- NOTE | 2024-01-21 13:56 | NURSING ---
Report called to [facility]. Pt to go to room [id number]
== END 2024-01-21 14:21 | DRG 562 ==
LOC: ED 14:13 → PCU 16:18
PROVIDERS: Hospitalist; Nurse Practitioner; Admitting Provider Internal Medicine; Emergency Provider Emergency Medicine; PCP Family Medicine; Visit Provider Internal Medicine
DX: S82.144A Nondisplaced bicondylar fracture of right tibia, initial encounter for closed fracture (principal); I50.33 Acute on chronic diastolic (congestive) heart failure; N13.8 Other obstructive and reflux uropathy; I49.5 Sick sinus syndrome; J44.9 Chronic obstructive pulmonary disease, unspecified; N18.31 Chronic kidney disease, stage 3a; I34.81 Nonrheumatic mitral (valve) annulus calcification; E78.5 Hyperlipidemia, unspecified; R26.2 Difficulty in walking, not elsewhere classified; W10.9XXA Fall (on) (from) unspecified stairs and steps, initial encounter; K21.9 Gastro-esophageal reflux disease without esophagitis; R25.1 Tremor, unspecified; Y92.015 Private garage of single-family (private) house as the place of occurrence of the external cause; N40.1 Benign prostatic hyperplasia with lower urinary tract symptoms; R53.81 Other malaise; Z66 Do not resuscitate; Z79.51 Long term (current) use of inhaled steroids; Z79.899 Other long term (current) drug therapy; Z87.891 Personal history of nicotine dependence; Z95.0 Presence of cardiac pacemaker; G47.00 Insomnia, unspecified
CPT/HCPCS: 36415; 71045; 73564; 80048; 80061; 83735; 83880; 85025; 94640; 94668; 97116; 97163; 97166; 97530; 97535; 99283; A4216; J1940

== ENCOUNTER 2024-01-21 14:23 | Inpatient (IN) | payer MEDICARE, OTHER, SELFPAY ==
[2024-01-21 15:12] VITALS: BMI 25.2
[2024-01-21 15:15] VITALS: BP 128/74; PULSE 65; RESP 17; TEMP 36.4; O2SAT 96
[2024-01-21 17:22] VITALS: BP 110/62; PULSE 62; RESP 18; TEMP 36.5; O2SAT 98
[2024-01-21] MEDS: Menthol/Lanolin/Calamine/Znox 113 GM Tube 1 APPLIC TOPICAL (21:44)
[2024-01-21] MEDS: Nystatin Powder 15gm Bottle 1 APPLIC TOPICAL (21:45)
[2024-01-21] MEDS: oxyCODONE 5 MG Tablet PO (21:47)
[2024-01-21] MEDS: Fluticasone/Salmeterol 232-14 Inhaler 1 PUFF INHALATION (21:47)
[2024-01-21] MEDS: Atorvastatin Calcium 80 MG Tablet PO (21:48)
[2024-01-21] MEDS: Primidone 50 MG Tablet PO (21:48)
[2024-01-21] MEDS: Senna/Docusate Sodium 1 Tablet PO (21:49)
[2024-01-22] MEDS: oxyCODONE 5 MG Tablet PO ×2 (05:50→14:15)
[2024-01-22] MEDS: Enoxaparin 40 MG/0.4 ML Syringe SC (05:51)
[2024-01-22] MEDS: Menthol/Lanolin/Calamine/Znox 113 GM Tube 1 APPLIC TOPICAL ×3 (05:52→21:37)
[2024-01-22] MEDS: Nystatin Powder 15gm Bottle 1 APPLIC TOPICAL ×2 (05:52→21:34)
[2024-01-22 06:00] VITALS: BP 99/61; PULSE 73; RESP 16; TEMP 36.7; O2SAT 96
[2024-01-22 06:09] VITALS: BP 85/50; BP 94/52; BP 99/61; PULSE 68; PULSE 70; PULSE 79
[2024-01-22 07:59] VITALS: O2SAT 95
[2024-01-22 08:12] VITALS: PULSE 70
[2024-01-22] MEDS: Furosemide 20 MG Tablet PO (08:12)
[2024-01-22] MEDS: Tamsulosin HCl 0.4 MG Capsule PO (08:12)
[2024-01-22] MEDS: Metoprolol(XL)Succ 25 MG Tablet 12.5 MG PO (08:12)
[2024-01-22] MEDS: Pramipexole Di-HCl 0.5 MG Tablet PO (08:12)
[2024-01-22] MEDS: Umeclidinium Bromide Inhaler 1 PUFF INHALATION (08:13)
[2024-01-22] MEDS: Potassium Chloride Oral Tablet 20 MEQ PO (08:13)
[2024-01-22] MEDS: Finasteride 5 MG Tablet PO (08:13)
[2024-01-22] MEDS: Primidone 50 MG Tablet PO ×2 (08:13→21:32)
[2024-01-22] MEDS: Pantoprazole Sodium 40 MG Tablet PO (08:13)
[2024-01-22] MEDS: Fluticasone/Salmeterol 232-14 Inhaler 1 PUFF INHALATION ×2 (08:14→21:32)
[2024-01-22] MEDS: Ferrous Sulfate 325 MG Tablet PO (11:43)
[2024-01-22] MEDS: Ascorbic Acid 500 MG Tablet 1000 MG PO (11:43)
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
[2024-01-22] MEDS: 0.9% Normal Saline (1000mL) 1,000 ML 75 ML IV (14:10)
[2024-01-22 17:33] VITALS: BP 130/73; PULSE 73; RESP 17; TEMP 36.9; O2SAT 98
[2024-01-22] MEDS: Atorvastatin Calcium 80 MG Tablet PO (21:32)
[2024-01-22] MEDS: Senna/Docusate Sodium 1 Tablet PO (21:32)
[2024-01-23] MEDS: 0.9% Normal Saline (1000mL) 1,000 ML 75 ML IV (03:19)
[2024-01-23 06:00] VITALS: BP 121/58; PULSE 67; RESP 18; TEMP 36.6; O2SAT 97; BMI 25.6
[2024-01-23] MEDS: Enoxaparin 40 MG/0.4 ML Syringe SC (06:03)
[2024-01-23] MEDS: Menthol/Lanolin/Calamine/Znox 113 GM Tube 1 APPLIC TOPICAL ×3 (06:03→23:24)
[2024-01-23] MEDS: Nystatin Powder 15gm Bottle 1 APPLIC TOPICAL ×2 (06:04→23:23)
[2024-01-23 06:51] LABS: Absolute Lymphocyte Count 2.01 X10^3/uL (0.83-4.51); Absolute Neutrophil Count 2.3 X10^3/uL (2.0-7.7); Basophil# 0.02 X10^3/uL; Basophil% 0.4 % (0-1); Eosinophils% 3.8 % (0-5); Hematocrit 30.2 % (40-54); Hemoglobin 10.5 g/dL (13.0-16.5); Lymphocyte # 2.01 X10^3/ul (0.83-4.51); Lymphocyte % 38.5 % (19-41); Mean Corp Hgb Conc 34.8 g/dL (32-36); Mean Corpuscular Volume 103.4 fL (80-94); Monocyte% 13.4 % (0-10); NRBC Flagged by Analyzer 0 % (0-5); Neutrophil # 2.28 X10^3/uL (2.7-7.7); Neutrophil % 43.7 % (47-70); Platelet Count 123 K/mm3 (150-450); RBC Distribution Width CV 14.1 % (11.6-14.6); RBC Distribution Width SD 53.1 fl (35.1-43.9); Red Blood Count 2.92 M/mm3 (4.6-6.2); White Blood Count 5.2 K/mm3 (4.4-11.0)
[2024-01-23 07:24] LABS: ALB/GLOB Ratio 0.5 RATIO (0.9-2.4); AST(SGOT) 32 U/L (15-37); Alanine Aminotransfer ALT/SGPT 21 U/L (16-61); Albumin, Serum 2.1 g/dL (3.2-5.0); Alkaline Phosphatase 161 U/L (45-117); Anion Gap 5 (5-15); BUN 14 mg/dL (7-18); BUN/Creat Ratio 14.6 RATIO (10-20); Calcium,Total 8.2 mg/dL (8.5-10.1); Chloride 98 mmol/L (98-107); Creatinine, Serum 0.96 mg/dL (0.70-1.30); EST Glomerular Filtration Rate 80 mL/min (>60); Est Glom Filt Rate - Afr Amer 96 mL/min (>60); Estimated Creatinine Clearance 63.19 ml/min; Globulin 4.3 g/dL (2.2-4.2); Glucose 103 mg/dL (74-106); Phosphorus 2.7 mg/dL (2.5-4.9); Potassium 3.6 mmol/L (3.5-5.1); Protein, Total 6.4 g/dL (6.4-8.2); Sodium Level 128 mmol/L (136-145)
[2024-01-23 07:47] VITALS: O2SAT 98
[2024-01-23] MEDS: Umeclidinium Bromide Inhaler 1 PUFF INHALATION (07:54)
[2024-01-23] MEDS: Potassium Chloride Oral Tablet 20 MEQ PO (07:54)
[2024-01-23] MEDS: Pramipexole Di-HCl 0.5 MG Tablet PO (07:55)
[2024-01-23] MEDS: Fluticasone/Salmeterol 232-14 Inhaler 1 PUFF INHALATION ×2 (07:55→23:24)
[2024-01-23] MEDS: Primidone 50 MG Tablet PO ×2 (07:55→23:22)
[2024-01-23 07:56] VITALS: BP 121/58; PULSE 67
[2024-01-23] MEDS: Pantoprazole Sodium 40 MG Tablet PO (07:56)
[2024-01-23] MEDS: Finasteride 5 MG Tablet PO (07:56)
[2024-01-23] MEDS: Metoprolol(XL)Succ 25 MG Tablet 12.5 MG PO (07:56)
[2024-01-23] MEDS: oxyCODONE 5 MG Tablet PO ×3 (08:20→23:30)
[2024-01-23] MEDS: Ascorbic Acid 500 MG Tablet 1000 MG PO (12:17)
[2024-01-23] MEDS: Ferrous Sulfate 325 MG Tablet PO (12:17)
[2024-01-23 17:38] VITALS: BP 112/65; PULSE 84; RESP 18; TEMP 36.4; O2SAT 97
--- NOTE | 2024-01-23 17:40 | RAD_ITS ---
EXAM: XR BILATERAL HANDS COMPLETE, 3 OR MORE VIEWS CLINICAL INDICATION: deformity- -- + FH of RA TECHNIQUE: Frontal, lateral and oblique views of the bilateral hands. COMPARISON: No relevant prior studies available. FINDINGS: BONES/JOINTS: Bilateral diffuse osteopenia. Diffuse arthritic changes throughout the metacarpal phalangeal and interphalangeal joint of the bilateral hands. Diffuse radiocarpal joint arthrosis, right greater than left. Mild subluxation of the left second metacarpal phalangeal joint. Mild ulnar deviation of the second through third right metacarpophalangeal joints. No sclerotic or destructive changes observed. No acute fracture or dislocation. SOFT TISSUES: No significant abnormality. No soft tissue swelling or gas. No radiopaque foreign body. RAD/Hand Min 3 Views IMPRESSION: 1. No acute fracture or dislocation. Extensive degenerative changes with findings possibly indicative of osteoarthritis as well as rheumatoid arthritis. 2. Bilateral diffuse osteopenia. Electronically Signed: Sami Phillips DO at 20:25 EDT ,
--- NOTE | 2024-01-23 17:52 | RAD_ITS ---
EXAM: XR BILATERAL HANDS COMPLETE, 3 OR MORE VIEWS CLINICAL INDICATION: deformity- -- + FH of RA TECHNIQUE: Frontal, lateral and oblique views of the bilateral hands. COMPARISON: No relevant prior studies available. FINDINGS: BONES/JOINTS: Bilateral diffuse osteopenia. Diffuse arthritic changes throughout the metacarpal phalangeal and interphalangeal joint of the bilateral hands. Diffuse radiocarpal joint arthrosis, right greater than left. Mild subluxation of the left second metacarpal phalangeal joint. Mild ulnar deviation of the second through third right metacarpophalangeal joints. No sclerotic or destructive changes observed. No acute fracture or dislocation. SOFT TISSUES: No significant abnormality. No soft tissue swelling or gas. No radiopaque foreign body. RAD/Hand Min 3 Views IMPRESSION: 1. No acute fracture or dislocation. Extensive degenerative changes with findings possibly indicative of osteoarthritis as well as rheumatoid arthritis. 2. Bilateral diffuse osteopenia. Electronically Signed: Sami Phillips DO at 20:26 EDT ,
[2024-01-23] MEDS: Furosemide 40 MG/4 ML Vial IV (18:22)
--- NOTE | 2024-01-23 18:31 | PCM.RU.PYE ---
Admission Information Primary Diagnosis:: physical debility due to a fall with BL knee pain and inability to ambulate. Goals Goals Patient will remain: free from falls Patient will perform eating at: MOD I level of assist. Patient will perform bed mobility at: MOD I level of assist. Patient will complete transfers from bed to chair at: - (Supervision/standby assist ) Patient will ambulate: - (100 feet with a front wheeled walker at supervision) Patient will complete upper body dressing at: - (Set up assist) Patient will complete lower body dressing at: Standby Assist. Patient will complete toilet transfer at: - (Supervision) Patient will complete toileting at: - (Supervision) Patient will perform bathing at: - (Supervision/SBA) Patient will perform Tub/Shower transfer at: - (Supervision/standby assist) Patient will complete grooming at: MOD I level of assist. Patient will complete home management skills at: - Patient will achieve: - (Ascend/descend 3 steps with grab bars at the top at standby assist for safe entry into her home.) Patient will have pain level of: of 3 or less Patient's skin will: remain intact Patient will receive: adequate nutrition. Discharge Planning Pt Prognosis for Sig. Practical Improv. w/in Reasonable Time: Good Estimated Length of stay (days): 28 Anticipated D/C Destination: Home with Home Health Was Preadmission Assessment Accurate?: Yes
--- NOTE | 2024-01-23 18:32 | PN_ITS ---
Subjective Subjective Afebrile VSS - Maintaining appropriate oxygen saturation on RA Oral intake - FOOD good FLUIDS fair Discussed with nursing - no problems that need addressed Reviewed the THERAPY notes Medication list reviewed. Continues to c/o pain in the low back and also continues to deny radicular pain in the legs. He denies pain in his knees. He complains of dyspnea on exertion but this is a chronic complaint. He denies cough. He is not short of breath at rest. Denies lightheadedness, palpitations, chest pain, nausea/vomiting/epigastric pain, dysuria and calf tenderness. Objective Data Objective Data Vital Signs: Vital Signs Temp Pulse Resp BP Pulse Ox O2 Del Method 97.5 F L 84 18 112/65 97 Room Air 01/23/24 17:38 01/23/24 17:38 01/23/24 17:38 01/23/24 17:38 01/23/24 17:38 01/23/24 17:38 Oxygen Delivery Method Room Air Weight: 183 lb 10.321 oz Body Mass Index (BMI) 25.6 Intake & Output: Intake and Output for Last 24 Hours 01/21/24 01/22/24 01/23/24 23:59 23:59 23:59 Intake Total 480 / 480 1840 / 1840 3326.25 / 3326.25 Output Total 750 / 750 1999 / 1999 2200 / 2200 Balance -270 / -270 -160 / -160 1126.25 / 1126.25 Lab / Micro Data 01/23/24 06:32 01/25/24 03:50 Labs: Laboratory Results - last 24 hr 01/23/24 06:32: WBC 5.2, RBC 2.92 L, Hgb 10.5 L, Hct 30.2 L, MCV 103.4 H, MCH 36.0 H, MCHC 34.8, RDW Std Deviation 53.1 H, RDW Coeff of Eleanor 14.1, Plt Count 123 L, MPV 12.0, Immature Gran % (Auto) 0.200, Neut % (Auto) 43.7 L, Lymph % (Auto) 38.5, Overton % (Auto) 13.4 H, Eos % (Auto) 3.8, Baso % (Auto) 0.4, Absolute Neuts (auto) 2.3, Absolute Lymphs (auto) 2.01, Nucleated RBC % 0, Sodium 128 L, Potassium 3.6, Chloride 98, Carbon Dioxide 25.0, Anion Gap 5, BUN 14, Creatinine 0.96, Estim Creat Clear Calc 63.19, Est GFR (MDRD) Af Amer 96, Est GFR (MDRD) Non-Af 80, BUN/Creatinine Ratio 14.6, Glucose 103, Calcium 8.2 L, Phosphorus 2.7, Magnesium 2.0, Total Bilirubin 0.40, AST 32, ALT 21, Alkaline Phosphatase 161 H, Total Protein 6.4, Albumin 2.1 L, Globulin 4.3 H, Albumin/Globulin Ratio 0.5 L Physical Exam Const alert, oriented x3 and no apparent distress Resp normal respiratory effort Resp Narrative: Few scattered coarse crackles. Auscultation: diminished lung sounds Cardio regular rate, regular rhythm and no gallops Cardio Narrative: Heart sound are distant. GI normal to inspection, nondistended, normoactive bowel sounds, soft to palpation and non-tender Extremity Extremity Narrative: Still with pitting edema of both lower extremities that extends into the thighs bilaterally. Skin Rashes: no rashes Psych Psych Narrative: Flat affect. Cooperative and has been participating in therapy and not refused any therapies. Appearance: appropriate Attitude: No agitated Assessment & Plan Assessment/Plan (1) Physical debility: (2) Fall: QUALIFIERS: Encounter type: subsequent encounter Qualified Code(s): W19.XXXD - Unspecified fall, subsequent encounter (3) Bilateral knee pain: QUALIFIERS: Chronicity: acute Qualified Code(s): M25.561 - Pain in right knee; M25.562 - Pain in left knee (4) Inability to ambulate due to knee: (5) Closed fracture of tibial plateau: QUALIFIERS: Encounter type: subsequent encounter Laterality: r ight (6) Acute exacerbation of CHF (congestive heart failure): (7) (HFpEF) heart failure with preserved ejection fraction: (8) Bilateral pleural effusion: (9) Macrocytic anemia: PLAN: Plan 1. Continue therapy 2. Order compounded arthritis cream to the low back twice daily to see if this helps with the local pain. Continue oxycodone 5 mg every 6 hours as needed pain 4-10. He has been taking 2 doses a day and is content with his pain management. 3. DC p.o. Lasix and give Lasix 40 mg IV now. Also give a potassium supplement as his K is only 3.6 today. Albumin is only 2.1 and he may need to have IV albumin with the Lasix chaser to diurese him but will see how he does with 1 dose of IV Lasix now. 4. Continue accurate I&O's and institute daily weights. 5. check a BNP, PT/INR, urine and serum osmolality, urine sodium, ESR, CRP, RF, ANNA. 6. BL hand XRAYS. 7. Start Cymbalta 20 mg daily for chronic pain. 8. consider checking an US of the liver and query him when family is not present about ETOH consumption in the past. Charges/Coding Visit Charges Inpatient E&M: 00821 Subs Hosp L1
[2024-01-23 18:45] LABS: Rheumatoid Factor < 10.0 IU/mL (<15)
[2024-01-23 18:51] LABS: Immature Platelet Fraction 6.1 % (1.0-7.9); Platelet Count 137 K/mm3 (150-450); RET-HE 39.5 pg (30-35); Reticulocyte Count 1.24 % (0.5-1.5)
[2024-01-23 18:52] LABS: Erythrocyte Sedimentation Rate 21 mm/hr (0-20)
[2024-01-23 19:32] LABS: International Normalized Ratio 1.3; Prothrombin Time (Protime)PT. 16.3 SECONDS (11.7-14.9)
[2024-01-23 19:34] LABS: Osmolality, Serum 271 mOsm/KG (280-301)
[2024-01-23 19:34] LABS: Osmolality, Urine 189 mOsm/KG
[2024-01-23 19:36] LABS: Urine Sodium 31 mmol/L (Not Establ.)
[2024-01-23] MEDS: Potassium Chloride Oral Tablet 20 MEQ 40 MEQ PO (19:49)
[2024-01-23 22:00] VITALS: O2SAT 93
[2024-01-23] MEDS: Senna/Docusate Sodium 1 Tablet PO (23:22)
[2024-01-23] MEDS: Atorvastatin Calcium 80 MG Tablet PO (23:22)
[2024-01-23] MEDS: MELATONIN 3 MG TABLET PO (23:30)
[2024-01-24 06:00] VITALS: BP 105/60; PULSE 55; RESP 18; TEMP 36.9; O2SAT 95; BMI 25.6
[2024-01-24] MEDS: 0.9% Saline Lock 10 ML Syringe IV (06:36)
[2024-01-24] MEDS: Enoxaparin 40 MG/0.4 ML Syringe SC (06:36)
[2024-01-24] MEDS: Menthol/Lanolin/Calamine/Znox 113 GM Tube 1 APPLIC TOPICAL ×3 (06:38→21:59)
[2024-01-24] MEDS: Nystatin Powder 15gm Bottle 1 APPLIC TOPICAL ×2 (06:38→21:59)
[2024-01-24 07:47] VITALS: O2SAT 98
[2024-01-24] MEDS: Potassium Chloride Oral Tablet 20 MEQ PO (08:50)
[2024-01-24] MEDS: oxyCODONE 5 MG Tablet PO ×3 (08:50→23:47)
[2024-01-24] MEDS: Umeclidinium Bromide Inhaler 1 PUFF INHALATION (08:51)
[2024-01-24] MEDS: DULoxetine Hcl 20 MG Capsule PO (08:51)
[2024-01-24] MEDS: Fluticasone/Salmeterol 232-14 Inhaler 1 PUFF INHALATION ×2 (08:51→21:55)
[2024-01-24] MEDS: Pramipexole Di-HCl 0.5 MG Tablet PO (08:52)
[2024-01-24] MEDS: Primidone 50 MG Tablet PO ×2 (08:52→21:55)
[2024-01-24 08:53] VITALS: PULSE 75
[2024-01-24] MEDS: Metoprolol(XL)Succ 25 MG Tablet 12.5 MG PO (08:53)
[2024-01-24] MEDS: Pantoprazole Sodium 40 MG Tablet PO (08:53)
[2024-01-24] MEDS: Finasteride 5 MG Tablet PO (08:53)
[2024-01-24] MEDS: Polyethylene Glycol 3350 17 GM PACKET PO (08:57)
[2024-01-24 09:45] VITALS: PULSE 78; O2SAT 94
[2024-01-24] MEDS: Ascorbic Acid 500 MG Tablet 1000 MG PO (11:32)
[2024-01-24] MEDS: Ferrous Sulfate 325 MG Tablet PO (11:32)
[2024-01-24] MEDS: Furosemide 40 MG/4 ML Vial IV (14:30)
[2024-01-24] MEDS: Sodium Chloride 1 GM Tablet PO ×2 (14:30→21:56)
--- NOTE | 2024-01-24 17:14 | NURSING ---
pt had medium bm today, unable to collect for sample d/t missed hat.
[2024-01-24 18:00] VITALS: BP 94/60; PULSE 62; RESP 12; TEMP 36.8; O2SAT 96
[2024-01-24] MEDS: Atorvastatin Calcium 80 MG Tablet PO (21:55)
[2024-01-25] MEDS: Sodium Chloride 1 GM Tablet PO ×3 (05:09→21:50)
[2024-01-25] MEDS: Enoxaparin 40 MG/0.4 ML Syringe SC (05:09)
[2024-01-25] MEDS: Nystatin Powder 15gm Bottle 1 APPLIC TOPICAL ×2 (05:09→21:51)
[2024-01-25] MEDS: Menthol/Lanolin/Calamine/Znox 113 GM Tube 1 APPLIC TOPICAL ×3 (05:10→21:51)
[2024-01-25 05:14] LABS: Anion Gap 5 (5-15); BUN 23 mg/dL (7-18); Calcium,Total 8.5 mg/dL (8.5-10.1); Chloride 98 mmol/L (98-107); EST Glomerular Filtration Rate 76 mL/min (>60); Est Glom Filt Rate - Afr Amer 92 mL/min (>60); Estimated Creatinine Clearance 60.66 ml/min; Glucose 102 mg/dL (74-106); Potassium 5.2 mmol/L (3.5-5.1); Sodium Level 128 mmol/L (136-145)
[2024-01-25 05:48] VITALS: BP 101/55; PULSE 74; RESP 19; TEMP 37.1; O2SAT 96
[2024-01-25 06:00] VITALS: BMI 25.1
[2024-01-25] MEDS: oxyCODONE 5 MG Tablet PO ×2 (06:45→15:41)
[2024-01-25 07:43] VITALS: O2SAT 96
--- NOTE | 2024-01-25 08:59 | NURSING ---
pt weighed in bed. Was weighed yesterday on standing scale with boots on, causing an increase in weight.
[2024-01-25 09:40] VITALS: PULSE 78
[2024-01-25] MEDS: Finasteride 5 MG Tablet PO (09:40)
[2024-01-25] MEDS: Pramipexole Di-HCl 0.5 MG Tablet PO (09:40)
[2024-01-25] MEDS: Pantoprazole Sodium 40 MG Tablet PO (09:40)
[2024-01-25] MEDS: Fluticasone/Salmeterol 232-14 Inhaler 1 PUFF INHALATION ×2 (09:40→21:49)
[2024-01-25] MEDS: Metoprolol(XL)Succ 25 MG Tablet 12.5 MG PO (09:40)
[2024-01-25] MEDS: DULoxetine Hcl 20 MG Capsule PO (09:40)
[2024-01-25] MEDS: Primidone 50 MG Tablet PO ×2 (09:40→21:50)
[2024-01-25] MEDS: Umeclidinium Bromide Inhaler 1 PUFF INHALATION (09:40)
[2024-01-25] MEDS: Polyethylene Glycol 3350 17 GM PACKET PO (09:43)
[2024-01-25] MEDS: Ferrous Sulfate 325 MG Tablet PO (13:48)
[2024-01-25] MEDS: Furosemide 40 MG/4 ML Vial IV (13:48)
[2024-01-25] MEDS: Ascorbic Acid 500 MG Tablet 1000 MG PO (13:48)
[2024-01-25 18:00] VITALS: BP 99/60; PULSE 64; RESP 16; TEMP 35.9; O2SAT 94
[2024-01-25 21:31] VITALS: O2SAT 94
[2024-01-25] MEDS: Atorvastatin Calcium 80 MG Tablet PO (21:50)
[2024-01-25] MEDS: Arthritis Pain Compound 60 CLICK TUBE TOPICAL (21:50)
[2024-01-25] MEDS: 0.9% Saline Lock 10 ML Syringe IV (21:54)
[2024-01-26] MEDS: Menthol/Lanolin/Calamine/Znox 113 GM Tube 1 APPLIC TOPICAL ×3 (05:02→20:58)
[2024-01-26] MEDS: Enoxaparin 40 MG/0.4 ML Syringe SC (05:02)
[2024-01-26] MEDS: Sodium Chloride 1 GM Tablet PO ×3 (05:02→20:56)
[2024-01-26] MEDS: Nystatin Powder 15gm Bottle 1 APPLIC TOPICAL ×2 (05:03→20:58)
[2024-01-26 05:05] VITALS: BP 112/62; PULSE 70; RESP 18; TEMP 36.6; O2SAT 94
[2024-01-26 05:13] VITALS: BMI 24.7
[2024-01-26 08:22] VITALS: PULSE 80; RESP 14; O2SAT 95
[2024-01-26] MEDS: Ipratropium/Albuterol Sulfate 3 ML AMPUL.NEB INHALATION (08:22)
[2024-01-26] MEDS: Fluticasone/Salmeterol 232-14 Inhaler 1 PUFF INHALATION ×2 (08:33→20:57)
[2024-01-26] MEDS: Umeclidinium Bromide Inhaler 1 PUFF INHALATION (08:33)
[2024-01-26] MEDS: Arthritis Pain Compound 60 CLICK TUBE TOPICAL (08:37)
[2024-01-26 09:28] VITALS: PULSE 80
[2024-01-26] MEDS: Metoprolol(XL)Succ 25 MG Tablet 12.5 MG PO (09:28)
[2024-01-26] MEDS: Pramipexole Di-HCl 0.5 MG Tablet PO (09:28)
[2024-01-26] MEDS: DULoxetine Hcl 20 MG Capsule PO (09:28)
[2024-01-26] MEDS: Pantoprazole Sodium 40 MG Tablet PO (09:28)
[2024-01-26] MEDS: Primidone 50 MG Tablet PO ×2 (09:28→20:56)
[2024-01-26] MEDS: Finasteride 5 MG Tablet PO (09:28)
[2024-01-26] MEDS: Polyethylene Glycol 3350 17 GM PACKET PO ×2 (09:28→20:59)
[2024-01-26] MEDS: oxyCODONE 5 MG Tablet PO ×2 (09:32→19:53)
--- NOTE | 2024-01-26 09:59 | PN_ITS ---
Subjective Subjective Bill was seen on TEAM rounds today. His Ena participated by phone. febrile VSS - Maintaining appropriate oxygen saturation on RA Oral intake - FOOD good FLUIDS fair The weight today is 177 pounds and 14 ounces which is down from 188 pounds and 15 ounces on 01/20/2024. Has been getting Lasix 40 mg IV daily over the past 3 days. Fluid balance yesterday was -970. Discussed with nursing - no problems that need addressed Reviewed the THERAPY notes Medication list reviewed. Denies lightheadedness, chest pain, palpitations, nausea/vomiting/abdominal pain, dysuria and calf pain. He had an episode with breakfast today where he started coughing/choking. He tells me he has had 3-4 episodes of this over the past 6 months. He thinks it is associated with liquids but nursing felt it was due to the omelette he was eating. He had marked cough for a bit. He complained of shortness of breath but this resolved with an albuterol aerosol treatment. He denies pain in his knees. He is still having back pain. Denies radicular pain. Has not noticed much improvement with the arthritis compounded cream. He was started on Salt tabs over the weekend and is on 1500 cc fluid restriction. Also getting Lasix. The edema in the Le's is much improved. All lab done since Friday was personally reviewed. Sodium was stable at 128 yesterday. Creat was within baseline yesterday at 1. K was 5.2........may have been hemolyzed......K supplement was placed on hold. Rheumatoid factor is less than 10. ANNA is pending. Sed rate and CRP are mildly elevated. Serum osmolality was low at 271 but the urine was less than maximally dilute and the sodium was greater than 20. This is most consistent with SIADH. Reticulocyte count is not increased. Folate was normal. B12 is normal. The percent iron saturation in September was normal at 30%. TIBC and iron were both low. Hemoccult has not been collected. Last BM was Friday. Hand x-ray showed bilateral diffuse osteopenia with extensive degenerative changes throughout the metacarpal phalangeal and interphalangeal joints of both hands that could be due to OA +/- RA. There was mild ulnar deviation present. No fractures or dislocations. Objective Data Objective Data Vital Signs: Vital Signs Temp Pulse Resp BP Pulse Ox O2 Del Method 97.9 F 80 14 112/62 95 Room Air 01/26/24 05:05 01/26/24 09:28 01/26/24 08:22 01/26/24 05:05 01/26/24 08:22 01/26/24 08:22 Oxygen Delivery Method Room Air Weight: 177 lb 14.4 oz Body Mass Index (BMI) 24.7 Intake & Output: Intake and Output for Last 24 Hours 01/24/24 01/25/24 01/26/24 23:59 23:59 23:59 Intake Total 1460 / 1535 1155 / 1155 420 / 420 Output Total 1950 / 2425 2125 / 2125 150 / 150 Balance -490 / -890 -970 / -970 270 / 270 Lab / Micro Data 01/23/24 06:32 01/25/24 03:50 Physical Exam Const alert, oriented x3 and no apparent distress Constitutional Narrative: Making good eye contact. Affect is a little flat. General Appearance: cooperative HEENT Mouth: dry mucous membranes Resp normal respiratory effort Resp Narrative: Few scattered coarse crackles. Auscultation: diminished lung sounds Cardio regular rate, regular rhythm and no gallops Cardio Narrative: Heart sound are distant. GI normal to inspection, nondistended, normoactive bowel sounds, soft to palpation and non-tender Extremity Extremity Narrative: the edema in the legs is much improved. ENRICO hose are in place. Denies calf tenderness. No reddened or swollen joints of the hands.....he has a lot of saranya enlargement of the metacarpal phalangeal joints and the anterior phalangeal joints. Marked thenar wasting of both hands. Skin Rashes: no rashes Psych Psych Narrative: Flat affect. Cooperative and has been participating in therapy and not refused any therapies. Appearance: appropriate Attitude: No agitated Assessment & Plan Assessment/Plan (1) Physical debility: (2) Fall: QUALIFIERS: Encounter type: subsequent encounter Qualified Code(s): W19.XXXD - Unspecified fall, subsequent encounter (3) Bilateral knee pain: QUALIFIERS: Chronicity: acute Qualified Code(s): M25.561 - Pain in right knee; M25.562 - Pain in left knee (4) Inability to ambulate due to knee: (5) Closed fracture of tibial plateau: QUALIFIERS: Encounter type: subsequent encounter Laterality: r ight (6) Acute exacerbation of CHF (congestive heart failure): (7) (HFpEF) heart failure with preserved ejection fraction: (8) Bilateral pleural effusion: (9) Macrocytic anemia: (10) Hypoalbuminemia: PLAN: Plan 1. Continue therapy 2. Start Lasix 60 mg daily today p.o. 3. BMP and CBC in the a.m. and a CCP 4. Start gabapentin 100 mg twice daily and 300 mg at 2100. 5. Await the results of the Hemoccult stool. 6. Iron studies, B12, folate are all within normal limits. The reticulocyte count is not elevated. Suspect he has anemia of chronic disease but I have not identified the chronic disease. Awaiting the results of the hemoccult. 7. PA and lateral chest x-ray today for possible aspiration/bilateral effusions 8. Speech therapy evaluation for swallowing today. If the hemoccult is negative consider starting Celebrex 100-200 mg daily. Charges/Coding Visit Charges Inpatient E&M: 37928 Subs Hosp L2
--- NOTE | 2024-01-26 10:35 | RAD_ITS ---
STUDY: X-RAY CHEST REASON FOR EXAM: Male, 83 years old. Cough/possible aspiration TECHNIQUE: PA and lateral views of the chest. COMPARISON: Comparison is made with prior study dated January 16, 2024. FINDINGS: Stable bilateral pleural-parenchymal changes at the lung bases slightly more prominent on the left side. Residual vascular congestion is seen. 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 Normal mediastinum and samir. Normal visualized pulmonary arteries. Normal visualized aortic arch and descending thoracic aorta. Normal visualized thoracic spine. Normal visualized ribs, clavicles, and shoulders. There is no demonstrated abnormality of the visualized soft tissue structures of the upper abdomen. RAD/Chest PA and Lateral IMPRESSION: Stable bilateral pleural-parenchymal changes more prominent on the left side with mild degree of superimposed CHF. Electronically Signed: Bucky Fletcher MD at 13:22 EDT ,
[2024-01-26] MEDS: Furosemide 40 MG Tablet 60 MG PO (11:05)
[2024-01-26] MEDS: Ascorbic Acid 500 MG Tablet 1000 MG PO (12:07)
[2024-01-26] MEDS: Ferrous Sulfate 325 MG Tablet PO (12:07)
--- NOTE | 2024-01-26 13:23 | CASEMGMT ---
Social Work IDT met with patient and via conference call for Team meeting. Discussed patient's progress in PT/OT/SN. ST to evaluate swallowing. Educated to Medicare approval of 14 days with DC 02/03. SW offered to update dtr on DC date as she would be transporting pt home. SW will continue to follow. Will ReTeam next week. Kiersten Obrien, CASE MANAGEMENT ASSISTANT IRONER
[2024-01-26 15:08] LABS: ANTINUCLEAR ANTIBODIES DIRECT Positive (Negative); Anti-Centromere B Ab <0.2 AI (0.0-0.9); Anti-Chromatin <0.2 AI (0.0-0.9); Anti-Jo <0.2 AI (0.0-0.9); Anti-Scleroderma-70 AB <0.2 AI (0.0-0.9); Anti-dsDNA Ab 25 IU/mL (0-9); RNP Ab <0.2 AI (0.0-0.9); SJOGREN'S Anti-SS-A test < 0.2 AI (0.0-0.9); SJOGREN'S Anti-SS-B test < 0.2 AI (0.0-0.9); Smith Ab <0.2 AI (0.0-0.9)
[2024-01-26] MEDS: Gabapentin 100 MG Capsule PO (17:26)
[2024-01-26 17:28] VITALS: BP 97/57; PULSE 69; RESP 16; TEMP 36.7; O2SAT 96
[2024-01-26] MEDS: Gabapentin 300 MG Capsule PO (20:56)
[2024-01-26] MEDS: Atorvastatin Calcium 80 MG Tablet PO (20:56)
[2024-01-27] MEDS: Enoxaparin 40 MG/0.4 ML Syringe SC (05:11)
[2024-01-27] MEDS: Nystatin Powder 15gm Bottle 1 APPLIC TOPICAL ×2 (05:11→21:03)
[2024-01-27] MEDS: Sodium Chloride 1 GM Tablet PO ×3 (05:11→20:59)
[2024-01-27] MEDS: Menthol/Lanolin/Calamine/Znox 113 GM Tube 1 APPLIC TOPICAL ×3 (05:12→21:02)
[2024-01-27 05:17] LABS: Hematocrit 30.6 % (40-54); Hemoglobin 10.5 g/dL (13.0-16.5); Mean Corp Hgb Conc 34.3 g/dL (32-36); Mean Corpuscular Hgb 35.8 pg (27.0-32.0); Mean Corpuscular Volume 104.4 fL (80-94); Mean Platelet Vol. 11.1 fl (6.2-12.0); Platelet Count 148 K/mm3 (150-450); RBC Distribution Width CV 14.5 % (11.6-14.6); RBC Distribution Width SD 55.1 fl (35.1-43.9); Red Blood Count 2.93 M/mm3 (4.6-6.2); White Blood Count 5.2 K/mm3 (4.4-11.0)
[2024-01-27 05:34] LABS: Anion Gap 6 (5-15); BUN 21 mg/dL (7-18); BUN/Creat Ratio 20.4 RATIO (10-20); Calcium,Total 8.4 mg/dL (8.5-10.1); Chloride 100 mmol/L (98-107); Creatinine, Serum 1.03 mg/dL (0.70-1.30); EST Glomerular Filtration Rate 73 mL/min (>60); Est Glom Filt Rate - Afr Amer 89 mL/min (>60); Estimated Creatinine Clearance 58.89 ml/min; Glucose 97 mg/dL (74-106); Potassium 3.6 mmol/L (3.5-5.1); Sodium Level 132 mmol/L (136-145)
[2024-01-27 05:38] VITALS: BMI 25.2
[2024-01-27 05:42] VITALS: BP 108/68; PULSE 70; RESP 20; TEMP 37.1; O2SAT 94
[2024-01-27] MEDS: oxyCODONE 5 MG Tablet PO (07:45)
[2024-01-27 08:09] VITALS: BP 108/68; PULSE 70
[2024-01-27] MEDS: Polyethylene Glycol 3350 17 GM PACKET PO ×2 (08:09→20:58)
[2024-01-27] MEDS: Gabapentin 100 MG Capsule PO ×2 (08:09→17:09)
[2024-01-27] MEDS: Metoprolol(XL)Succ 25 MG Tablet 12.5 MG PO (08:09)
[2024-01-27] MEDS: Furosemide 40 MG Tablet 60 MG PO (08:10)
[2024-01-27] MEDS: DULoxetine Hcl 20 MG Capsule PO (08:10)
[2024-01-27] MEDS: Primidone 50 MG Tablet PO ×2 (08:10→20:59)
[2024-01-27] MEDS: Pramipexole Di-HCl 0.5 MG Tablet PO (08:10)
[2024-01-27] MEDS: Pantoprazole Sodium 40 MG Tablet PO (08:10)
[2024-01-27] MEDS: Finasteride 5 MG Tablet PO (08:10)
[2024-01-27] MEDS: Umeclidinium Bromide Inhaler 1 PUFF INHALATION (08:11)
[2024-01-27] MEDS: Fluticasone/Salmeterol 232-14 Inhaler 1 PUFF INHALATION ×2 (08:11→20:59)
[2024-01-27] MEDS: Arthritis Pain Compound 60 CLICK TUBE TOPICAL (08:11)
--- NOTE | 2024-01-27 08:45 | PN_ITS ---
Subjective Subjective Afebrile VSS - Maintaining appropriate oxygen saturation on RA Oral intake - FOOD good FLUIDS to good. Oral intake yesterday was 1500. Fluid balance was +570. Overnight he was -170. Discussed with nursing - no problems that need addressed Reviewed the THERAPY notes Medication list reviewed. Continues to take 2 doses of oxycodone 5 mg daily. Started on gabapentin for back pain yesterday. All lab from this morning was personally reviewed. White blood cell count is within normal limits. The hemoglobin is stable at 10.5. Platelets today are 148,000, up from 123,000 on 01/23/2024. Sodium is 132 which is up from 128 on 01/25/2024. Potassium is 3.6. The BUN is stable at 21 and the creatinine is stable at 1.03. ANNA is positive. Double-stranded DNA is positive at 25. CCP is pending. He tells me today that he feels the Gabapentin is helping the back pain. He had a better night last night with regard to back pain. Denies CP, SOB at rest, palpitations, lightheadedness, dysuria and calf pain. He tells me that he had a CT chest at [facility] possibly 1 year ago. Does not know the results. Objective Data Objective Data Vital Signs: Vital Signs Temp Pulse Resp BP Pulse Ox O2 Del Method 98.7 F 70 20 H 108/68 94 Room Air 01/27/24 05:42 01/27/24 08:09 01/27/24 05:42 01/27/24 08:09 01/27/24 05:42 01/27/24 05:42 Oxygen Delivery Method Room Air Weight: 180 lb 15.992 oz Body Mass Index (BMI) 25.2 Intake & Output: Intake and Output for Last 24 Hours 01/25/24 01/26/24 01/27/24 23:59 23:59 23:59 Intake Total 1155 / 1155 1520 / 1520 Output Total 2125 / 2125 950 / 950 175 / 175 Balance -970 / -970 570 / 570 -175 / -175 Lab / Micro Data 01/27/24 05:05 01/27/24 05:05 Labs: Laboratory Results - last 24 hr 01/23/24 18:30: ANNA Screen Positive H, NORMA-1 Antibody <0.2, SS-A/Ro IgG Antibody < 0.2, SS-B/La IgG Antibody < 0.2, Sm (Nam) Antibody <0.2, SIDER Antibody <0.2, Scl-70 Scleroderma Ab <0.2, Double Strand DNA Ab 25 H, Centromere B Antibody <0.2 01/27/24 05:05: WBC 5.2, RBC 2.93 L, Hgb 10.5 L, Hct 30.6 L, MCV 104.4 H, MCH 35.8 H, MCHC 34.3, RDW Std Deviation 55.1 H, RDW Coeff of Eleanor 14.5, Plt Count 148 L, MPV 11.1, Sodium 132 L, Potassium 3.6, Chloride 100, Carbon Dioxide 26.0, Anion Gap 6, BUN 21 H, Creatinine 1.03, Estim Creat Clear Calc 58.89, Est GFR (MDRD) Af Amer 89, Est GFR (MDRD) Non-Af 73, BUN/Creatinine Ratio 20.4 H, Glucose 97, Calcium 8.4 L Radiography Diagnostic Testing: Radiology Impression Chest X-Ray 01/26/24 10:35 IMPRESSION: Stable bilateral pleural-parenchymal changes more prominent on the left side with mild degree of superimposed CHF. Electronically Signed: Bucky Fletcher MD at 13:22 EDT , Physical Exam Const alert Constitutional Narrative: Making good eye contact. Affect is a little flat. General Appearance: cooperative HEENT Mouth: dry mucous membranes Resp normal respiratory effort Resp Narrative: Few scattered coarse crackles. Auscultation: diminished lung sounds Cardio regular rate, regular rhythm, no rub and no gallops Cardio Narrative: Heart sounds are distant. GI normal to inspection, nondistended, normoactive bowel sounds, soft to palpation and non-tender Skin Rashes: no rashes Neuro CN's II-XII intact bilaterally Assessment & Plan Assessment/Plan (1) Physical debility: (2) Fall: QUALIFIERS: Encounter type: subsequent encounter Qualified Code(s): W19.XXXD - Unspecified fall, subsequent encounter (3) Bilateral knee pain: QUALIFIERS: Chronicity: acute Qualified Code(s): M25.561 - Pain in right knee; M25.562 - Pain in left knee (4) Inability to ambulate due to knee: (5) Closed fracture of tibial plateau: QUALIFIERS: Encounter type: subsequent encounter Laterality: r ight (6) Acute exacerbation of CHF (congestive heart failure): (7) (HFpEF) heart failure with preserved ejection fraction: (8) Bilateral pleural effusion: (9) Macrocytic anemia: (10) Lupus (systemic lupus erythematosus): QUALIFIERS: Systemic lupus erythematosus type: unspecified S ystemic lupus erythematosus organ involvement: lung involvement Qualified Code(s): M32.13 - Lung involvement in systemic lupus erythematosus PLAN: Anemia of chronic disease, thrombocytopenia, joint deformities, hx of VTE, pulmonary disease PLAN: Plan 1. Continue therapy 2. Start Celebrex 100 mg daily. 3. Continue the Gabapentin at the current dose. 4. Records requested from Dr. Martinez and DESEAN.....lashonda interested in any CT scans of the Chest or abd. 5. Will need a referral to rheumatology at [place] 6. Check orthostatics today 7. Continue Lasix 60 mg daily, NACL ! gm TID and 1500 cc fluid restriction 8. hold Metoprolol if systolic is less than 110 - nursing has not been holding the Metoprolol and BP's have been less than 110......will place a hold on the medication and monitor BP and HR for the next few days. 9. Add potassium chloride 20 MEQ's p.o. daily to the current drug regimen. 9. Needs a DEXA as an OP. Charges/Coding Visit Charges Inpatient E&M: 17791 [facility] Hosp L1
[2024-01-27] MEDS: Potassium Chloride Oral Tablet 20 MEQ PO (10:12)
[2024-01-27 11:15] VITALS: BP 104/52; BP 88/59; BP 93/55; PULSE 64; PULSE 67; PULSE 78
[2024-01-27] MEDS: Ascorbic Acid 500 MG Tablet 1000 MG PO (12:19)
[2024-01-27] MEDS: Celecoxib 100 MG Capsule PO (12:19)
[2024-01-27] MEDS: Ferrous Sulfate 325 MG Tablet PO (12:19)
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
[2024-01-27 17:25] VITALS: BP 117/66; PULSE 83; RESP 18; TEMP 36.6; O2SAT 96
[2024-01-27] MEDS: Gabapentin 300 MG Capsule PO (20:59)
[2024-01-27] MEDS: Atorvastatin Calcium 80 MG Tablet PO (20:59)
[2024-01-27] MEDS: Senna/Docusate Sodium 1 Tablet 2 TABLET PO (20:59)
--- NOTE | 2024-01-28 03:38 | NURSING ---
Reviewed and agree with Terrance WHITLEY, documentationand assessment charting.
[2024-01-28 06:00] VITALS: BP 100/47; PULSE 74; RESP 18; TEMP 36.8; O2SAT 93; BMI 25.1
[2024-01-28] MEDS: Enoxaparin 40 MG/0.4 ML Syringe SC (06:13)
[2024-01-28] MEDS: Sodium Chloride 1 GM Tablet PO ×3 (06:13→22:32)
[2024-01-28] MEDS: Nystatin Powder 15gm Bottle 1 APPLIC TOPICAL ×2 (06:13→22:34)
[2024-01-28] MEDS: Menthol/Lanolin/Calamine/Znox 113 GM Tube 1 APPLIC TOPICAL ×3 (06:13→22:33)
[2024-01-28] MEDS: Potassium Chloride Oral Tablet 20 MEQ PO (07:52)
[2024-01-28] MEDS: Gabapentin 100 MG Capsule PO ×2 (07:52→16:57)
[2024-01-28] MEDS: Polyethylene Glycol 3350 17 GM PACKET PO (07:52)
[2024-01-28] MEDS: Primidone 50 MG Tablet PO ×2 (07:52→22:33)
[2024-01-28] MEDS: Celecoxib 100 MG Capsule PO (07:52)
[2024-01-28] MEDS: Senna/Docusate Sodium 1 Tablet 2 TABLET PO (07:52)
[2024-01-28] MEDS: DULoxetine Hcl 20 MG Capsule PO (07:52)
[2024-01-28] MEDS: Finasteride 5 MG Tablet PO (07:53)
[2024-01-28] MEDS: Furosemide 40 MG Tablet 60 MG PO (07:53)
[2024-01-28] MEDS: Pramipexole Di-HCl 0.5 MG Tablet PO (07:53)
[2024-01-28] MEDS: Umeclidinium Bromide Inhaler 1 PUFF INHALATION (07:53)
[2024-01-28] MEDS: Pantoprazole Sodium 40 MG Tablet PO (07:53)
[2024-01-28] MEDS: Fluticasone/Salmeterol 232-14 Inhaler 1 PUFF INHALATION ×2 (07:54→22:33)
[2024-01-28] MEDS: Ascorbic Acid 500 MG Tablet 1000 MG PO (12:07)
[2024-01-28] MEDS: Ferrous Sulfate 325 MG Tablet PO (12:08)
[2024-01-28 12:10] LABS: CCP IgG Antibodies 16 units (0-19)
[2024-01-28 18:00] VITALS: BP 102/59; PULSE 71; RESP 17; TEMP 36.7
[2024-01-28] MEDS: Gabapentin 300 MG Capsule PO (20:24)
[2024-01-28 22:30] VITALS: PULSE 71; RESP 17; O2SAT 93
[2024-01-28] MEDS: Atorvastatin Calcium 80 MG Tablet PO (22:32)
--- NOTE | 2024-01-29 02:55 | NURSING ---
Reviewed and agree with Mariela WHITLEY, documentation and assessment charting.
[2024-01-29 06:00] VITALS: BP 109/63; PULSE 76; RESP 18; TEMP 36.7; O2SAT 91; BMI 25.2
[2024-01-29] MEDS: Enoxaparin 40 MG/0.4 ML Syringe SC (06:33)
[2024-01-29] MEDS: Sodium Chloride 1 GM Tablet PO ×3 (06:34→20:24)
[2024-01-29] MEDS: Nystatin Powder 15gm Bottle 1 APPLIC TOPICAL ×2 (06:34→20:32)
[2024-01-29] MEDS: Finasteride 5 MG Tablet PO (09:19)
[2024-01-29] MEDS: Pantoprazole Sodium 40 MG Tablet PO (09:20)
[2024-01-29] MEDS: Senna/Docusate Sodium 1 Tablet 2 TABLET PO (09:20)
[2024-01-29] MEDS: Furosemide 40 MG Tablet 60 MG PO (09:21)
[2024-01-29] MEDS: Pramipexole Di-HCl 0.5 MG Tablet PO (09:21)
[2024-01-29] MEDS: DULoxetine Hcl 20 MG Capsule PO (09:21)
[2024-01-29] MEDS: Potassium Chloride Oral Tablet 20 MEQ PO (09:21)
[2024-01-29] MEDS: Polyethylene Glycol 3350 17 GM PACKET PO (09:22)
[2024-01-29] MEDS: Gabapentin 100 MG Capsule PO ×2 (09:29→17:08)
[2024-01-29] MEDS: Umeclidinium Bromide Inhaler 1 PUFF INHALATION (09:30)
[2024-01-29] MEDS: Fluticasone/Salmeterol 232-14 Inhaler 1 PUFF INHALATION ×2 (09:30→20:24)
--- NOTE | 2024-01-29 10:08 | PCM.PROGNOTE ---
Subjective Subjective Afebrile VSS -BP is better with discontinuation of metoprolol. Heart rate ranges from 71-76. Maintaining appropriate oxygen saturation on RA Oral intake - FOOD excellent FLUIDS good. Fluid balance yesterday was +570. Has reddened area on buttocks. Refused to turn on side when nursing offered to offload the buttocks. Reviewed the THERAPY notes Medication list reviewed. He tells me that the back pain is better at night with the addition of Gabapentin to the drug regimen. Denies daytime drowsiness. No pain radiating into the legs. No knee pain. Denies nausea/vomiting/epigastric pain, dysuria and calf pain. Objective Data Objective Data Vital Signs: Vital Signs Temp Pulse Resp BP Pulse Ox O2 Del Method 98.0 F 76 18 109/63 91 Room Air 01/29/24 06:00 01/29/24 06:00 01/29/24 06:00 01/29/24 06:00 01/29/24 06:00 01/29/24 06:00 Oxygen Delivery Method Room Air Weight: 180 lb 8.937 oz Body Mass Index (BMI) 25.2 Intake & Output: Intake and Output for Last 24 Hours 01/27/24 01/28/24 01/29/24 23:59 23:59 23:59 Intake Total 1470 / 1470 1620 / 1620 60 / 60 Output Total 825 / 825 1050 / 1050 100 / 100 Balance 645 / 645 570 / 570 -40 / -40 Lab / Micro Data 01/30/24 05:51 01/30/24 05:51 Labs: Laboratory Results - last 24 hr 01/27/24 05:05: Cycl Citrul Peptide IgG 16 Micro: Microbiology 01/28/24 08:10 Stool Stool Occult Blood (ASHIA) - Final Occult Blood Positive Physical Exam Const alert, oriented x3 and no apparent distress Constitutional Narrative: appropriate General Appearance: cooperative HEENT Mouth: dry mucous membranes Resp normal respiratory effort Resp Narrative: better air exchange in the upper lobes but, still significantly diminished in the bases. Auscultation: diminished lung sounds Cardio regular rate, regular rhythm, no rub and no gallops Cardio Narrative: Heart sounds are distant. GI normal to inspection, nondistended, normoactive bowel sounds, soft to palpation and non-tender Skin Rashes: no rashes Wound Narrative: He has a few small stage 2 decubitus ulcers on the backside.....in the gluteal cleft and adjacent to it. He has a padded dressing in place to cut down on friction. Neuro CN's II-XII intact bilaterally Psych Psych Narrative: more conversant and not as flat. Assessment & Plan Assessment/Plan (1) Physical debility: (2) Fall: QUALIFIERS: Encounter type: subsequent encounter Qualified Code(s): W19.XXXD - Unspecified fall, subsequent encounter (3) Bilateral knee pain: QUALIFIERS: Chronicity: acute Qualified Code(s): M25.561 - Pain in right knee; M25.562 - Pain in left knee (4) Inability to ambulate due to knee: (5) Closed fracture of tibial plateau: QUALIFIERS: Encounter type: subsequent encounter Laterality: right (6) Acute exacerbation of CHF (congestive heart failure): (7) (HFpEF) heart failure with preserved ejection fraction: (8) Bilateral pleural effusion: (9) Macrocytic anemia: (10) Lupus (systemic lupus erythematosus): QUALIFIERS: Systemic lupus erythematosus type: unspecified Systemic lupus erythematosus organ involvement: lung involvement Qualified Code(s): M32.13 - Lung involvement in systemic lupus erythematosus PLAN: Plan 1. Continue therapy 2. Check a CBC, BMP and magnesium in the AM. 3. Will follow up with rheumatology at [place] for suspected Lupus. Referred to the [place] [facility]. 4. Needs a DEXA as an OP Charges/Coding Visit Charges Inpatient E&M: 68019 Subs Hosp L1
[2024-01-29] MEDS: Primidone 50 MG Tablet PO ×2 (10:55→20:24)
[2024-01-29] MEDS: Ferrous Sulfate 325 MG Tablet PO (10:56)
[2024-01-29] MEDS: Ascorbic Acid 500 MG Tablet 1000 MG PO (10:56)
[2024-01-29] MEDS: Celecoxib 100 MG Capsule PO (10:57)
[2024-01-29] MEDS: 0.9% Saline Lock 10 ML Syringe IV ×2 (10:59→21:32)
[2024-01-29 17:55] VITALS: BP 100/59; PULSE 76; RESP 15; TEMP 36.4; O2SAT 98
[2024-01-29] MEDS: Gabapentin 300 MG Capsule PO (19:52)
[2024-01-29 20:20] VITALS: PULSE 76; RESP 15; O2SAT 98
[2024-01-29] MEDS: Atorvastatin Calcium 80 MG Tablet PO (20:24)
[2024-01-29] MEDS: MELATONIN 3 MG TABLET PO (21:31)
[2024-01-30 06:00] VITALS: BP 107/58; PULSE 72; RESP 16; TEMP 37.1; O2SAT 94; BMI 25.2
[2024-01-30 06:13] LABS: Absolute Lymphocyte Count 1.98 X10^3/uL (0.83-4.51); Absolute Neutrophil Count 2.1 X10^3/uL (2.0-7.7); Basophil# 0.01 X10^3/uL; Basophil% 0.2 % (0-1); Eosinophil# 0.21 X10^3/uL; Eosinophils% 4.2 % (0-5); Hematocrit 29.4 % (40-54); Hemoglobin 10.1 g/dL (13.0-16.5); Lymphocyte # 1.98 X10^3/ul (0.83-4.51); Lymphocyte % 39.8 % (19-41); Mean Corp Hgb Conc 34.4 g/dL (32-36); Mean Corpuscular Hgb 35.8 pg (27.0-32.0); Mean Corpuscular Volume 104.3 fL (80-94); Mean Platelet Vol. 11.3 fl (6.2-12.0); Monocyte# 0.68 X10^3/uL; Monocyte% 13.7 % (0-10); NRBC Flagged by Analyzer 0 % (0-5); Neutrophil # 2.09 X10^3/uL (2.7-7.7); Neutrophil % 41.9 % (47-70); Platelet Count 124 K/mm3 (150-450); RBC Distribution Width CV 14.5 % (11.6-14.6); RBC Distribution Width SD 55.3 fl (35.1-43.9); Red Blood Count 2.82 M/mm3 (4.6-6.2)
[2024-01-30 06:30] LABS: Anion Gap 5 (5-15); BUN 21 mg/dL (7-18); BUN/Creat Ratio 20.8 RATIO (10-20); Calcium,Total 8.2 mg/dL (8.5-10.1); Chloride 101 mmol/L (98-107); Creatinine, Serum 1.01 mg/dL (0.70-1.30); EST Glomerular Filtration Rate 75 mL/min (>60); Est Glom Filt Rate - Afr Amer 91 mL/min (>60); Estimated Creatinine Clearance 60.06 ml/min; Glucose 103 mg/dL (74-106); Magnesium 2.1 mg/dL (1.6-2.6); Potassium 3.5 mmol/L (3.5-5.1); Sodium Level 132 mmol/L (136-145)
[2024-01-30] MEDS: Enoxaparin 40 MG/0.4 ML Syringe SC (06:33)
[2024-01-30] MEDS: Sodium Chloride 1 GM Tablet PO ×3 (06:33→21:02)
[2024-01-30] MEDS: Umeclidinium Bromide Inhaler 1 PUFF INHALATION (08:04)
[2024-01-30] MEDS: Fluticasone/Salmeterol 232-14 Inhaler 1 PUFF INHALATION ×2 (08:04→21:02)
[2024-01-30] MEDS: Menthol/Lanolin/Calamine/Znox 113 GM Tube 1 APPLIC TOPICAL (08:05)
[2024-01-30] MEDS: Nystatin Powder 15gm Bottle 1 APPLIC TOPICAL (08:06)
[2024-01-30] MEDS: Furosemide 40 MG Tablet 60 MG PO (08:08)
[2024-01-30] MEDS: Pramipexole Di-HCl 0.5 MG Tablet PO (08:08)
[2024-01-30] MEDS: Finasteride 5 MG Tablet PO (08:08)
[2024-01-30] MEDS: Senna/Docusate Sodium 1 Tablet 2 TABLET PO (08:08)
[2024-01-30] MEDS: Primidone 50 MG Tablet PO ×2 (08:09→21:04)
[2024-01-30] MEDS: Pantoprazole Sodium 40 MG Tablet PO (08:09)
[2024-01-30] MEDS: Gabapentin 100 MG Capsule PO ×2 (08:09→16:19)
[2024-01-30] MEDS: Potassium Chloride Oral Tablet 20 MEQ PO (08:09)
[2024-01-30] MEDS: DULoxetine Hcl 20 MG Capsule PO (08:10)
--- NOTE | 2024-01-30 10:08 | PN_ITS ---
Subjective Subjective Afebrile VSS - Maintaining appropriate oxygen saturation on RA Oral intake - FOOD good FLUIDS fair...He is c/o not being able to drink due to fluid restriction but, he is on 1500 cc fluid restriction and he only had 1080 yesterday. Discussed with nursing - no problems that need addressed Reviewed the THERAPY notes Medication list reviewed. All lab from this morning was personally reviewed. White blood cell count is 5 and hemoglobin is 10.1, down from 10.5 on 01/27/2024 however he is drinking better. Platelets are low at 124,000 but have been consistently above 100,000. Sodium is stable at 132. The potassium is 3.5 today. Serum bicarb is normal at 26. The BUN is stable at 21 and creatinine is stable at 1.01. Calcium corrected for hypoalbuminemia is within normal limits and the magnesium is 2.1. He is c/o restless leg at night. Iron studies in September of this year were not consistent with iron deficiency. He has no hx of sleep apnea. Back pain is better with the Gabapentin. Denies radicular pain into the legs. No hang over in the AM from Gabapentin. He denies any knee pain and is progressing well in therapy. Objective Data Objective Data Vital Signs: Vital Signs Temp Pulse Resp BP Pulse Ox O2 Del Method 98.7 F 72 16 107/58 L 94 Room Air 01/30/24 06:00 01/30/24 06:00 01/30/24 06:00 01/30/24 06:00 01/30/24 06:00 01/30/24 06:00 Oxygen Delivery Method Room Air Weight: 180 lb 8.937 oz Body Mass Index (BMI) 25.2 Intake & Output: Intake and Output for Last 24 Hours 01/28/24 01/29/24 01/30/24 23:59 23:59 23:59 Intake Total 1620 / 1620 1080 / 1080 100 / 100 Output Total 1050 / 1050 950 / 950 300 / 300 Balance 570 / 570 130 / 130 -200 / -200 Lab / Micro Data 01/30/24 05:51 01/30/24 05:51 Labs: Laboratory Results - last 24 hr 01/30/24 05:51: WBC 5.0, RBC 2.82 L, Hgb 10.1 L, Hct 29.4 L, MCV 104.3 H, MCH 35.8 H, MCHC 34.4, RDW Std Deviation 55.3 H, RDW Coeff of Eleanor 14.5, Plt Count 124 L, MPV 11.3, Immature Gran % (Auto) 0.200, Neut % (Auto) 41.9 L, Lymph % (Auto) 39.8, Ogle % (Auto) 13.7 H, Eos % (Auto) 4.2, Baso % (Auto) 0.2, Absolute Neuts (auto) 2.1, Absolute Lymphs (auto) 1.98, Nucleated RBC % 0, Sodium 132 L, Potassium 3.5, Chloride 101, Carbon Dioxide 26.0, Anion Gap 5, BUN 21 H, Creatinine 1.01, Estim Creat Clear Calc 60.06, Est GFR (MDRD) Af Amer 91, Est GFR (MDRD) Non-Af 75, BUN/Creatinine Ratio 20.8 H, Glucose 103, Calcium 8.2 L, Magnesium 2.1 Micro: Microbiology 01/28/24 08:10 Stool Stool Occult Blood (ASHIA) - Final Occult Blood Positive Physical Exam Const alert, oriented x3 and no apparent distress Constitutional Narrative: appropriate General Appearance: cooperative HEENT Mouth: dry mucous membranes Resp normal respiratory effort Resp Narrative: better air exchange in the upper lobes but, still significantly diminished in the bases. Auscultation: diminished lung sounds Cardio regular rate, regular rhythm, no rub and no gallops Cardio Narrative: Heart sounds are distant. GI normal to inspection, nondistended, normoactive bowel sounds, soft to palpation and non-tender Skin Rashes: no rashes Wound Narrative: He has a few small stage 2 decubitus ulcers on the backside.....in the gluteal cleft and adjacent to it. He has a padded dressing in place to cut down on friction. Neuro CN's II-XII intact bilaterally Psych Psych Narrative: more conversant and not as flat. Assessment & Plan Assessment/Plan (1) Physical debility: (2) Fall: QUALIFIERS: Encounter type: subsequent encounter Qualified Code(s): W19.XXXD - Unspecified fall, subsequent encounter (3) Bilateral knee pain: QUALIFIERS: Chronicity: acute Qualified Code(s): M25.561 - Pain in right knee; M25.562 - Pain in left knee (4) Inability to ambulate due to knee: (5) Closed fracture of tibial plateau: QUALIFIERS: Encounter type: subsequent encounter Laterality: r ight (6) Acute exacerbation of CHF (congestive heart failure): (7) (HFpEF) heart failure with preserved ejection fraction: PLAN: I am not sure he has CHF. The pleural effusions may be due to SLE. The peripheral edema is much better than at admission to rehab and he is stable on 60 mg daily of Lasix. There was no pericardial effusion mentioned on the most recent ECHO. (8) Bilateral pleural effusion: PLAN: Etiology? CHF vs serositis due to SLE? (9) Macrocytic anemia: (10) Lupus (systemic lupus erythematosus): QUALIFIERS: Systemic lupus erythematosus type: unspecified S ystemic lupus erythematosus organ involvement: lung involvement Qualified Code(s): M32.13 - Lung involvement in systemic lupus erythematosus PLAN: He has an appt scheduled with the [place] [facility] on Mar 23. PLAN: Plan 1. Continue therapy 2. Start prednisone 40 mg daily x 3 days, then 20 mg daily x 3 days and then 10 mg daily x 4 days. 3. Recheck a CBC, magnesium, BNP and a BMP on Friday 4. Increase Cymbalta to 30 mg daily. 5. Overnight trending pulse ox for complaint of restless legs 6. Increase gabapentin at night to 400 mg. 7. check an iron panel. 8. DEXA post DC. Charges/Coding Visit Charges Inpatient E&M: 67475 Subs Hosp L1
[2024-01-30] MEDS: Celecoxib 100 MG Capsule PO (11:48)
[2024-01-30] MEDS: Ferrous Sulfate 325 MG Tablet PO (11:49)
[2024-01-30] MEDS: Ascorbic Acid 500 MG Tablet 1000 MG PO (11:49)
[2024-01-30 13:05] LABS: Ferritin 343 ng/mL (26-388); Iron 66 ug/dL (65-175); Iron Binding Capacity,Total 224 ug/dL (250-450); PERCENT IRON SATURATION 29.5 % (15.0-55.0)
[2024-01-30] MEDS: predniSONE 20 MG Tablet PO (13:06)
[2024-01-30] MEDS: 0.9% Saline Lock 10 ML Syringe IV ×2 (16:19→22:20)
[2024-01-30 17:30] VITALS: BP 120/71; PULSE 74; RESP 16; TEMP 37.1; O2SAT 95
[2024-01-30] MEDS: Gabapentin 300 MG Capsule PO (20:14)
[2024-01-30 21:00] VITALS: PULSE 74; RESP 16; O2SAT 95
[2024-01-30] MEDS: MELATONIN 3 MG TABLET PO (21:02)
[2024-01-30] MEDS: Atorvastatin Calcium 80 MG Tablet PO (21:03)
[2024-01-30 21:39] VITALS: PULSE 75; O2SAT 94
[2024-01-30] MEDS: oxyCODONE 5 MG Tablet PO (22:31)
[2024-01-31 06:00] VITALS: BP 115/70; PULSE 84; RESP 18; TEMP 36.4; O2SAT 92; BMI 25.6
[2024-01-31] MEDS: Sodium Chloride 1 GM Tablet PO ×3 (06:36→20:31)
[2024-01-31] MEDS: Enoxaparin 40 MG/0.4 ML Syringe SC (06:36)
[2024-01-31] MEDS: Umeclidinium Bromide Inhaler 1 PUFF INHALATION (08:55)
[2024-01-31] MEDS: Furosemide 40 MG Tablet 60 MG PO (08:55)
[2024-01-31] MEDS: Fluticasone/Salmeterol 232-14 Inhaler 1 PUFF INHALATION ×2 (08:55→20:32)
[2024-01-31] MEDS: Pantoprazole Sodium 40 MG Tablet PO (08:56)
[2024-01-31] MEDS: predniSONE 20 MG Tablet PO (08:56)
[2024-01-31] MEDS: Potassium Chloride Oral Tablet 20 MEQ PO (08:56)
[2024-01-31] MEDS: Primidone 50 MG Tablet PO ×2 (08:56→20:30)
[2024-01-31] MEDS: DULoxetine Hcl 30 MG Capsule PO (08:56)
[2024-01-31] MEDS: Finasteride 5 MG Tablet PO (08:57)
[2024-01-31] MEDS: Pramipexole Di-HCl 0.5 MG Tablet PO (08:58)
[2024-01-31] MEDS: Gabapentin 100 MG Capsule PO ×2 (09:01→17:16)
[2024-01-31] MEDS: Ferrous Sulfate 325 MG Tablet PO (11:13)
[2024-01-31] MEDS: Ascorbic Acid 500 MG Tablet 1000 MG PO (11:13)
[2024-01-31] MEDS: Celecoxib 100 MG Capsule PO (11:13)
[2024-01-31 18:00] VITALS: BP 106/59; PULSE 76; RESP 16; TEMP 36.7; O2SAT 97
[2024-01-31 20:29] VITALS: BP 133/74; PULSE 76; RESP 16; TEMP 36.6; O2SAT 97
[2024-01-31] MEDS: Senna/Docusate Sodium 1 Tablet 2 TABLET PO (20:30)
[2024-01-31] MEDS: Gabapentin 300 MG Capsule PO (20:31)
[2024-01-31] MEDS: Atorvastatin Calcium 80 MG Tablet PO (20:31)
[2024-01-31] MEDS: Menthol/Lanolin/Calamine/Znox 113 GM Tube 1 APPLIC TOPICAL (20:31)
[2024-01-31] MEDS: Nystatin Powder 15gm Bottle 1 APPLIC TOPICAL (20:32)
[2024-02-01] MEDS: oxyCODONE 5 MG Tablet PO (03:43)
[2024-02-01] MEDS: Enoxaparin 40 MG/0.4 ML Syringe SC (05:50)
[2024-02-01] MEDS: Sodium Chloride 1 GM Tablet PO ×3 (05:51→20:12)
[2024-02-01 05:52] VITALS: BP 105/56; PULSE 73; RESP 16; TEMP 36.8; O2SAT 95
[2024-02-01] MEDS: Potassium Chloride Oral Tablet 20 MEQ PO (08:27)
[2024-02-01] MEDS: Gabapentin 100 MG Capsule PO ×4 (08:27→20:11)
[2024-02-01] MEDS: predniSONE 20 MG Tablet PO (08:28)
[2024-02-01] MEDS: Fluticasone/Salmeterol 232-14 Inhaler 1 PUFF INHALATION ×2 (08:28→20:10)
[2024-02-01] MEDS: DULoxetine Hcl 30 MG Capsule PO (08:28)
[2024-02-01] MEDS: Furosemide 40 MG Tablet 60 MG PO (08:29)
[2024-02-01] MEDS: Pantoprazole Sodium 40 MG Tablet PO (08:31)
[2024-02-01] MEDS: Finasteride 5 MG Tablet PO (08:32)
[2024-02-01] MEDS: Pramipexole Di-HCl 0.5 MG Tablet PO (08:33)
[2024-02-01] MEDS: Primidone 50 MG Tablet PO ×2 (08:33→20:12)
[2024-02-01] MEDS: Umeclidinium Bromide Inhaler 1 PUFF INHALATION (08:36)
[2024-02-01] MEDS: Polyethylene Glycol 3350 17 GM PACKET PO ×2 (08:38→20:11)
[2024-02-01] MEDS: Senna/Docusate Sodium 1 Tablet 2 TABLET PO ×2 (08:38→20:11)
[2024-02-01 09:00] VITALS: BMI 25.7
[2024-02-01] MEDS: Celecoxib 100 MG Capsule PO (12:13)
[2024-02-01] MEDS: Ferrous Sulfate 325 MG Tablet PO (12:13)
[2024-02-01] MEDS: Ascorbic Acid 500 MG Tablet 1000 MG PO (12:13)
[2024-02-01 18:00] VITALS: BP 124/74; PULSE 77; RESP 16; TEMP 36.7; O2SAT 96
[2024-02-01] MEDS: Atorvastatin Calcium 80 MG Tablet PO (20:11)
[2024-02-01] MEDS: Menthol/Lanolin/Calamine/Znox 113 GM Tube 1 APPLIC TOPICAL (20:12)
[2024-02-01] MEDS: Gabapentin 300 MG Capsule PO (22:54)
[2024-02-02] MEDS: Enoxaparin 40 MG/0.4 ML Syringe SC (05:28)
[2024-02-02 06:00] VITALS: BP 121/68; PULSE 80; RESP 17; TEMP 36.4; O2SAT 95
[2024-02-02] MEDS: Gabapentin 100 MG Capsule PO (06:59)
[2024-02-02] MEDS: Sodium Chloride 1 GM Tablet PO ×3 (06:59→21:30)
[2024-02-02] MEDS: Furosemide 40 MG Tablet 60 MG PO (08:03)
[2024-02-02] MEDS: Finasteride 5 MG Tablet PO (08:03)
[2024-02-02] MEDS: predniSONE 20 MG Tablet PO (08:03)
[2024-02-02] MEDS: Primidone 50 MG Tablet PO ×2 (08:03→21:30)
[2024-02-02] MEDS: Pantoprazole Sodium 40 MG Tablet PO (08:04)
[2024-02-02] MEDS: Potassium Chloride Oral Tablet 20 MEQ PO (08:04)
[2024-02-02] MEDS: Fluticasone/Salmeterol 232-14 Inhaler 1 PUFF INHALATION ×2 (08:04→21:30)
[2024-02-02] MEDS: Umeclidinium Bromide Inhaler 1 PUFF INHALATION (08:04)
[2024-02-02] MEDS: Pramipexole Di-HCl 0.5 MG Tablet PO (08:04)
[2024-02-02] MEDS: DULoxetine Hcl 30 MG Capsule PO (08:05)
[2024-02-02] MEDS: Ferrous Sulfate 325 MG Tablet PO (11:37)
[2024-02-02] MEDS: Ascorbic Acid 500 MG Tablet 1000 MG PO (11:37)
[2024-02-02] MEDS: Celecoxib 100 MG Capsule PO (11:37)
--- NOTE | 2024-02-02 12:10 | PN_ITS ---
Subjective Subjective Reagan was seen on TEAM rounds today. No family was available to participate. Afebrile VSS - Maintaining appropriate oxygen saturation on RA Oral intake - FOOD good FLUIDS good Discussed with nursing - no problems that need addressed Reviewed the THERAPY notes Medication list reviewed. He is c/o some soreness in his gum today. There is a small area of redness on the gum......no exudate.Denies painful swallowing and it is only involving one area. Likely due to irritation from the denture. Recommended he keep his dentures out for 24-48 H and eat soft foods. If it gets worse consider Nystatin for possible thrush. Reagan tells me the chronic back pain is good today. Has been on Prednisone taper that started Friday. Denies SOB today. Still c/o restless leg at night. Denies pain in his knees. Objective Data Objective Data Vital Signs: Vital Signs Temp Pulse Resp BP Pulse Ox O2 Del Method O2 Flow Rate 97.6 F L 80 17 121/68 H 95 Room Air 0 02/02/24 06:00 02/02/24 06:00 02/02/24 06:00 02/02/24 06:00 02/02/24 06:00 02/02/24 06:00 01/30/24 21:39 FiO2 21 01/30/24 21:39 Oxygen Flow Rate (L/min) 0 Oxygen Delivery Method Room Air Weight: 185 lb Body Mass Index (BMI) 25.7 Intake & Output: Intake and Output for Last 24 Hours 01/31/24 02/01/24 02/02/24 23:59 23:59 23:59 Intake Total 1150 / 1550 1695 / 1695 360 / 360 Output Total 1300 / 1550 1800 / 1800 750 / 750 Balance -150 / 0 -105 / -105 -390 / -390 Lab / Micro Data 01/30/24 05:51 01/30/24 05:51 Micro: Microbiology 01/28/24 08:10 Stool Stool Occult Blood (ASHIA) - Final Occult Blood Positive Physical Exam Const alert and no apparent distress General Appearance: cooperative Resp clear to auscultation bilaterally Auscultation: diminished lung sounds Cardio regular rate, regular rhythm and no gallops GI normal to inspection, nondistended, normoactive bowel sounds, soft to palpation and non-tender Extremity no calf tenderness General Extremity: edema bilateral (Much better than at admission. Has lost 7-8 lbs since arriving on rehab. ) Skin Skin Narrative: Has stage 1 and 2 decubitus ulcers on Backside but, refuses to turn from side to side at night. Rashes: no rashes Assessment & Plan Assessment/Plan (1) Physical debility: (2) Fall: QUALIFIERS: Encounter type: subsequent encounter Qualified Code(s): W19.XXXD - Unspecified fall, subsequent encounter (3) Bilateral knee pain: QUALIFIERS: Chronicity: acute Qualified Code(s): M25.561 - Pain in right knee; M25.562 - Pain in left knee (4) Inability to ambulate due to knee: (5) Closed fracture of tibial plateau: QUALIFIERS: Encounter type: subsequent encounter Laterality: r ight (6) Acute exacerbation of CHF (congestive heart failure): (7) (HFpEF) heart failure with preserved ejection fraction: (8) Bilateral pleural effusion: (9) Macrocytic anemia: (10) Lupus (systemic lupus erythematosus): QUALIFIERS: Systemic lupus erythematosus type: unspecified S ystemic lupus erythematosus organ involvement: lung involvement Qualified Code(s): M32.13 - Lung involvement in systemic lupus erythematosus (11) Decubitus ulcer: QUALIFIERS: Pressure injury location: buttock Pressure injury stage: stage 2 Laterality: right Qualified Code(s): L89.312 - Pressure ulcer of right buttock, stage 2 PLAN: Refuses to offload and turn from side to side at night. The area is covered with a padded dressing and he is getting Calmoseptine. PLAN: Plan 1. Continue therapy 2. Leave dentures out for the next 24-48 hours and eat soft foods. If the pain increases or does not resolve consider Nystatin for possible thrush. 3. Continue the steroid taper at DC. 4. Increase the Gabapentin to 300 mg at HS for RLS 5. Lab ordered for tomorrow. Very curious to see if the PLT's normalized with Prednisone. 6. Has appt with [facility] in March to be evaluated for SLE. Charges/Coding Visit Charges Inpatient E&M: 73620 Subs Hosp L1
--- NOTE | 2024-02-02 12:58 | CASEMGMT ---
Addendum entered by Kiersten Obrien 02/03/24 17:36: SW phoned at 0900 to inquire about skilled HHC agency preference. stated pt participated in therapy at [facility]. SW educated to that being an inpatient SNF stay, and the difference of skilled HHC at [place] from . stated she would speak with pt for preferences and notify this worker. -- SW phoned at 1730 to f/u on HHC agency. stated she has not been able to speak with pt yet, but will continue trying this evening. SW encouraged to continuing attempting to call pt, and can call nurse's station to get connected, as this worker will need HHC referral completed tomorrow for pt's DC. expressed understanding. SW will continue to follow for HHC referral. Original Note: Social Work IDT met with patient for Team meeting. Attempted to phone but no answer. Discussed patient's progress in PT/OT/ST/SN. Educated to Medicare DC 02/03. No issues noted. Pt will return home with and dtr, though, neither can assist pt. Dtr will transport pt at [place] at 1600. Pt agreeable to [facility]. SW provided list of skilled HHC agencies with quality and resource data via [employer] Guide for pt to select preferences. No DME needs. Plan: DC home with and dtr 02/03, [facility] PT/OT/SN FLO [place]
[2024-02-02 17:45] VITALS: BP 121/73; PULSE 70; RESP 17; TEMP 37; O2SAT 97
[2024-02-02] MEDS: Gabapentin 300 MG Capsule PO (19:58)
[2024-02-02 21:25] VITALS: PULSE 70; RESP 17; O2SAT 97
[2024-02-02] MEDS: Atorvastatin Calcium 80 MG Tablet PO (21:30)
[2024-02-02] MEDS: MELATONIN 3 MG TABLET PO (21:30)
[2024-02-02] MEDS: Senna/Docusate Sodium 1 Tablet 2 TABLET PO (21:32)
[2024-02-02 22:20] VITALS: BMI 24.8
--- NOTE | 2024-02-03 02:37 | NURSING ---
REVIEWED AND AGREE WITH Mariela WHITLEY, DOCUMENTATION AND ASSESSMENT CHARTING.
[2024-02-03] MEDS: Menthol/Lanolin/Calamine/Znox 113 GM Tube 1 APPLIC TOPICAL (05:17)
[2024-02-03] MEDS: Sodium Chloride 1 GM Tablet PO ×3 (05:17→21:45)
[2024-02-03] MEDS: Enoxaparin 40 MG/0.4 ML Syringe SC (05:17)
[2024-02-03] MEDS: Nystatin Powder 15gm Bottle 1 APPLIC TOPICAL (05:18)
[2024-02-03 05:23] VITALS: BP 102/61; PULSE 77; RESP 16; TEMP 37; O2SAT 93
[2024-02-03 05:27] LABS: Hematocrit 30.7 % (40-54); Hemoglobin 10.5 g/dL (13.0-16.5); Mean Corp Hgb Conc 34.2 g/dL (32-36); Mean Corpuscular Hgb 35.4 pg (27.0-32.0); Mean Corpuscular Volume 103.4 fL (80-94); Mean Platelet Vol. 11.2 fl (6.2-12.0); POSITIVE COUNT YES; RBC Distribution Width CV 14.7 % (11.6-14.6); RBC Distribution Width SD 55.9 fl (35.1-43.9); Red Blood Count 2.97 M/mm3 (4.6-6.2); White Blood Count 9.1 K/mm3 (4.4-11.0)
[2024-02-03 06:30] VITALS: O2SAT 98
[2024-02-03 06:36] LABS: Anion Gap 5 (5-15); BUN 24 mg/dL (7-18); Calcium,Total 8.4 mg/dL (8.5-10.1); Chloride 98 mmol/L (98-107); Creatinine, Serum 0.96 mg/dL (0.70-1.30); EST Glomerular Filtration Rate 80 mL/min (>60); Est Glom Filt Rate - Afr Amer 96 mL/min (>60); Estimated Creatinine Clearance 63.19 ml/min; Glucose 102 mg/dL (74-106); Magnesium 1.9 mg/dL (1.6-2.6); Sodium Level 132 mmol/L (136-145)
[2024-02-03 07:31] LABS: BNP,B-Type NATRIURETIC PEPTIDE 230.5 pg/mL (0-100)
[2024-02-03 07:38] LABS: Differential Comment SCANNED; Platelet Count 113 K/mm3 (150-450); Scan Indicated on CBC? Y/N YES- FLAGS NOTED
[2024-02-03] MEDS: Gabapentin 100 MG Capsule PO ×2 (08:26→17:23)
[2024-02-03] MEDS: Potassium Chloride Oral Tablet 20 MEQ PO (08:26)
[2024-02-03] MEDS: predniSONE 20 MG Tablet PO (08:27)
--- NOTE | 2024-02-03 09:27 | DS.PCM_ITS ---
Providers Date of Admission: 01/21/24 Primary Care Physician: Dr. Casey Martinez MD Reason For Visit: R KNEE FRACTURE Diagnosis Discharge Diagnosis (1) Physical debility: Status: Acute Code(s): R53.81 - Other malaise (2) Fall: Status: Acute Code(s): W19.XXXA - Unspecified fall, initial encounter Qualifiers: Encounter type: subsequent encounter Qualified Code(s): W19.XXXD - Unspecified fall, subsequent encounter (3) Bilateral knee pain: Status: Acute Code(s): M25.561 - Pain in right knee; M25.562 - Pain in left knee Qualifiers: Chronicity: acute Qualified Code(s): M25.561 - Pain in right knee; M25.562 - Pain in left knee (4) Inability to ambulate due to knee: Status: Acute Code(s): R26.2 - Difficulty in walking, not elsewhere classified (5) Closed fracture of tibial plateau: Status: Acute Code(s): S82.143A - Displaced bicondylar fracture of unspecified tibia, initial encounter for closed fracture Qualifiers: Encounter type: subsequent encounter Laterality: right (6) Acute exacerbation of CHF (congestive heart failure): Status: Resolved Code(s): I50.9 - Heart failure, unspecified (7) (HFpEF) heart failure with preserved ejection fraction: Status: Acute Code(s): I50.30 - Unspecified diastolic (congestive) heart failure (8) Bilateral pleural effusion: Status: Inactive Code(s): J90 - Pleural effusion, not elsewhere classified (9) Macrocytic anemia: Status: Acute Code(s): D53.9 - Nutritional anemia, unspecified (10) Lupus (systemic lupus erythematosus): Status: Suspected Code(s): M32.9 - Systemic lupus erythematosus, unspecified Qualifiers: Systemic lupus erythematosus type: unspecified Systemic lupus erythematosus organ involvement: lung involvement Qualified Code(s): M32.13 - Lung involvement in systemic lupus erythematosus (11) Decubitus ulcer: Status: Acute Code(s): L89.90 - Pressure ulcer of unspecified site, unspecified stage Qualifiers: Pressure injury location: buttock Pressure injury stage: stage 2 L aterality: right Qualified Code(s): L89.312 - Pressure ulcer of right buttock, stage 2 Medications at Discharge Home Medications tamsulosin 0.4 mg capsule 0.4 mg PO DAILY PROSTATE 08/02/22 ferrous sulfate 325 mg (65 mg iron) tablet 325 mg PO DAILY SUPPLEMENT 08/06/23 pramipexole 0.5 mg tablet 0.5 mg PO DAILY P[place]INSONS 08/06/23 primidone 50 mg tablet 50 mg PO BID SEIZURES 08/06/23 melatonin 3 mg tablet 3 mg PO QHS PRN PRN Insomnia #0 tabs 08/14/23 atorvastatin 80 mg tablet 80 mg PO QHS cholesterol 12/31/23 finasteride 5 mg tablet 5 mg PO DAILY prostate 12/31/23 potassium chloride 20 mEq tablet,extended release 20 meq PO DAILY supplement 12/31/23 dutasteride 0.5 mg capsule 0.5 mg PO DAILY prostate 01/16/24 fluticasone fur. 200 mcg-umeclid 62.5 mcg-vilant 25 mcg inhalat.powder (Trelegy Ellipta) 1 ea inhalation DAILY breathing 01/16/24 ascorbic acid (vitamin C) 1,000 mg tablet,extended release (Vitamin C ER) 1,000 mg PO DAILY supplement 01/21/24 celecoxib 100 mg capsule 100 mg PO LUNCH 30 days #30 caps 02/03/24 duloxetine 30 mg capsule,delayed release 30 mg PO DAILY 30 days #30 caps 02/03/24 furosemide 40 mg tablet 60 mg (1.5 x 40 mg) PO DAILY 30 days #45 tabs 02/03/24 gabapentin 100 mg capsule 100 mg PO BIDCM 30 days #60 caps 02/03/24 gabapentin 300 mg capsule 300 mg PO 2100 30 days #30 caps 02/03/24 pantoprazole 40 mg tablet,delayed release 40 mg PO DAILY 30 days #30 tabs 02/03/24 sennosides 8.6 mg-docusate sodium 50 mg tablet (Stimulant Laxative Plus) 2 tab PO BID 30 days #120 tabs 02/03/24 sodium chloride 1,000 mg soluble tablet 1,000 mg PO TID 30 days #90 tabs 02/03/24 Hospital Course Operations None Procedures None Summary of Care Provided Minutes Spent on Discharge: 35 Hospital Course: 83 year old male with below past medical history hospitalized for right knee fracture, admitted to with debility, here for 3 hours daily rehabilitation, strengthening, prior to discharge home with . Discharge home with and daughter 02/04/2024, [facility] PT/OT/SN. Physical Exam Const alert General Appearance: cooperative HEENT normocephalic Eyes PERRL and EOMs intact bilaterally Neck supple, no JVD and no carotid bruits Resp normal respiratory effort, normal air movement and clear to auscultation bilaterally Cardio regular rate and regular rhythm GI normal to inspection, nondistended, normoactive bowel sounds, non-tender and non-distended Extremity normal capillary refill General Extremity: Negative for edema Skin no rashes or lesions noted General Skin Exam: no breakdown Psych affect normal Appearance: appropriate Weight / BMI Weight Weight: 80.739 kg Body Mass Index (BMI) 24.8 ABG / Lab / Microbiology Data 02/03/24 05:09 02/03/24 05:09 Laboratory: Laboratory Results - last 24 hr 02/03/24 05:09: WBC 9.1, RBC 2.97 L, Hgb 10.5 L, Hct 30.7 L, MCV 103.4 H, MCH 35.4 H, MCHC 34.2, RDW Std Deviation 55.9 H, RDW Coeff of Eleanor 14.7 H, Plt Count 113 L, MPV 11.2, Differential Comment SCANNED, Sodium 132 L, Potassium 4.0, Chloride 98, Carbon Dioxide 29.0, Anion Gap 5, BUN 24 H, Creatinine 0.96, Estim Creat Clear Calc 63.19, Est GFR (MDRD) Af Amer 96, Est GFR (MDRD) Non-Af 80, B UN/Creatinine Ratio 25.0 H, Glucose 102, Calcium 8.4 L, Magnesium 1.9, B- Natriuretic Peptide 230.5 H Microbiology: Microbiology 01/28/24 08:10 Stool Stool Occult Blood (ASHIA) - Final Occult Blood Positive Indicators for Scoring Admitted with or Primary Diagnosis of CVA/Stroke: No Hx of CVA/Stroke: No D/C Instructions Discharge Diet: No restrictions Discharge Activity: Return to Normal Activity, May Shower and Use Walker Weight Bearing Status: Weight bearing as tolerated Call your doctor if you observe: Fever of 101 or Higher, Inability to urinate, Inability to have a bowel movement, Shortness of breath, Dizziness, Fainting spells, Swelling in the ankles, Chest pain and Uncontrolled pain Additional Instructions: Discharge home with and daughter 02/04/2024, [facility] PT/OT/SN. Meaningful Use Info Meaningful Use Meaningful Use Diagnoses (Choose all that apply): None applicable Ischemic Stroke Statin Dosing Therapy Reference: STATIN DOSE THERAPY REFERENCE: * Patients > 75 years receive moderate or high dose statin therapy. * Patients 75 years or YOUNGER should receive HIGH intensity statin dose unless contraindicated. You will be required to document reason for non-treatment if statin daily dose does not meet guidelines. HIGH DOSE STATIN THERAPY DAILY Atorvastatin > than or = to 40 mg Rosuvastatin > than or = to 20 mg Amlodipine + Atorvastatin > than or = to 2.5/40 mg Ezetimibe + Simvastatin 10/80 mg Simvastatin 80mg Discharge Plan Admission Admit Date/Time: 01/21/24 14:23 Primary Reason for Your Visit: Debility. Attending Provider: Cassi Flores Primary Care Provider: Casey Martinez Instructions Additional Instructions / Restrictions: Discharge home with and daughter 02/04/2024, [facility] PT/OT/SN. Discharge Orders/Prescriptions Prescriptions: New furosemide 40 mg Tablet 60 mg PO DAILY 30 Days Qty: 45 0RF pantoprazole 40 mg Tablet,Delayed Release (Dr/Ec) 40 mg PO DAILY 30 Days Qty: 30 0RF gabapentin 300 mg Capsule 300 mg PO 2100 30 Days Qty: 30 0RF gabapentin 100 mg Capsule 100 mg PO BIDCM 30 Days Qty: 60 0RF celecoxib 100 mg Capsule 100 mg PO LUNCH 30 Days Qty: 30 0RF duloxetine 30 mg Capsule,Delayed Release(Dr/Ec) 30 mg PO DAILY 30 Days Qty: 30 0RF sennosides-docusate sodium [Stimulant Laxative Plus] 8.6-50 mg Tablet 2 tab PO BID 30 Days Qty: 120 0RF sodium chloride 1,000 mg Tablet,Soluble 1,000 mg PO TID 30 Days Qty: 90 0RF Continued tamsulosin 0.4 mg capsule 0.4 mg PO DAILY atorvastatin 80 mg tablet 80 mg PO QHS finasteride 5 mg tablet 5 mg PO DAILY potassium chloride 20 mEq tablet extended release 20 meq PO DAILY ferrous sulfate 325 mg (65 mg iron) tablet 325 mg PO DAILY pramipexole 0.5 mg tablet 0.5 mg PO DAILY primidone 50 mg tablet 50 mg PO BID melatonin 3 mg Tablet 3 mg PO QHS PRN PRN (Reason: Insomnia) Qty: 0 0RF Vitamin C 1,000 mg tablet extended release 1,000 mg PO DAILY dutasteride 0.5 mg capsule 0.5 mg PO DAILY Trelegy Ellipta 200-62.5-25 mcg blister with device 1 ea inhalation DAILY Discontinued ondansetron HCl 4 mg tablet 4 mg PO Q8H PRN (Reason: NAUSEA/VOMITING ) Senna Plus 8.6-50 mg capsule 1 tab-cap PO QHS polyethylene glycol 3350 17 gram Powder In Packet 17 g PO BID Qty: 0 0RF pantoprazole [Protonix] 40 mg tablet,delayed release (DR/EC) 40 mg PO DAILY 30 Days Qty: 30 0RF oxycodone 5 mg tablet 5 mg PO Q6H PRN (Reason: pain) acetaminophen 500 mg Tablet 1,000 mg PO Q8 PRN (Reason: fever or pain) furosemide 20 mg Tablet 20 mg PO DAILY Qty: 0 0RF metoprolol succinate 25 mg Tablet Extended Release 24 Hr 12.5 mg PO DAILY Qty: 0 0RF Referrals / Follow Up: [facility], Arthritis [Other] - 03/23/24 1:30 pm (Dr Choudhary) Casey Martinez MD [Primary Care Provider] - 02/20/24 10:00 am Disposition Disposition (needs filled in before D/C Order can be placed): Home Health Service
[2024-02-03] MEDS: Senna/Docusate Sodium 1 Tablet 2 TABLET PO (10:03)
[2024-02-03] MEDS: Furosemide 40 MG Tablet 60 MG PO (10:03)
[2024-02-03] MEDS: Pantoprazole Sodium 40 MG Tablet PO (10:03)
[2024-02-03] MEDS: Fluticasone/Salmeterol 232-14 Inhaler 1 PUFF INHALATION ×2 (10:04→21:45)
[2024-02-03] MEDS: Finasteride 5 MG Tablet PO (10:04)
[2024-02-03] MEDS: Umeclidinium Bromide Inhaler 1 PUFF INHALATION (10:04)
[2024-02-03] MEDS: DULoxetine Hcl 30 MG Capsule PO (10:04)
[2024-02-03] MEDS: Primidone 50 MG Tablet PO ×2 (10:04→21:45)
[2024-02-03] MEDS: Pramipexole Di-HCl 0.5 MG Tablet PO (10:04)
[2024-02-03] MEDS: Ascorbic Acid 500 MG Tablet 1000 MG PO (11:39)
[2024-02-03] MEDS: Celecoxib 100 MG Capsule PO (11:40)
[2024-02-03] MEDS: Ferrous Sulfate 325 MG Tablet PO (11:40)
[2024-02-03] MEDS: oxyCODONE 5 MG Tablet PO (13:32)
[2024-02-03 18:00] VITALS: BP 110/66; PULSE 81; RESP 18; TEMP 36.9; O2SAT 96
[2024-02-03] MEDS: Gabapentin 300 MG Capsule PO (20:24)
[2024-02-03 21:45] VITALS: PULSE 81; RESP 20; O2SAT 96
[2024-02-03] MEDS: Atorvastatin Calcium 80 MG Tablet PO (21:45)
[2024-02-03] MEDS: MELATONIN 3 MG TABLET PO (21:46)
--- NOTE | 2024-02-04 02:23 | NURSING ---
Reviewed and agree with Mariela WHITLEY, documentation and assessment charting.
[2024-02-04 02:25] VITALS: PULSE 78; RESP 16; O2SAT 95
[2024-02-04] MEDS: Ipratropium/Albuterol Sulfate 3 ML AMPUL.NEB INHALATION (02:25)
[2024-02-04] MEDS: Enoxaparin 40 MG/0.4 ML Syringe SC (05:36)
[2024-02-04] MEDS: Sodium Chloride 1 GM Tablet PO ×2 (05:36→13:58)
[2024-02-04] MEDS: Nystatin Powder 15gm Bottle 1 APPLIC TOPICAL (05:37)
[2024-02-04] MEDS: Menthol/Lanolin/Calamine/Znox 113 GM Tube 1 APPLIC TOPICAL (05:40)
[2024-02-04 06:00] VITALS: BP 124/66; PULSE 76; RESP 16; TEMP 37; O2SAT 95; BMI 25.0
--- NOTE | 2024-02-04 07:50 | CASEMGMT ---
Social Work SW phoned pt to follow up on HHC choice. Pt stated he was using [place] therapy prior and does not need additional HHC. SW educated to [facility] and this worker explained that to yesterday as well. Pt stated he has not been able to speak to his yet, but continued to have difficulty with understanding the HHC. SW assisted in educating. Pt reviewed HHC list and chose [facility], but inquired about SOC. SW educated to 48-72 hours after DC. Pt stated that was too soon, and he wouldn't be able to get settled. SW educated that HHC role is to assist with pt getting settled and the tranisiton home. Pt stated, I take back what I said, I don't want it anymore. I can refuse. SW agreed as that is pt's right. SW educated if pt changes his mind at home, to contact his PCP. Pt expressed understanding. Dr. Mayne updated. Kiersten Obrien, [employer]IXER CUTTER MACHINE TENDER
[2024-02-04] MEDS: Fluticasone/Salmeterol 232-14 Inhaler 1 PUFF INHALATION (08:37)
[2024-02-04] MEDS: Umeclidinium Bromide Inhaler 1 PUFF INHALATION (08:37)
[2024-02-04] MEDS: Furosemide 40 MG Tablet 60 MG PO (08:38)
[2024-02-04] MEDS: Primidone 50 MG Tablet PO (08:38)
[2024-02-04] MEDS: Finasteride 5 MG Tablet PO (08:39)
[2024-02-04] MEDS: Potassium Chloride Oral Tablet 20 MEQ PO (08:39)
[2024-02-04] MEDS: Pantoprazole Sodium 40 MG Tablet PO (08:39)
[2024-02-04] MEDS: Pramipexole Di-HCl 0.5 MG Tablet PO (08:39)
[2024-02-04] MEDS: DULoxetine Hcl 30 MG Capsule PO (08:39)
[2024-02-04] MEDS: predniSONE 20 MG Tablet PO (08:40)
[2024-02-04] MEDS: Gabapentin 100 MG Capsule PO ×2 (08:42→17:01)
[2024-02-04] MEDS: Ferrous Sulfate 325 MG Tablet PO (11:43)
[2024-02-04] MEDS: Celecoxib 100 MG Capsule PO (11:43)
[2024-02-04] MEDS: Ascorbic Acid 500 MG Tablet 1000 MG PO (11:43)
[2024-02-04 17:38] VITALS: BP 105/66; PULSE 80; RESP 16; TEMP 37.1; O2SAT 98
--- NOTE | 2024-02-04 17:39 | NURSING ---
discharged home with family. discharge instructions, medication, appointments reviewed with pt and family. denies questions or concerns
== END 2024-02-04 17:40 | disposition home or self-care (01) | DRG 559 ==
PROVIDERS: Admitting Provider Internal Medicine; PCP Family Medicine; Visit Provider Internal Medicine
DX: S82.143D Displaced bicondylar fracture of unspecified tibia, subsequent encounter for closed fracture with routine healing (principal); I50.33 Acute on chronic diastolic (congestive) heart failure; E22.2 Syndrome of inappropriate secretion of antidiuretic hormone; I13.0 Hypertensive heart and chronic kidney disease with heart failure and stage 1 through stage 4 chronic kidney disease, or unspecified chronic kidney disease; J91.8 Pleural effusion in other conditions classified elsewhere; I27.20 Pulmonary hypertension, unspecified; D53.1 Other megaloblastic anemias, not elsewhere classified; D63.8 Anemia in other chronic diseases classified elsewhere; E88.09 Other disorders of plasma-protein metabolism, not elsewhere classified; L89.312 Pressure ulcer of right buttock, stage 2; J44.9 Chronic obstructive pulmonary disease, unspecified; M32.9 Systemic lupus erythematosus, unspecified; N18.9 Chronic kidney disease, unspecified; E78.5 Hyperlipidemia, unspecified; K21.9 Gastro-esophageal reflux disease without esophagitis; W10.9XXD Fall (on) (from) unspecified stairs and steps, subsequent encounter; Z87.891 Personal history of nicotine dependence; Z79.51 Long term (current) use of inhaled steroids; G89.29 Other chronic pain; Z79.899 Other long term (current) drug therapy; Z95.0 Presence of cardiac pacemaker
CPT/HCPCS: 36415; 71046; 73130; 74230; 80048; 80053; 82274; 82728; 82746; 83540; 83550; 83735; 83880; 83930; 83935; 84100; 84300; 85025; 85027; 85045; 85610; 85652; 86038; 86140; 86200; 86225; 86235; 86431; 92526; 92610; 92611; 94640; 94668; 94762; 97110; 97116; 97162; 97166; 97530; 97535; 97802; J7030; A4216; J1940

== ENCOUNTER 2024-02-13 05:30 | Day surgery (SDC) | payer MEDICARE, OTHER, SELFPAY ==
[2024-02-13] VITALS (12 sets, daily range): BP systolic 70–112; BP diastolic 49–75; PULSE 59–68; RESP 12–19; TEMP 36.1–36.4; O2SAT 90–99; BMI 25.8
[2024-02-13] MEDS: Lactated Ringers 1,000 ML 15 ML IV (05:45)
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
--- NOTE | 2024-02-13 06:45 | EGD_PTH ---
PATIENT: RANDAL AGUILAR LOC: EN U#:[id number] AGE/SX: 83/M ROOM: RE02/13/[address]: Dr. Kenroy Mccarthy DO : 1940 BED: DIS: 02/13/2024 SPEC #: [id number] RECD: 02/13/24 10:36 STATUS: AVIVA MORELANDCourtney #: [id number] DANTE: 02/13/24 06:[address]: Kenroy Mccarthy DEPT: SURGICAL PATHOLOGY RECD BY: John Light ENTERED: 02/13/24 11:45 SP TYPE: EGD BIOPSY OT DR: Dr. Casey Martinez MD Tissues: Duodenum, NOS Procedures: Surgery Specimen Level IV HEADER OPERATION: EGD with attempted stent removal, biopsy PRE-OP DIAGNOSIS: Duodenal stricture TISSUE SUBMITTED: Duodenal biopsy MICROSCOPIC DIAGNOSIS Duodenum, biopsy: Fragments of duodenal mucosa with moderate acute and chronic inflammation. See comment. MOMO/ 02/16/2024 COMMENT Please also make reference to previous specimen [id number] duodenal stricture, biopsy with diagnosis of fragments of duodenal mucosa with acute and chronic inflammation, congestion and hemorrhage. MICROSCOPIC DESCRIPTION Slides are reviewed. GROSS DESCRIPTION Received in fixative is one container labeled with the patient's name and designated Duodenal biopsy. The specimen consists of multiple irregular fragments of light miguel soft tissue that in aggregate measure 1.0 x 0.5 x 0.1 cm. The specimen is totally submitted in one cassette. / 02/13/2024 TC:3 CPT:27552
--- NOTE | 2024-02-13 06:46 | PRE.ANES_ITS ---
ASA Classification* ASA Classification ASA Classification: 3 Assessment & Plan Anesthesia* Anesthesia Assessment Anesthesia Assessment: Discussed sedation and/or anesthesia options, risks, benefits, and alternatives with patient/parents/legal guardian/POA. Questions invited. The patient/parents/legal guardian/POA seems to understand and agrees to proceed with anesthesia plan. Reviewed the physical assessment, medical history, allergy history and patient home medications list prior to surgery/procedure/anesthetic and documented any changes. Performed airway and anesthesia risk assessments. Anesthesia Type Anesthesia Type: MAC History Source History Obtained from:: Patient and Chart Anesthesia Focused Assessment* Temperature: 97.4 F Pulse Rate: 61 Blood Pressure: 106/66 Respiratory Rate: 19 Pulse Ox: 93 Airway Assessment Mouth opens: >3 cm Mallampati Score: II Focused Labs Anesthesia Preop lab: CBC WBC 9.1 K/mm3 (4.4-11.0) 02/03/24 05:09 RBC 2.97 M/mm3 (4.6-6.2) L 02/03/24 05:09 Hgb 10.5 g/dL (13.0-16.5) L 02/03/24 05:09 Hct 30.7 % (40-54) L 02/03/24 05:09 Plt Count 113 K/mm3 (150-450) L 02/03/24 05:09 CHEMISTRY Potassium 4.0 mmol/L (3.5-5.1) 02/03/24 05:09 Sodium 132 mmol/L (136-145) L 02/03/24 05:09 Magnesium 1.9 mg/dL (1.6-2.6) 02/03/24 05:09 Phosphorus 2.7 mg/dL (2.5-4.9) 01/23/24 06:32 BUN 24 mg/dL (7-18) H 02/03/24 05:09 Creatinine 0.96 mg/dL (0.70-1.30) 02/03/24 05:09 Glucose 102 mg/dL (74-106) 02/03/24 05:09 POC Glucose 109 mg/dL (74-106) H 08/07/23 16:59 TSH 2.37 uIU/mL (0.358-3.74) 08/07/23 07:25 COAG PT 16.3 SECONDS (11.7-14.9) H 01/23/24 19:15 Pre-Assessment Diagnosis/Proposed Procedure Planned Operative Procedure(s): EGD Anesthesia History 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 When Was Last Pacemaker Check pt unsure 08/12/23 19:57 QUESTION #4 FULL TEXT: You/Your Family Experience fever (hyperthermia) with Anesthesia Last Oral Intake Last Oral intake: Last Oral Intake NPO since 05:00 02/13/24 06:13 Meds taken in AM with sips of Yes 02/13/24 06:13 water? Meds patient instructed to carvedilol 02/13/24 06:13 take am of surgery PONV PONV - pulp mill supervisor: PONV - pulp mill supervisor Female No 02/11/24 12:07 HX of Motion Sickness No 02/11/24 12:07 HX of N/V After Surgery No 02/11/24 12:07 Non-Smoker Yes 02/11/24 12:07 Duration of Surgery greater No 02/11/24 12:07 than 60 minutes Number of Risk Factors 1 02/11/24 12:07 PONV Score Low Risk 02/11/24 12:07 Height & Weight Height & Weight: Anesthesia: Height & Weight Height 5 ft 11 in 02/13/24 06:13 Weight: 84 kg 02/13/24 06:13 Body Mass Index (BMI) 25.8 02/13/24 06:13 Respiratory Assessment Respiratory Assessment - pulp mill supervisor: Respiratory Tract Infection Hx - pulp mill supervisor Hx Respiratory Tract Infection No 02/11/24 12:07 STOP Sleep Apnea STOP Sleep Apnea - pulp mill supervisor: STOP Sleep Apnea - pulp mill supervisor Hx Hypertension No 02/11/24 12:07 Hx Sleep Apnea No 02/11/24 12:07 CPAP BIPAP Do you snore loudly (louder No 02/11/24 12:07 than talking or can be heard Do you often feel tired/ No 02/11/24 12:07 fatigued/ sleepy during daytime? Has anyone observed you stop No 02/11/24 12:07 breathing during sleep? STOP Results Negative 02/11/24 12:07 QUESTION #5 FULL TEXT : Do you snore loudly (louder than talking or can be heard through closed doors)? 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 Specify any problems Hx of Preganancy in last 3 N/A 02/11/24 12:07 Months Nurse Filling Out Transfusion VCHRISTIN 02/11/24 12:07 & Questions: Date: 02/11/24 02/11/24 12:07 Time: 12:08 02/11/24 12:07 Patient unable to answer at this time (ie. confused, unrespo /Reproduction History /Reproductive History - pulp mill supervisor: /Reproductive Hx- pulp mill supervisor Hx Now Gestational Age (in weeks): EDC: Hx Hx Para Hx Section SAB Active Medications Active Medications: Current Medications Generic Name Dose Route Start Last Admin Trade Name Freq PRN Reason Stop Dose Admin Lactated Ringer's 1,000 mls @ 15 mls/hr 02/13/24 05:45 02/13/24 05:45 IV 15 mls/hr .Q48H SHARRON Administration PFSH Medical History Wears hearing aid Loss of hearing Wears dentures Wears glasses Arthritis High cholesterol History of leukemia Restless legs History of echocardiogram Back pain Former smoker Shortness of breath on exertion Hoarseness Chronic cough COPD (chronic obstructive pulmonary disease) Cardiology follow-up encounter History of rheumatic fever Macrocytic anemia Vertebral compression fracture Osteopenia Chronic back pain (HFpEF) heart failure with preserved ejection fraction Bilateral pleural effusion Duodenal stricture Ulcer of sacral region, stage 2 Chronic fatigue Major depressive disorder Benign prostate hyperplasia GERD (gastroesophageal reflux disease) Primary osteoarthritis Vitamin deficiency Megaloblastic anemia Chronic kidney disease Hyperlipidemia COPD (chronic obstructive pulmonary disease) Displaced fracture of tibia Chronic pain DDD (degenerative disc disease), thoracic DDD (degenerative disc disease), lumbar Fracture of wrist Home Medications ?Medication ?Instructions ?Recorded ?Last Taken ?Type ferrous sulfate 325 mg (65 mg 325 mg PO DAILY SUPPLEMENT 08/06/23 01/21/24 History iron) tablet primidone 50 mg tablet 50 mg PO BID SEIZURES 08/06/23 01/21/24 History melatonin 3 mg tablet 3 mg PO QHS PRN PRN Insomnia #0 08/14/23 01/15/24 Rx tabs atorvastatin 80 mg tablet 80 mg PO QHS cholesterol 12/31/23 01/20/24 History finasteride 5 mg tablet 5 mg PO DAILY prostate 12/31/23 01/21/24 History dutasteride 0.5 mg capsule 0.5 mg PO DAILY prostate 01/16/24 01/16/24 History fluticasone fur. 200 mcg-umeclid 1 ea inhalation DAILY breathing 01/16/24 01/16/24 History 62.5 mcg-vilant 25 mcg inhalat.powder (Trelegy Ellipta) ascorbic acid (vitamin C) 1,000 mg 1,000 mg PO DAILY supplement 01/21/24 Unknown History tablet,extended release (Vitamin C ER) celecoxib 100 mg capsule 100 mg PO LUNCH 30 days #30 caps 02/03/24 Unknown Rx duloxetine 30 mg capsule,delayed 30 mg PO DAILY 30 days #30 caps 02/03/24 Unknown Rx release gabapentin 100 mg capsule 100 mg PO BIDCM 30 days #60 caps 02/03/24 Unknown Rx gabapentin 300 mg capsule 300 mg PO 2100 30 days #30 caps 02/03/24 Unknown Rx pantoprazole 40 mg tablet,delayed 40 mg PO DAILY 30 days #30 tabs 02/03/24 Unknown Rx release sennosides 8.6 mg-docusate sodium 2 tab PO BID 30 days #120 tabs 02/03/24 Unknown Rx 50 mg tablet (Stimulant Laxative Plus) sodium chloride 1,000 mg soluble 1,000 mg PO TID 30 days #90 tabs 02/03/24 Unknown Rx tablet carvedilol 6.25 mg tablet 6.25 mg PO BID 02/11/24 Unknown History furosemide 40 mg tablet 40 mg PO DAILY 02/11/24 Unknown History umeclidinium 62.5 mcg/actuation 1 inh inhalation DAILY 02/11/24 Unknown History blister powder for inhalation (Incruse Ellipta) Allergy/AdvReac Type Severity Reaction Status Date / Time doxylamine Allergy UNKNOWN Verified 02/11/24 11:43 diphenhydramine (From [employer] AdvReac Unknown unknown Verified 02/11/24 11:43 (diphenhydramine)) Family History Father Rheumatoid arthritis Uncle Rheumatoid arthritis Surgical History History of carpal tunnel release History of pacemaker Social History household members: spouse Smoking Status: Former smoker how long ago did patient quit smoking: he quit smoking in 1976 Review of Systems (Anesthesia) ROS Narrative System reviewed and no additional complaints, except as documented.
--- NOTE | 2024-02-13 06:48 | PCM.PRE.AN2 ---
ASA Classification* ASA Classification ASA Classification: 3 Assessment & Plan Anesthesia* Anesthesia Assessment Anesthesia Assessment: Discussed sedation and/or anesthesia options, risks, benefits, and alternatives with patient/parents/legal guardian/POA. Questions invited. The patient/parents/legal guardian/POA seems to understand and agrees to proceed with anesthesia plan. Reviewed the physical assessment, medical history, allergy history and patient home medications list prior to surgery/procedure/anesthetic and documented any changes. Performed airway and anesthesia risk assessments. Anesthesia Type Anesthesia Type: MAC History Source History Obtained from:: Patient and Chart Anesthesia Focused Assessment* Temperature: 97.4 F Pulse Rate: 61 Blood Pressure: 106/66 Respiratory Rate: 19 Pulse Ox: 93 Airway Assessment Mouth opens: >3 cm Mallampati Score: II Focused Labs Anesthesia Preop lab: CBC WBC 9.1 K/mm3 (4.4-11.0) 02/03/24 05:09 RBC 2.97 M/mm3 (4.6-6.2) L 02/03/24 05:09 Hgb 10.5 g/dL (13.0-16.5) L 02/03/24 05:09 Hct 30.7 % (40-54) L 02/03/24 05:09 Plt Count 113 K/mm3 (150-450) L 02/03/24 05:09 CHEMISTRY Potassium 4.0 mmol/L (3.5-5.1) 02/03/24 05:09 Sodium 132 mmol/L (136-145) L 02/03/24 05:09 Magnesium 1.9 mg/dL (1.6-2.6) 02/03/24 05:09 Phosphorus 2.7 mg/dL (2.5-4.9) 01/23/24 06:32 BUN 24 mg/dL (7-18) H 02/03/24 05:09 Creatinine 0.96 mg/dL (0.70-1.30) 02/03/24 05:09 Glucose 102 mg/dL (74-106) 02/03/24 05:09 POC Glucose 109 mg/dL (74-106) H 08/07/23 16:59 TSH 2.37 uIU/mL (0.358-3.74) 08/07/23 07:25 COAG PT 16.3 SECONDS (11.7-14.9) H 01/23/24 19:15 Pre-Assessment Diagnosis/Proposed Procedure Planned Operative Procedure(s): EGD Anesthesia History 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 When Was Last Pacemaker Check pt unsure 08/12/23 19:57 QUESTION #4 FULL TEXT: You/Your Family Experience fever (hyperthermia) with Anesthesia Last Oral Intake Last Oral intake: Last Oral Intake NPO since 05:00 02/13/24 06:13 Meds taken in AM with sips of Yes 02/13/24 06:13 water? Meds patient instructed to carvedilol 02/13/24 06:13 take am of surgery PONV PONV - prn physical therapist: PONV - prn physical therapist Female No 02/11/24 12:07 HX of Motion Sickness No 02/11/24 12:07 HX of N/V After Surgery No 02/11/24 12:07 Non-Smoker Yes 02/11/24 12:07 Duration of Surgery greater No 02/11/24 12:07 than 60 minutes Number of Risk Factors 1 02/11/24 12:07 PONV Score Low Risk 02/11/24 12:07 Height & Weight Height & Weight: Anesthesia: Height & Weight Height 5 ft 11 in 02/13/24 06:13 Weight: 84 kg 02/13/24 06:13 Body Mass Index (BMI) 25.8 02/13/24 06:13 Respiratory Assessment Respiratory Assessment - prn physical therapist: Respiratory Tract Infection Hx - prn physical therapist Hx Respiratory Tract Infection No 02/11/24 12:07 STOP Sleep Apnea STOP Sleep Apnea - prn physical therapist: STOP Sleep Apnea - prn physical therapist Hx Hypertension No 02/11/24 12:07 Hx Sleep Apnea No 02/11/24 12:07 CPAP BIPAP Do you snore loudly (louder No 02/11/24 12:07 than talking or can be heard Do you often feel tired/ No 02/11/24 12:07 fatigued/ sleepy during daytime? Has anyone observed you stop No 02/11/24 12:07 breathing during sleep? STOP Results Negative 02/11/24 12:07 QUESTION #5 FULL TEXT : Do you snore loudly (louder than talking or can be heard through closed doors)? 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 Specify any problems Hx of Preganancy in last 3 N/A 02/11/24 12:07 Months Nurse Filling Out Transfusion VCHRISTIN 02/11/24 12:07 & Questions: Date: 02/11/24 02/11/24 12:07 Time: 12:08 02/11/24 12:07 Patient unable to answer at this time (ie. confused, unrespo /Reproduction History /Reproductive History - prn physical therapist: /Reproductive Hx- prn physical therapist Hx Now Gestational Age (in weeks): EDC: Hx Hx Para Hx Section SAB Active Medications Active Medications: Current Medications Generic Name Dose Route Start Last Admin Trade Name Freq PRN Reason Stop Dose Admin Lactated Ringer's 1,000 mls @ 15 mls/hr 02/13/24 05:45 02/13/24 05:45 IV 15 mls/hr .Q48H SHARRON Administration PFSH Medical History Wears hearing aid Loss of hearing Wears dentures Wears glasses Arthritis High cholesterol History of leukemia Restless legs History of echocardiogram Back pain Former smoker Shortness of breath on exertion Hoarseness Chronic cough COPD (chronic obstructive pulmonary disease) Cardiology follow-up encounter History of rheumatic fever Macrocytic anemia Vertebral compression fracture Osteopenia Chronic back pain (HFpEF) heart failure with preserved ejection fraction Bilateral pleural effusion Duodenal stricture Ulcer of sacral region, stage 2 Chronic fatigue Major depressive disorder Benign prostate hyperplasia GERD (gastroesophageal reflux disease) Primary osteoarthritis Vitamin deficiency Megaloblastic anemia Chronic kidney disease Hyperlipidemia COPD (chronic obstructive pulmonary disease) Displaced fracture of tibia Chronic pain DDD (degenerative disc disease), thoracic DDD (degenerative disc disease), lumbar Fracture of wrist Home Medications ?Medication ?Instructions ?Recorded ?Last Taken ?Type ferrous sulfate 325 mg (65 mg 325 mg PO DAILY SUPPLEMENT 08/06/23 01/21/24 History iron) tablet primidone 50 mg tablet 50 mg PO BID SEIZURES 08/06/23 01/21/24 History melatonin 3 mg tablet 3 mg PO QHS PRN PRN Insomnia #0 08/14/23 01/15/24 Rx tabs atorvastatin 80 mg tablet 80 mg PO QHS cholesterol 12/31/23 01/20/24 History finasteride 5 mg tablet 5 mg PO DAILY prostate 12/31/23 01/21/24 History dutasteride 0.5 mg capsule 0.5 mg PO DAILY prostate 01/16/24 01/16/24 History fluticasone fur. 200 mcg-umeclid 1 ea inhalation DAILY breathing 01/16/24 01/16/24 History 62.5 mcg-vilant 25 mcg inhalat.powder (Trelegy Ellipta) ascorbic acid (vitamin C) 1,000 mg 1,000 mg PO DAILY supplement 01/21/24 Unknown History tablet,extended release (Vitamin C ER) celecoxib 100 mg capsule 100 mg PO LUNCH 30 days #30 caps 02/03/24 Unknown Rx duloxetine 30 mg capsule,delayed 30 mg PO DAILY 30 days #30 caps 02/03/24 Unknown Rx release gabapentin 100 mg capsule 100 mg PO BIDCM 30 days #60 caps 02/03/24 Unknown Rx gabapentin 300 mg capsule 300 mg PO 2100 30 days #30 caps 02/03/24 Unknown Rx pantoprazole 40 mg tablet,delayed 40 mg PO DAILY 30 days #30 tabs 02/03/24 Unknown Rx release sennosides 8.6 mg-docusate sodium 2 tab PO BID 30 days #120 tabs 02/03/24 Unknown Rx 50 mg tablet (Stimulant Laxative Plus) sodium chloride 1,000 mg soluble 1,000 mg PO TID 30 days #90 tabs 02/03/24 Unknown Rx tablet carvedilol 6.25 mg tablet 6.25 mg PO BID 02/11/24 Unknown History furosemide 40 mg tablet 40 mg PO DAILY 02/11/24 Unknown History umeclidinium 62.5 mcg/actuation 1 inh inhalation DAILY 02/11/24 Unknown History blister powder for inhalation (Incruse Ellipta) Allergy/AdvReac Type Severity Reaction Status Date / Time doxylamine Allergy UNKNOWN Verified 02/11/24 11:43 diphenhydramine (From [employer] AdvReac Unknown unknown Verified 02/11/24 11:43 (diphenhydramine)) Family History Father Rheumatoid arthritis Uncle Rheumatoid arthritis Surgical History History of carpal tunnel release History of pacemaker Social History household members: spouse Smoking Status: Former smoker how long ago did patient quit smoking: he quit smoking in 1976 Review of Systems (Anesthesia) ROS Narrative System reviewed and no additional complaints, except as documented.
--- NOTE | 2024-02-13 07:10 | RAD_ITS ---
STUDY: X-RAY - ABDOMEN/PELVIS REASON FOR EXAM: Male, 83 years old. EGD SWAPPING DUODENUM STENT TECHNIQUE: Single AP view of the abdomen / pelvis. COMPARISON: None. FINDINGS: 11 seconds of fluoroscopy of the abdomen was utilized in the operating room during duodenal stent replacement in 2 images are cemented for interpretation. . RAD/Fluoroscopy 1 Hr or Less IMPRESSION: Fluoroscopy during duodenal stent replacement. Electronically Signed: Paul Forbes MD at 11:24 EDT ,
--- NOTE | 2024-02-13 07:49 | OP.CCLET_ITS ---
02/13/2024 Casey Martinez Re : Upper GI endoscopy procedure for Monty Roberts Dear Michelle This procedure was performed on Tuesday, February 13, 2024. My impressions and recommendations are as follows: Impressions : - Esophageal plaques were found, consistent with candidiasis. - Normal stomach. - Metal stent in the duodenum. - Acquired duodenal stenosis. Biopsied. Recommendations : - Discharge patient to home. - Resume previous diet. - Continue present medications. - Await pathology results. My findings are described in the full procedure note, which is enclosed. If I can be of further assistance, please feel free to contact me at . Sincerely, Kenroy Mccarthy, 02/13/2024 7:48:28 AM This report has been signed electronically.
--- NOTE | 2024-02-13 07:49 | OP.EGD_ITS ---
Patient Name: Monty Roberts Procedure Date: 02/13/2024 6:15 AM Date of : 1940 Age: 83 Procedure: Upper GI endoscopy Indications: For dilation and stenting of duodenal stenosis Providers: Kenroy Mccarthy DO Referring MD: Casey Martinez Medicines: Monitored Anesthesia Care Patient Profile: This is an 83 year old male. Refer to note in patient chart for documentation of history and physical. Patient has symptoms. Complications: No immediate complications. Procedure: Pre-Anesthesia Assessment: - Prior to the procedure, a History and Physical was performed, and patient medications and allergies were reviewed. The patient is competent. The risks and benefits of the procedure and the sedation options and risks were discussed with the patient. All questions were answered and informed consent was obtained. Patient identification and proposed procedure were verified by the physician in the pre-procedure area. Mental Status Examination: alert and oriented. Airway Examination: normal oropharyngeal airway and neck mobility. Respiratory Examination: clear to auscultation. CV Examination: normal. Prophylactic Antibiotics: The patient does not require prophylactic antibiotics. Prior Anticoagulants: The patient has taken no anticoagulant or antiplatelet agents except for NSAID medication. ASA Grade Assessment: II - A patient with mild systemic disease. After reviewing the risks and benefits, the patient was deemed in satisfactory condition to undergo the procedure. The anesthesia plan was to use monitored anesthesia care (MAC). Immediately prior to administration of medications, the patient was re-assessed for adequacy to receive sedatives. The heart rate, respiratory rate, oxygen saturations, blood pressure, adequacy of pulmonary ventilation, and response to care were monitored throughout the procedure. The physical status of the patient was re-assessed after the procedure. After obtaining informed consent, the endoscope was passed under direct vision. Throughout the procedure, the patient's blood pressure, pulse, and oxygen saturations were monitored continuously. The Endoscope was introduced through the mouth, and advanced to the second part of duodenum. The upper GI endoscopy was accomplished without difficulty. The patient tolerated the procedure well. Scope In: 7:10:57 AM Scope Out: 7:42:20 AM Total Procedure Duration Time 0 hours 31 minutes 23 seconds Findings: Diffuse, white plaques were found in the entire esophagus. The entire examined stomach was normal. A previously placed metal stent was seen in the duodenal bulb, in the first portion of the duodenum and in the second portion of the duodenum. An acquired benign-appearing, intrinsic severe stenosis was found in the first portion of the duodenum and was traversed. Biopsies were taken with a cold forceps for histology. Verification of patient identification for the specimen was done. Estimated blood loss was minimal. Impression: - Esophageal plaques were found, consistent with candidiasis. - Normal stomach. - Metal stent in the duodenum. - Acquired duodenal stenosis. Biopsied. Recommendation: - Discharge patient to home. - Resume previous diet. - Continue present medications. - Await pathology results. Procedure Code(s): --- Professional --- 03459, Esophagogastroduodenoscopy, flexible, transoral; with biopsy, single or multiple CPT copyright 2021 [employer]. All rights reserved. The codes documented in this report are preliminary and upon final assembly inspector review may be revised to meet current compliance requirements. Kenroy Mccarthy DO 02/13/2024 7:48:28 AM This report has been signed electronically. Number of Addenda: 0 Note Initiated On: 02/13/2024 6:15 AM
--- NOTE | 2024-02-13 07:50 | PCM.POST.ANE ---
Anesthesia: Postop Eval I Current Vital Signs Temperature: 97.5 F Pulse Rate: 64 Blood Pressure: 72/53 Respiratory Rate: 14 Pulse Ox: 96 Oxygen Delivery Method: Nasal Cannula Oxygen Flow Rate (L/min): 6 Assessment Airway patent: Yes Spontaneous unlabored respirations: Yes Mental status: Asleep nausea: No Vomiting: No Anesthesia Complication: Yes Anesthesia Complication Comment:: labile BP Fluid Hydration Crystalloid volume administer (ml): 400 Total IV fluid infused: 400 Progress Note Anesthesia document: Postop Eval 1 completed: Yes
--- NOTE | 2024-02-13 08:16 | PCM.POSTANE2 ---
Anesthesia Postop Eval I Sum Postop Eval Completion status Anesthesia document: Postop Eval 1 completed: Yes Anesthesia Postop Eval I Summary Anesthesia Postop Eval I Summary: Anesthesia Postop Eval I: Assessment Summary Airway patent Yes 02/13/24 08:16 [email or web address] Spontaneous unlabored Yes 02/13/24 08:16 [email or web address] respirations Mental status Asleep 02/13/24 08:16 [email or web address] nausea No 02/13/24 08:16 [email or web address] Vomiting No 02/13/24 08:16 [email or web address] Anesthesia Postop Eval I: Fluid Summary Crystalloid volume administer 400 02/13/24 08:16 [email or web address] (ml) Colloids volume administered ( ml) Blood Product volume administered (ml) Total IV fluid infused 400 02/13/24 08:16 [email or web address] Anesthesia Postop Eval I: Summary Notes Anesthesia Complication Yes 02/13/24 08:16 [email or web address] Anesthesia Complication labile BP 02/13/24 08:16 [email or web address] Comment: Post-operative progress note Anesthesia: Postop Eval II Evaluation Mental status: Awake Pain Level: 0 nausea: No Vomiting: No
== END 2024-02-13 09:00 | disposition home or self-care (01) ==
LOC: EN 05:32 → AC 05:33
PROVIDERS: PCP Family Medicine; Referring Provider Family Medicine; Visit Provider Internal Medicine Gastroenterology
PROC: 0DJ08ZZ Inspection of Upper Intestinal Tract, Via Natural or Artificial Opening Endoscopic (ICD-10-PCS; CPT 43235; principal; 2024-02-13 06:40)
DX: K31.5 Obstruction of duodenum (principal); K22.89 Other specified disease of esophagus
CPT/HCPCS: 43239; 76000; 88305; J7120; J2405

== ENCOUNTER 2024-02-16 14:44 | Emergency (ER) | payer MEDICARE, OTHER, SELFPAY ==
[2024-02-16 14:44] VITALS: BP 90/46; PULSE 73; RESP 19; TEMP 35.2; O2SAT 93
[2024-02-16 14:49] VITALS: BP 91/51
[2024-02-16 16:50] VITALS: BP 152/82; PULSE 75; RESP 19; O2SAT 97
--- NOTE | 2024-02-16 16:52 | ED.VIS.GI ---
HPI HPI - GI History of Present Illness Chief Complaint: Diarrhea Informant: patient Nausea/Vomiting/Emesis GI Symptom: Negative for Nausea or Vomiting Diarrhea/Melena/Hematochezia GI Symptom: Positive for Diarrhea Onset: Today Stool Quality: Positive for Watery Associated Symptoms Associated Symptoms: Positive for Frequency; Negative for Dysuria, Hematuria or Urgency Narrative Narrative: Patient presents with diarrhea that began this morning. Patient states he had an endoscopy [address] Mccarthy. Patient states that he was doing well after the procedure. Patient states that today he woke up and started having watery diarrhea. Patient denies any melena or hematochezia. Patient admits to some urinary frequency. Patient denies any dysuria or hematuria. Patient denies any nausea or vomiting. Patient denies any abdominal pain. [facility] Medical History Wears hearing aid Loss of hearing Wears dentures Wears glasses Arthritis High cholesterol History of leukemia Restless legs History of echocardiogram Back pain Former smoker Shortness of breath on exertion Hoarseness Chronic cough COPD (chronic obstructive pulmonary disease) Cardiology follow-up encounter History of rheumatic fever Macrocytic anemia Vertebral compression fracture Osteopenia Chronic back pain (HFpEF) heart failure with preserved ejection fraction Bilateral pleural effusion Duodenal stricture Ulcer of sacral region, stage 2 Chronic fatigue Major depressive disorder Benign prostate hyperplasia GERD (gastroesophageal reflux disease) Primary osteoarthritis Vitamin deficiency Megaloblastic anemia Chronic kidney disease Hyperlipidemia COPD (chronic obstructive pulmonary disease) Displaced fracture of tibia Chronic pain DDD (degenerative disc disease), thoracic DDD (degenerative disc disease), lumbar Fracture of wrist Home Medications ?Medication ?Instructions ?Recorded ?Last Taken ?Type ferrous sulfate 325 mg (65 mg 325 mg PO DAILY SUPPLEMENT 08/06/23 01/21/24 History iron) tablet primidone 50 mg tablet 50 mg PO BID SEIZURES 08/06/23 01/21/24 History melatonin 3 mg tablet 3 mg PO QHS PRN PRN Insomnia #0 08/14/23 01/15/24 Rx tabs atorvastatin 80 mg tablet 80 mg PO QHS cholesterol 12/31/23 01/20/24 History finasteride 5 mg tablet 5 mg PO DAILY prostate 12/31/23 01/21/24 History dutasteride 0.5 mg capsule 0.5 mg PO DAILY prostate 01/16/24 01/16/24 History fluticasone fur. 200 mcg-umeclid 1 ea inhalation DAILY breathing 01/16/24 01/16/24 History 62.5 mcg-vilant 25 mcg inhalat.powder (Trelegy Ellipta) ascorbic acid (vitamin C) 1,000 mg 1,000 mg PO DAILY supplement 01/21/24 Unknown History tablet,extended release (Vitamin C ER) celecoxib 100 mg capsule 100 mg PO LUNCH 30 days #30 caps 02/03/24 Unknown Rx duloxetine 30 mg capsule,delayed 30 mg PO DAILY 30 days #30 caps 02/03/24 Unknown Rx release gabapentin 100 mg capsule 100 mg PO BIDCM 30 days #60 caps 02/03/24 Unknown Rx gabapentin 300 mg capsule 300 mg PO 2100 30 days #30 caps 02/03/24 Unknown Rx pantoprazole 40 mg tablet,delayed 40 mg PO DAILY 30 days #30 tabs 02/03/24 Unknown Rx release sennosides 8.6 mg-docusate sodium 2 tab PO BID 30 days #120 tabs 02/03/24 Unknown Rx 50 mg tablet (Stimulant Laxative Plus) sodium chloride 1,000 mg soluble 1,000 mg PO TID 30 days #90 tabs 02/03/24 Unknown Rx tablet carvedilol 6.25 mg tablet 6.25 mg PO BID 02/11/24 Unknown History furosemide 40 mg tablet 40 mg PO DAILY 02/11/24 Unknown History umeclidinium 62.5 mcg/actuation 1 inh inhalation DAILY 02/11/24 Unknown History blister powder for inhalation (Incruse Ellipta) Allergy/AdvReac Type Severity Reaction Status Date / Time doxylamine Allergy UNKNOWN Verified 02/16/24 14:46 diphenhydramine (From [employer] AdvReac Unknown unknown Verified 02/16/24 14:46 (diphenhydramine)) Family History Father Rheumatoid arthritis Uncle Rheumatoid arthritis Surgical History History of carpal tunnel release History of pacemaker Social History household members: spouse Smoking Status: Former smoker how long ago did patient quit smoking: he quit smoking in 1976 ROS ROS ED Constitutional Constitutional ED: Denies chills or fever(s) Eyes Eyes: Denies blurry vision or change in vision ENT ENT ED: Denies rhinorrhea or sore throat Cardiovascular Cardiovascular: Denies chest pain or palpitations Respiratory/Chest Respiratory/Chest: Reports cough; Denies dyspnea Gastrointestinal Gastrointestinal: Reports diarrhea; Denies nausea or vomiting Genitourinary Genitourinary ED: Reports urinary frequency; Denies dysuria or hematuria Musculoskeletal Musculoskeletal: Reports back pain; Denies neck pain Integumentary Denies abscess or rash Neurologic Neurologic: Denies headache(s) or weakness Allergic/Immunologic Allergic/Immunologic ED: Denies mouth swelling or urticaria EXAM Physical Exam Const Vital Signs: 02/16/24 14:44 02/16/24 14:49 02/16/24 16:50 Temperature 95.4 F L Temperature Source Temporal Pulse Rate 73 75 Respiratory Rate 19 H 19 H Blood Pressure 90/46 L 91/51 L 152/82 H Blood Pressure Mean 60 64 105 Pulse Ox 93 97 Oxygen Delivery Method Room Air Room Air 02/16/24 18:00 02/16/24 20:00 Temperature Temperature Source Pulse Rate 72 74 Respiratory Rate 19 H 18 Blood Pressure 158/75 H 144/70 H Blood Pressure Mean 102 94 Pulse Ox 97 95 Oxygen Delivery Method Room Air Positive well nourished and well developed General Appearance ED: well developed and NAD HEENT Reports moist mucous membranes Neck supple and no JVD Resp normal respiratory effort and clear to auscultation bilaterally Cardio regular rate and regular rhythm GI non-tender and non-distended Palpation: soft Neuro CN's II-XII intact bilaterally, moves all extremities and no sensory deficits noted Sensorium / Orientation: alert Motor Exam: strength 5/5 throughout Psych mental status grossly normal MDM MDM MDM Narrative Medical decision making narrative: Differential diagnosis includes viral illness, infectious enteritis, dehydration, electrolyte abnormality, anemia, and urinary tract infection. CBC will be obtained to assess for leukocytosis and anemia. Comprehensive metabolic profile will be obtained to assess for electrolyte abnormality, renal function, and hepatic function. Urinalysis will be obtained to assess for urinary tract infection and hematuria. Lab Data Attestation: I reviewed the patient's lab results. Lab results narrative: CBC was reviewed. There is a mild anemia with a hemoglobin of 12.2 and hematocrit 35.8. Platelets are slightly low at 122. Comprehensive metabolic profile was reviewed and was essentially within normal limits. Urinalysis was reviewed. There is no evidence of urinary tract infection or hematuria. Labs: Laboratory Results - last 24 hr 02/16/24 02/16/24 16:56 17:50 WBC 10.0 RBC 3.39 L Hgb 12.2 L Hct 35.8 L MCV 105.6 H MCH 36.0 H MCHC 34.1 RDW Std Deviation 59.4 H RDW Coeff of Eleanor 15.3 H Plt Count 122 L MPV 11.9 Immature Gran % (Auto) 0.400 Neut % (Auto) 68.6 Lymph % (Auto) 20.5 [place] % (Auto) 9.0 Eos % (Auto) 1.3 Baso % (Auto) 0.2 Absolute Neuts (auto) 6.9 Absolute Lymphs (auto) 2.05 Nucleated RBC % 0 Sodium 135 L Potassium 3.9 Chloride 101 Carbon Dioxide 30.0 Anion Gap 4 L BUN 19 H Creatinine 1.16 Est GFR (MDRD) Af Amer 77 Est GFR (MDRD) Non-Af 64 BUN/Creatinine Ratio 16.4 Glucose 105 Calcium 8.9 Total Bilirubin 0.70 AST 26 ALT 22 Alkaline Phosphatase 153 H Total Protein 7.5 Albumin 2.5 L Globulin 5.0 H Albumin/Globulin Ratio 0.5 L Urine Color Yellow Urine Clarity Clear Urine pH 7.0 Ur Specific [place] 1.010 Urine Protein Negative Urine Glucose (UA) Normal Urine Ketones Negative Urine Occult Blood Negative Urine Nitrite Negative Urine Bilirubin Negative Urine Urobilinogen 1 H Ur Leukocyte Esterase Negative Urine RBC 0 SEEN Urine WBC 0 SEEN Ur Squamous Epith Cells 0 SEEN Urine Bacteria 0 SEEN Urine Mucus 0 SEEN Treatment and Re-Evaluation :: Patient was given IV fluids. Case was discussed with Dr. Mccarthy from gastroenterology. He recommended obtaining stool for C. difficile and enteric pathogens. This was ordered and is pending. Patient was instructed to drink plenty of fluids. Patient states he is feeling better on reevaluation. Patient states his last bowel movement is more like his normal bowel movements. Patient was instructed to follow-up with his primary care physician in 5 to 7 days. Patient was instructed to follow-up with Dr. Mccarthy as scheduled. Patient was instructed to return if worse in any way. Patient understood and was agreeable with the plan. All questions were answered. Discharge Plan Triage Chief Complaint: Diarrhea ED Provider: Chris Gaytan Dx/Rx/DC Orders Clinical Impression: Diarrhea, COPD (chronic obstructive pulmonary disease) Instructions: ED Diarrhea, Unknown Cause Prescriptions: No Action atorvastatin 80 mg tablet 80 mg PO QHS finasteride 5 mg tablet 5 mg PO DAILY ferrous sulfate 325 mg (65 mg iron) tablet 325 mg PO DAILY primidone 50 mg tablet 50 mg PO BID melatonin 3 mg Tablet 3 mg PO QHS PRN PRN (Reason: Insomnia) Qty: 0 0RF Incruse Ellipta 62.5 mcg/actuation blister with device 1 inh inhalation DAILY furosemide 40 mg Tablet 40 mg PO DAILY carvedilol 6.25 mg tablet 6.25 mg PO BID Vitamin C 1,000 mg tablet extended release 1,000 mg PO DAILY pantoprazole 40 mg Tablet,Delayed Release (Dr/Ec) 40 mg PO DAILY 30 Days Qty: 30 0RF gabapentin 300 mg Capsule 300 mg PO 2100 30 Days Qty: 30 0RF gabapentin 100 mg Capsule 100 mg PO BIDCM 30 Days Qty: 60 0RF celecoxib 100 mg Capsule 100 mg PO LUNCH 30 Days Qty: 30 0RF duloxetine 30 mg Capsule,Delayed Release(Dr/Ec) 30 mg PO DAILY 30 Days Qty: 30 0RF sennosides-docusate sodium [Stimulant Laxative Plus] 8.6-50 mg Tablet 2 tab PO BID 30 Days Qty: 120 0RF sodium chloride 1,000 mg Tablet,Soluble 1,000 mg PO TID 30 Days Qty: 90 0RF dutasteride 0.5 mg capsule 0.5 mg PO DAILY Trelegy Ellipta 200-62.5-25 mcg blister with device 1 ea inhalation DAILY Primary Care Provider: Casey Martinez Referrals: Casey Martinez MD [Primary Care Provider] - 3-5 Days Kenroy Mccarthy DO [Med Staff - Active Staff] - 3-5 Days Print Language: Yoruba Disposition Disposition: Home, Self Care
[2024-02-16 17:31] LABS: Absolute Lymphocyte Count 2.05 X10^3/uL (0.83-4.51); Absolute Neutrophil Count 6.9 X10^3/uL (2.0-7.7); Basophil# 0.02 X10^3/uL; Basophil% 0.2 % (0-1); Eosinophil# 0.13 X10^3/uL; Eosinophils% 1.3 % (0-5); Hematocrit 35.8 % (40-54); Hemoglobin 12.2 g/dL (13.0-16.5); Lymphocyte # 2.05 X10^3/ul (0.83-4.51); Lymphocyte % 20.5 % (19-41); Mean Corp Hgb Conc 34.1 g/dL (32-36); Mean Corpuscular Volume 105.6 fL (80-94); Mean Platelet Vol. 11.9 fl (6.2-12.0); NRBC Flagged by Analyzer 0 % (0-5); Neutrophil # 6.86 X10^3/uL (2.7-7.7); Neutrophil % 68.6 % (47-70); Platelet Count 122 K/mm3 (150-450); RBC Distribution Width CV 15.3 % (11.6-14.6); RBC Distribution Width SD 59.4 fl (35.1-43.9); Red Blood Count 3.39 M/mm3 (4.6-6.2)
[2024-02-16] MEDS: 0.9% Normal Saline (1000mL) 1,000 ML 999 ML IV (17:34)
[2024-02-16 17:41] LABS: ALB/GLOB Ratio 0.5 RATIO (0.9-2.4); AST(SGOT) 26 U/L (15-37); Alanine Aminotransfer ALT/SGPT 22 U/L (16-61); Albumin, Serum 2.5 g/dL (3.2-5.0); Alkaline Phosphatase 153 U/L (45-117); Anion Gap 4 (5-15); BUN 19 mg/dL (7-18); BUN/Creat Ratio 16.4 RATIO (10-20); Calcium,Total 8.9 mg/dL (8.5-10.1); Chloride 101 mmol/L (98-107); Creatinine, Serum 1.16 mg/dL (0.70-1.30); EST Glomerular Filtration Rate 64 mL/min (>60); Est Glom Filt Rate - Afr Amer 77 mL/min (>60); Glucose 105 mg/dL (74-106); Potassium 3.9 mmol/L (3.5-5.1); Protein, Total 7.5 g/dL (6.4-8.2); Sodium Level 135 mmol/L (136-145)
[2024-02-16 18:00] VITALS: BP 158/75; PULSE 72; RESP 19; O2SAT 97
[2024-02-16 18:01] LABS: Bacteria 0 SEEN /hpf (None Seen); Mucous, Urine 0 SEEN /hpf (<or=2+); Red Blood Cells-Urine 0 SEEN /hpf (0-5); Squamous Epithelial Cells - UA 0 SEEN /hpf (0-5); White Blood Cells 0 SEEN /hpf (0-5)
[2024-02-16 18:16] LABS: Color, Urine Yellow (Yellow); Glucose, Dipstick Normal (Normal); Ketone-Dipstick Negative (Negative); Leukocyte Esterase-Dipstick Negative /ul (Negative); Nitrite-Dipstick Negative (Negative); Occult Blood-Urine Negative /ul (Negative); Protein-Dipstick Negative (Negative); Urine Bilirubin Dipstick Negative (Negative); Urine Clarity Clear (Clear); Urine Urobilinogen 1 mg/dl (Normal)
[2024-02-16 20:00] VITALS: BP 144/70; PULSE 74; RESP 18; O2SAT 95
[2024-02-16 20:35] VITALS: BP 148/79; PULSE 73; RESP 19; TEMP 36.7; O2SAT 96
== END 2024-02-16 20:50 | disposition home or self-care (01) ==
PROVIDERS: Emergency Provider Emergency Medicine; PCP Family Medicine; Visit Provider Emergency Medicine
DX: R19.7 Diarrhea, unspecified (principal); I50.32 Chronic diastolic (congestive) heart failure; J44.9 Chronic obstructive pulmonary disease, unspecified; N18.9 Chronic kidney disease, unspecified; Z87.891 Personal history of nicotine dependence
CPT/HCPCS: 80053; 81001; 85025; 87493; 87506; 96360; 99282; J7030; A4216